=== PATIENT | female | born 1940 | race Caucasian/White ===

== ENCOUNTER → 2024-01-06 08:37 | Outpatient (REF) | payer OTHER, SELFPAY | LOC: RAD 08:37 | PROVIDERS: ATTENDING PHYSICIAN Surgery; FAMILY PHYSICIAN Family Medicine | DX: K21.9 Gastro-esophageal reflux disease without esophagitis (principal) | CPT/HCPCS: 74240 ==

== ENCOUNTER 2024-03-01 21:44 | Emergency (ER) | payer OTHER, SELFPAY ==
[2024-03-01 21:49] VITALS: BP 186/102
[2024-03-01 22:03] LABS: % Basophils 1.2 % (0-2); % Eosinophils 3.1 % (0-6); % Immature Granulocytes 0.3 % (0-0.5); % Lymphocytes 35.3 % (20.5-51.1); % Monocytes 11.4 % (1.7-9.3); % Neutrophils 48.7 % (42.2-75.2); Absolute Basophils 0.1 10^3/uL (0-0.2); Absolute Eosinophils 0.2 10^3/uL (0-0.7); Absolute Lymphocytes 2.3 10^3/uL (1.2-3.4); Absolute Monocytes 0.7 10^3/uL (0.1-0.6); Absolute Neutrophils 3.2 10^3/uL (1.4-6.5); Hematocrit 38.5 % (37.0-47.0); Hemoglobin 13.4 g/dL (12.0-16.0); Mean Corp Hgb Conc. 34.8 g/dL (33.0-37.0); Mean Corpuscular Volume 89.1 fL (81.0-99.0); Mean Platelet Volume 9.5 fL (7.4-10.4); Nucleated Red Blood Cells % 0 %; Platelet Count 289 10^3/uL (130-400); Red Blood Cell Count 4.32 10^6/uL (4.20-5.40); Red Cell Dist. Width 13.3 % (11.5-14.5); White Blood Cell Count 6.5 10^3/uL (4.8-10.8)
[2024-03-01 22:19] LABS: ALT (SGPT) 23 U/L (0-35); AST (SGOT) 40 U/L (14-36); Albumin 4.7 g/dl (3.5-5.0); Alkaline Phosphatase 82 U/L (38-126); Blood Urea Nitrogen 12 mg/dl (7-17); Calcium 10.1 mg/dl (8.4-10.2); Carbon Dioxide 26 mmol/L (22-30); Chloride 97 mmol/L (98-107); Glucose 101 mg/dl (70-99); Sodium 133 mmol/L (135-145); Total Bilirubin 1.2 mg/dl (0.2-1.3); Total Protein 7.4 g/dl (6.3-8.2); eGFR > 60.00
--- NOTE | 2024-03-02 00:38 | ED.GENMED ---
History of Present Illness
General
Chief Complaint: Abdominal Pain
Source: patient and family
Time Seen by Provider: 03/02/24 00:25
Travel History
Have you had any contact with someone who has COVID-19?: No
Do you have any symptoms of coronavirus? Fever > 100 degrees, chills, cough, shortness of breath, sore throat, loss of taste or smell, muscle aches, or headache?: No
History of Present Illness
History of Present Illness:
This patient is an 83-year-old female who says that right now she feels 'okay'. However, yesterday she says that she ate, had a bowel movement, and then noted nausea. She then had 2 episodes of vomiting, 1 brown in appearance and another green,
consider 'all liquid' without blood. She then noted discomfort across her lower abdomen particular the left lower quadrant which was reminiscent to her of when she had a bowel obstruction in the past. Her symptoms have gradually improved such that
she no longer has abdominal pain. She ate 3 meals today and is hungry now. She denies having any nausea or vomiting today. She has not had a bowel movement today. She denies abdominal distention, back pain, chest pain, shortness of breath, or
other complaints
Past History
Past History
ED Past Medical History: Cancer (ovarian), HTN, Hypercholesterolemia, Valvular disease (Mild tricuspid regurgitation) and Other (valve disorder)
ED Past Surgical History: Bowel resection (Small bowel resection for small bowel obstruction January 2017) and Other (Hysterectomy for ovarian CA, bilateral caataract surgery, sinus surgery, left inguinal hernia repair April 2018)
Social History
Tobacco: Former smoker
Alcohol: None
Drug: None
Personal:
Living: with family
Employment: Retired
Family History
Family History: Hypertension
Phy Exam
Physical Exam
Physical Exam:
GENERAL: Alert , in no apparent distress
EYE: pupils equal and reactive
NECK: Supple, no significant adenopathy.
ENT: o/p clr, mmm.
CARDIAC: Regular rate and rhythm .
LUNGS: Clear breath sounds bilaterally, no acute respiratory distress, no wheezes/rales/rhonchi
ABDOMEN: Soft, without focal tenderness, no r/g, no cvat, NABS
NEUROLOGICAL: Alert and oriented, no focal neuro deficits
SKIN: Warm and dry, skin intact.
MUSCULOSKELETAL: No edema, well perfused.
PSYCH: Normal and appropriate interaction.
Course
Orders/Labs/Results
Orders:
Orders
03/01/24 21:57
CMP [Comprehensive Metabolic Panel] Urgent
Complete Blood Count/With Diff Urgent
03/02/24 00:37
CR Obstruct Series W/pa Chest Urgent
Comment:
Reason For Exam: hx bowel resec, abd pain/n/v
Abnormal Lab Results
03/01/24
21:57
Absolute Monos (auto) 0.7 H 10^3/uL
(0.1-0.6)
Monocytes % 11.4 H %
(1.7-9.3)
Sodium 133 L mmol/L
(135-145)
Chloride 97 L mmol/L
(98-107)
Glucose 101 H mg/dl
(70-99)
AST 40 H U/L
(14-36)
03/01/24 21:57
03/01/24 21:57
Vital Signs
Initial and Last Documented VS:
Initial Vital Signs
Temp Pulse Resp BP Pulse Ox
98.2 F 110 20 186/102 100
03/01/24 21:49 03/01/24 21:49 03/01/24 21:49 03/01/24 21:49 03/01/24 21:49
Last Documented Vital Signs
Temp Pulse Resp BP Pulse Ox
98.2 F 70 16 163/80 96
03/01/24 21:49 03/02/24 01:52 03/02/24 01:52 03/02/24 01:52 03/02/24 01:52
*Critical Care Note
Total Time (30-74mins, 75-104mins- exclusive of procedures): Not Applicable
Update Note
Update Note:
Patient presents to the Emergency Department with ____abdominal pain nausea vomiting all resolved
Number and Complexity of Problems Addressed at the Encounter
� Chronic conditions affecting care:
� Acute Exacerbation and/or Progression of Chronic Illness:
� Differential Diagnosis includes: But not limited to transient bowel obstruction now resolved, diverticulitis, appendicitis, etc.
Amount and/or Complexity of Data to be Reviewed and Analyzed
� I performed an independent evaluation of and my interpretation is:
EKG:
CT:
Xrays:no obstr, no fa, no afl, air noted to level of rectum...nad
Laboratory Studies: Unremarkable
Other:
� Review of other/old records reveals:
� Clinical information was obtained by an independent historian: and son who are at bedside
� Prescriptions/Medications Considered but not given:
� Further testing considered but not performed:
Risk of Complications and/or Morbidity or Mortality of Patient Management
� Social determinants of health affecting care:
� Discussion with other providers (PCP, Hospitalists, Consultants, etc):
� Escalation of care including admission/observation vs risk of discharge considered:149am pt remains well appearing, comfortable, no sxs, no n/v, no abd pain or ttp.
Long d/w pt, son and ...she has a GI appt later today (Saturday) which she will keep, and aware of import of f/u and raesons to rted. Gvein reassurring exam, no n/v/f/etc, suspect she may have had early sbo that resolved.
ED Attending Note
-
Portions of this chart may have been created with voice recognition software.� Occasional wrong word or��sound alike� substitutions may have occurred due to the inherent limitations of voice recognition software.
Discharge Plan
Departure
Patient Disposition: Home (Routine Discharge)
Date of Disposition: 03/02/24
Time of Disposition: 01:50
Patient with high blood pressure during this ER visit?: Yes
Condition: Good
Discharge Problem:
Vomiting
Instructions: Nausea and Vomiting, Adult (DC), BLOOD PRESSURE
Prescriptions:
No Action
amlodipine 5 MG tablet
5 mg PO DAILY
Referrals:
Sandra Kerr MD [Family Provider] -
Activity Restrictions/Additional Instructions:
PLEASE SEE THE GI DOCTOR TODAY SCHEDULED. IF YOU DEVELOP FEVER, VOMITING, CHEST PAIN, TROUBLE BREATHING, ABDOMINAL PAIN, BLOATING, OR OTHER WORRISOME SIGNS, GO TO THE ER IMMEDIATELY!
Interventions
Interventions:
*Risk Screen - Suicide Last Done: 03/01/24 21:49
*General Assessment Last Done: 03/02/24 00:28
*Neglect/Abuse Screening Last Done: 03/01/24 21:49
ED- Fall Risk Assessment Last Done: 03/02/24 00:28
*ED COVID-19 Vaccine History Last Done: 03/02/24 00:28
*Nursing Disposition Last Done: 03/02/24 02:00
GW-Lyevme-Wessacneat Assessment Last Done: 03/02/24 00:28
Discharge Date and Time
Discharge Date/Time: 03/02/24 02:00
Print Language: UKRAINIAN
[2024-03-02 01:52] VITALS: BP 163/80
== END 2024-03-02 02:00 | disposition home or self-care (01) ==
LOC: EMR 21:44
PROVIDERS: Student in an Organized Health Care Education/Training Program; EMERGENCY PHYSICIAN Emergency Medicine; FAMILY PHYSICIAN Family Medicine
DX: R11.2 Nausea with vomiting, unspecified (principal); I10 Essential (primary) hypertension; E78.00 Pure hypercholesterolemia, unspecified; I07.1 Rheumatic tricuspid insufficiency; Z98.0 Intestinal bypass and anastomosis status; Z85.43 Personal history of malignant neoplasm of ovary; Z87.891 Personal history of nicotine dependence; Z88.0 Allergy status to penicillin; Z88.8 Allergy status to other drugs, medicaments and biological substances; Z91.040 Latex allergy status
CPT/HCPCS: 99283; 74022; 80053; 85025

== ENCOUNTER 2024-08-05 22:23 | Inpatient (IN) | payer OTHER, SELFPAY ==
[2024-08-05 19:09] VITALS: BP 86/58
[2024-08-05 19:28] VITALS: BMI 19.0
[2024-08-05 19:35] VITALS: BP 158/84
[2024-08-05] MEDS: NSS 1000 IV (19:55)
[2024-08-05] MEDS: ZOFRAN 4 MG IV ×2 (19:55→21:46)
[2024-08-05 20:00] VITALS: BP 161/82
[2024-08-05 20:14] LABS: % Basophils 0.8 % (0-2); % Eosinophils 0.2 % (0-6); % Immature Granulocytes 0.3 % (0-0.5); % Lymphocytes 9.7 % (20.5-51.1); Absolute Basophils 0.1 10^3/uL (0-0.2); Absolute Lymphocytes 0.9 10^3/uL (1.2-3.4); Absolute Monocytes 0.6 10^3/uL (0.1-0.6); Absolute Neutrophils 7.6 10^3/uL (1.4-6.5); Hematocrit 37.1 % (37.0-47.0); Hemoglobin 13.4 g/dL (12.0-16.0); Mean Corp Hgb Conc. 36.1 g/dL (33.0-37.0); Mean Corpuscular Hgb 30.5 pg (27.0-31.0); Mean Corpuscular Volume 84.5 fL (81.0-99.0); Mean Platelet Volume 9.7 fL (7.4-10.4); Nucleated Red Blood Cells % 0 %; Platelet Count 276 10^3/uL (130-400); Red Blood Cell Count 4.39 10^6/uL (4.20-5.40); Red Cell Dist. Width 13.3 % (11.5-14.5); White Blood Cell Count 9.2 10^3/uL (4.8-10.8)
--- NOTE | 2024-08-05 20:21 | ED.GENMED ---
History of Present Illness
General
Chief Complaint: Abdominal Symptoms
Source: patient and family (daughter)
Exam Limitations: none
Time Seen by Provider: 08/05/24 19:21
History of Present Illness
History of Present Illness:
This is a 84 year old female that comes in with c/o abd pain and vomiting. Patient states that she has a bowel obstruction. daughter states that in 2016 she had a bowel obstruction and ended up taking 3 feet of bowel out. States that she started
today with abd pain and vomiting. State that the GI specialist here that has seen her has been trying to change her diet to prevent this from happening. States that she was told that if she got severe pain and vomiting again to come to the ER so he
could see if there is an obstruction. States that she has abd pain, nausea, vomiting and has had diarrhea today. Daughter states that she had BM's up until she had surgery before. States that she has also felt dizzy. Denies any fever, chills, chest
pain, SOB, headache, urinary burning.
Past History
Past History
ED Past Medical History: Cancer (ovarian, Skin), HTN, Hypercholesterolemia, Valvular disease (Mild tricuspid regurgitation) and Other (valve disorder, Bowel obstruction, Osteoporotis)
ED Past Surgical History: Bowel resection (Small bowel resection for small bowel obstruction January 2017), Gynecological (Hysterectomy for ovarian CA) and Other ( bilateral cataract surgery, sinus surgery, left inguinal hernia repair April 2018 Hernia
surgery total X 3)
Social History
Tobacco: Former smoker
Alcohol: None
Drug: None
Personal:
Living: with family
Employment: Retired
Family History
Family History: Hypertension
Review of Systems
Review of Systems
All Other Systems: ROS reviewed and negative except as documented in HPI and ROS
Constitutional: Reports no symptoms; Denies fever or chills
EENT: Reports no symptoms
Respiratory: Reports no symptoms; Denies cough or trouble breathing
Cardiac: Reports no symptoms; Denies chest pain
ABD/GI: Reports abdominal pain, nausea, vomiting and diarrhea
: Reports no symptoms; Denies dysuria, frequency or urgency
Musculoskeletal: Reports no symptoms
Skin: Reports no symptoms
Neurological: Reports dizzy; Denies headache
Psychiatric: Reports no symptoms
Phy Exam
General Physical Exam
General Presentation: mild distress
General age: appears stated age
General Skin: warm and dry
General Habitus: elderly
General Mental: alert
General Hydration: dry mucous membranes
ENT Exam
ENT Exam: TM's normal, pharynx normal and neck supple
Eye Exam
Eye Exam: EOMI
Cardiovascular Exam
Cardiovascular Exam: regular rate/rhythm, no edema and normal peripheral pulses
Pulmonary Exam
Pulmonary Exam: lungs clear, no respiratory distress, no rales, chest non tender, no crackles, no rhonchi, no wheezing and no cough
Gastrointestinal Exam
Gastrointestinal Exam: soft, no organomegaly, no pulsatile mass, non distended, tender (Left sided tenderness and upper abd tenderness with palpation) and other (Hypoactive bowel sounds)
Musculoskeletal Exam
Musculoskeletal Exam: full ROM and no edema
Skin Exam
Skin Exam: normal color, warm/dry, no rash and no petechia
Psychiatric Exam
Psychiatric Exam: normal mood/affect
Course
Orders/Labs/Results
Orders:
Orders
08/05/24 19:39
Complete Blood Count/With Diff Urgent
Comprehensive Metabolic Panel Urgent
Lipase Urgent
08/05/24 19:49
Ondansetron Injectable [Zofran] 4 mg .ROUTE .STK-MED ONE
08/05/24 19:50
Ondansetron Injectable [Zofran] 4 mg IV NOW STA
08/05/24 19:53
0.9% Sodium Chloride 1000 ml [Nss] 1,000 ml IV BOLUS
08/05/24 19:54
CT Abd/pelvis W Iv Cont Urgent
Comment: History bowel obstruction. Unable toleratel oral
Reason For Exam: abd pain, vomiting,
08/05/24 20:00
Lactic Acid Urgent
08/05/24 20:27
Pantoprazole [Protonix IV] 40 mg IV NOW STA
Abnormal Lab Results
08/05/24 08/05/24
19:39 20:00
Absolute Neuts (auto) 7.6 H 10^3/uL
(1.4-6.5)
Absolute Lymphs (auto) 0.9 L 10^3/uL
(1.2-3.4)
Neutrophils % 82.0 H %
(42.2-75.2)
Lymphocytes % 9.7 L %
(20.5-51.1)
Sodium 132 L mmol/L
(135-145)
Chloride 96 L mmol/L
(98-107)
Carbon Dioxide 18 L mmol/L
(22-30)
Glucose 171 H mg/dl
(70-99)
Lactic Acid 2.1 H mmol/L
(0.7-2.0)
Calcium 10.3 H mg/dl
(8.4-10.2)
AST 37 H U/L
(14-36)
08/05/24 19:39
08/05/24 19:39
Sodium slightly low. Chloride low. Glucose nonfasting. Lactic acid elevation to 2.1,
Vital Signs
Initial and Last Documented VS:
Initial Vital Signs
Temp Pulse Resp BP Pulse Ox
97.9 F 68 16 86/58 98
08/05/24 19:08/05/24 19:08/05/24 19:09 08/05/24 19:09 08/05/24 19:09
Last Documented Vital Signs
Temp Pulse Resp BP Pulse Ox
97.9 F 72 20 161/82 99
08/05/24 19:09 08/05/24 20:30 08/05/24 20:30 08/05/24 20:00 08/05/24 20:30
MDM/Problems Addressed
Differential Diagnosis Includes:
Bowel obstruction, Viral synderom
MDM/Problems Addressed:
This is a 84 year old female that comes in with c/o abd pain, nausea, vomiting and diarrhea. States that this started today and that she feels that she has a bowel obstruction.
Will get labs, CT scan, Give IV fluids and Zofran.
Back into see patient. Explained that she does have a bowel obstrucation. Will admit patient. Hospitalist notified.
Chronic conditions affecting care: Previous abdomnial surgery
Acute Exacerbation and/or Progression of Chronic Illness: Previous abdomnial surgery
*Radiology
Radiology exam reviewed: radiology read reviewed (CT-Imaging for bowel pathology is limited by the lack of enteric contreast. There is a small bowel obstruction with fluid-filled loops of small bowel measuring up to 3.5cm. IN the abscence of enteric
contrast, and not able to definitively determine the site of obstruction. Suspected area of) and other (CT cont- Suspected area of obstruction if left upper pelvis anteriorly in an area where multiple surgical clips are present. )
*Pulse Oximetry
Patient hypoxic: no
*EKG
Interpreted by ED Provider?: NA
Rate: EKG- N/A
*Wall Taper Helper Interpretation
Rate: normal
Heart Rate: 86
Rhythm: sinus
*Critical Care Note
Total Time (30-74mins, 75-104mins- exclusive of procedures): Not Applicable
ED Attending Note
-
Portions of this chart may have been created with voice recognition software.� Occasional wrong word or��sound alike� substitutions may have occurred due to the inherent limitations of voice recognition software.
Discharge Plan
Departure
Patient Disposition: Admit
Date of Disposition: 08/05/24
Time of Disposition: 21:40
Admit to: Med/Surg
Presentation/result/management discussed w/ accepting MD/DO: Hospitalist
Patient with high blood pressure during this ER visit?: Yes
Condition: Good
Covid-19: Not Applicable
Discharge Problem:
SBO (small bowel obstruction)
Prescriptions:
No Action
vitamin E 670 mg (1,000 unit) Capsule
670 mg PO QWEEK
Patient Comments:
08/05/24: Patient does not have specific day of week she takes this.
polyethylene glycol 3350 [Miralax] 17 gram Powder In Packet
17 g PO DAILY
Theragen Tablet
1 tab PO DAILY
amlodipine 2.5 mg Tablet
2.5 mg PO DAILY
selenium 200 mcg Tablet
200 mcg PO QWEEK
Patient Comments:
08/05/24: Patient does not have specific day of week she takes this.
calcium carbonate [Calcium 600] 600 mg calcium (1,500 mg) Tablet
600 mg PO DAILY
coenzyme Q10 [CoQ-10] 100 mg Capsule
100 mg PO DAILYPRN PRN (Reason: supplement)
Visbiome 112.5 billion cell Capsule
1 cap PO DAILY
cholecalciferol (vitamin D3) [Vitamin D3] 50 mcg (2,000 unit) Tablet
50 mcg PO DAILY
psyllium husk [Metamucil] 0.4 gram Capsule
0.4 g PO DAILYPRN PRN (Reason: constipation)
Referrals:
Sandra Kerr MD [Family Provider] -
Interventions
Interventions:
*Risk Screen - Suicide Last Done: 08/05/24 19:09
*General Assessment Last Done: 08/05/24 19:28
*Neglect/Abuse Screening Last Done: 08/05/24 19:28
ED- Fall Risk Assessment Last Done: 08/05/24 19:32
*ED COVID-19 Vaccine History Last Done: 08/05/24 19:28
YV-Nkogbt-Yefufzdyij Assessment Last Done: 08/05/24 19:28
Discharge Date and Time
Print Language: VINCENTIAN
[2024-08-05 20:23] LABS: ALT (SGPT) 21 U/L (0-35); AST (SGOT) 37 U/L (14-36); Albumin 4.8 g/dl (3.5-5.0); Alkaline Phosphatase 76 U/L (38-126); Blood Urea Nitrogen 15 mg/dl (7-17); Calcium 10.3 mg/dl (8.4-10.2); Carbon Dioxide 18 mmol/L (22-30); Chloride 96 mmol/L (98-107); Estimated Creatinine Clearance 45 ml/min; Glucose 171 mg/dl (70-99); Sodium 132 mmol/L (135-145); Total Bilirubin 1.2 mg/dl (0.2-1.3); Total Protein 7.3 g/dl (6.3-8.2); eGFR > 60.00
[2024-08-05 20:24] LABS: Lipase 180 U/L (23-300)
[2024-08-05 20:26] LABS: Lactic Acid 2.1 mmol/L (0.7-2.0)
[2024-08-05] MEDS: PROTONIX IV 40 MG IV (20:31)
--- NOTE | 2024-08-05 22:24 | HPS.HSE ---
Addendum entered and electronically signed by Gigi Lopez MD 08/05/24 23:28:
NGT placed. Low intermittent suction.
Original Note:
Family Physician
-
Family Physician: Sandra Kerr
Chief Complaint
-
Abdominal pain and vomiting
History of Present Illness
This is an 84-year-old female with a past medical history of hypertension and her prior history of small bowel obstruction status post bowel resection who presents to the emergency department with 1 day of acute episode of vomiting and abdominal
pain.
Patient reports that she has had history of bowel dysfunction ever since her bowel resection and is being followed by GI. She vomiting and is being managed by dietary adjustments and patient has been instructed to come to the emergency department
if she has episodes of uncontrolled vomiting or abdominal pain. The patient reported that she had some diarrhea yesterday and today. Then she started having nausea and vomiting, with abdominal pain today. There is no radiation. She denies fevers
or chills. She reports that she has had at least 6 episodes of vomiting since being in the emergency department although has not subsided since she got the antiemetics. Patient reports bilious emesis. There has been no bloody emesis. She had
otherwise been in usual state of health.
in ED she was afebrile, hemodynamic stable with a blood pressure of 161/82 pulse of 72 and oxygen saturation of 99% on room air. CBC was unremarkable. Chemistry showed a sodium of 132 but is otherwise unremarkable. Lactic acid was 2.1. She had a
CT of the abdomen and pelvis which showed small bowel obstruction with fluid-filled loops of small bowel measuring up to 3.5 cm.
Medical History
Past Medical History
Past Medical History: Reports HTN and Hypercholesterolemia
Past Surgical History: Reports Bowel Resection
Social History
Tobacco: Non-smoker
Alcohol: None
Drug: None
Personal:
Living: With Family
Employment: Retired
Family History
Family History: Not pertinent
Allergies / Home Medications
Allergies reflects when Allergies were last updated in [employer].
Home Medications with original date entered in [employer]
Allergy/Medication List:
Allergies
Allergy/AdvReac Type Severity Reaction Status Date / Time
Arnica (Arnica [place]) Allergy severe Verified 08/05/24 19:12
hypertension
barium sulfate Allergy Unknown Verified 08/05/24 19:12
latex Allergy Unknown Verified 08/05/24 19:12
Penicillins Allergy Rash Verified 08/05/24 19:12
Home Medications
Lactobac no.2-Bifidobac no.1-S. thermo 112.5 billion cell capsule (Visbiome) 1 cap PO DAILY 08/05/24
amlodipine 2.5 mg tablet 2.5 mg PO DAILY 08/05/24
calcium carbonate (Calcium 600) 600 mg PO DAILY 08/05/24
cholecalciferol (vitamin D3) 50 mcg (2,000 unit) tablet (Vitamin D3) 50 mcg PO DAILY 08/05/24
coenzyme Q10 100 mg capsule (CoQ-10) 100 mg PO DAILYPRN PRN supplement 08/05/24
polyethylene glycol 3350 17 gram oral powder packet (Miralax) 17 g PO DAILY 08/05/24
psyllium husk 0.4 gram capsule (Metamucil) 0.4 g PO DAILYPRN PRN constipation 08/05/24
selenium 200 mcg tablet 200 mcg PO QWEEK 08/05/24
therapeutic multivitamin 1 tab PO DAILY 08/05/24
vitamin E 670 mg (1,000 unit) capsule 670 mg PO QWEEK 08/05/24
Review of Systems
-
History Source: Patient
Constitutional: Reports No Symptoms
EENT: Reports No Symptoms
Respiratory: Reports No Symptoms
Cardiac: Reports No Symptoms
Abdomen/GI: Reports Abdominal Pain, Nausea, Vomiting and Diarrhea
: Reports No Symptoms
Musculoskeletal: Reports No Symptoms
Skin: Reports No Symptoms
Neurological: Reports No Symptoms
Endocrine: Reports No Symptoms
Hematologic/Lymphatic: Reports No Symptoms
Psych: Reports No Symptoms
Physical Exam
Vital Signs
Vital Signs
Temp Pulse Resp BP Pulse Ox
97.9 F 72 20 161/82 99
08/05/24 19:09 08/05/24 20:30 08/05/24 20:30 08/05/24 20:00 08/05/24 20:30
Physical Exam
General: Appears in Distress
HEENT: NormoCephalic, Anicteric, Moist mucous membranes and Atraumatic
Respiratory: Clear
Cardiac: S1/S2 and Regular Rhythm
Breast: Deferred by me
GI: Soft, Non Distended, Normal Bowel Sounds and Tender
Rectal: Deferred by Provider
Genito-urinary: Deferred by me
Musculoskeletal: No Clubbing, No Cyanosis and No Edema
Skin: Warm
Neuro: AO x 3
Psych: Calm
Laboratory Results
-
08/05/24 19:39
08/05/24 19:39
Laboratory Results
Lactic Acid 2.1 mmol/L (0.7-2.0) H 08/05/24 20:00
Total Bilirubin 1.2 mg/dl (0.2-1.3) 08/05/24 19:39
AST 37 U/L (14-36) H 08/05/24 19:39
ALT 21 U/L (0-35) 08/05/24 19:39
Alkaline Phosphatase 76 U/L (38-126) 08/05/24 19:39
Lipase 180 U/L (23-300) 08/05/24 19:39
Data Reviewed
-
CT Scan: Report Reviewed by me
Lab Data: Labs Reviewed by me
Old Records: Reviewed
Impression/Plan
-
IMPRESSION:
84-year-old female with past medical history of hypertension, multiple inguinal surgery PS, history of bowel obstruction status post bowel resection who presents to the emergency department with acute episode of abdominal pain nausea vomiting found
to have a small bowel obstruction of about 3.5 cm with fluid-filled loops. Exam is nontoxic-appearing, she has not tenderness without significant distention. There is no guarding or rebound. She has positive bowel sounds. Last bowel movement was
earlier today. Unclear when she last passed any gas.
PLAN:
1. SBO - Likely secondary to adhesions given prior surgeries but could be related to anastomotic changes as she had a bowel resection in 2017.
- admit to med surg
- failed NG attempt in ED but hasn't vomited since zofran, holding off repeat attempt now. If vomiting occurs again explained to patient wwe have to put in.
- npo
- continue zofran prn, ppi iv daily, pain control
- d5lr iv at 75 ml/hr
- surgery consult.
DVT PPX - lovenox
Code Status - Full Code
--- NOTE | 2024-08-05 23:31 | ED.GENMED ---
History of Present Illness
General
Chief Complaint: Abdominal Symptoms
Time Seen by Provider: 08/05/24 19:21
Past History
Past History
ED Past Medical History: Cancer (ovarian, Skin), HTN, Hypercholesterolemia, Valvular disease (Mild tricuspid regurgitation) and Other (valve disorder, Bowel obstruction, Osteoporotis)
ED Past Surgical History: Bowel resection (Small bowel resection for small bowel obstruction January 2017), Gynecological (Hysterectomy for ovarian CA) and Other ( bilateral cataract surgery, sinus surgery, left inguinal hernia repair April 2018 Hernia
surgery total X 3)
Social History
Tobacco: Former smoker
Alcohol: None
Drug: None
Personal:
Living: with family
Employment: Retired
Family History
Family History: Hypertension
Course
Orders/Labs/Results
Orders:
Orders
08/05/24 19:39
Complete Blood Count/With Diff Urgent
Comprehensive Metabolic Panel Urgent
Lipase Urgent
08/05/24 19:49
Ondansetron Injectable [Zofran] 4 mg .ROUTE .STK-MED ONE
08/05/24 19:50
Ondansetron Injectable [Zofran] 4 mg IV NOW STA
08/05/24 19:53
0.9% Sodium Chloride 1000 ml [Nss] 1,000 ml IV BOLUS
08/05/24 19:54
CT Abd/pelvis W Iv Cont Urgent
Comment: History bowel obstruction. Unable toleratel oral
Reason For Exam: abd pain, vomiting,
08/05/24 20:00
Lactic Acid Urgent
08/05/24 20:27
Pantoprazole [Protonix IV] 40 mg IV NOW STA
08/05/24 21:41
NG Tube [GI tube insertion- Treatment] ONCE
08/05/24 21:42
Ondansetron Injectable [Zofran] 4 mg IV NOW STA
08/05/24 22:01
Admit/Transfer Patient As Directed
Co-Sign Provider:
Level of Care: Inpatient admission
Assign to:: Medical/Surgical
Physician / Group: hospitalist
Diagnosis: small bowel obstruction
Reason for Hospitalization: small bowel obstruction
Expected length of stay greater than two midnights?: Yes
ELOS- Estimated Length of Stay in days: 2
I certify the patient meets the requirements for IP care: Yes
Code Status As Directed
Resuscitation Status: Full Code
PRN Pain Medication Management As Directed
May give lesser potent ordered pain med per pt: Yes
preference::
Protocol:: Medication orders for pain may be administered in a
manner that supports deferring to patient preference
when the pt is:
- Requesting an ordered lesser potent pain medication.
Least to most potent pain medications are defined
as: acetaminophen < NSAID < tramadol < opioids
(morphine, oxycodone, hydromorphone).
- Requesting a lesser dose of the same medication IF
ORDERED.
- Requesting a less intrusive route of administration
if both routes are prescribed by the provider (PO <
IV).
08/06/24 08:00
Amlodipine [Norvasc] 2.5 mg PO DAILY
Abnormal Lab Results
08/05/24 08/05/24
19:39 20:00
Absolute Neuts (auto) 7.6 H 10^3/uL
(1.4-6.5)
Absolute Lymphs (auto) 0.9 L 10^3/uL
(1.2-3.4)
Neutrophils % 82.0 H %
(42.2-75.2)
Lymphocytes % 9.7 L %
(20.5-51.1)
Sodium 132 L mmol/L
(135-145)
Chloride 96 L mmol/L
(98-107)
Carbon Dioxide 18 L mmol/L
(22-30)
Glucose 171 H mg/dl
(70-99)
Lactic Acid 2.1 H mmol/L
(0.7-2.0)
Calcium 10.3 H mg/dl
(8.4-10.2)
AST 37 H U/L
(14-36)
08/05/24 19:39
08/05/24 19:39
Vital Signs
Initial and Last Documented VS:
Initial Vital Signs
Temp Pulse Resp BP Pulse Ox
97.9 F 68 16 86/58 98
08/05/24 19:09 08/05/24 19:09 08/05/24 19:09 08/05/24 19:09 08/05/24 19:09
Last Documented Vital Signs
Temp Pulse Resp BP Pulse Ox
97.9 F 81 22 161/82 99
08/05/24 19:09 08/05/24 22:45 08/05/24 22:45 08/05/24 20:00 08/05/24 20:30
ED Attending Note
ED Attending Note
I performed the substantive portion of visit, reviewed & personally made and approve the management plan that is documented in note by myself or MADINA.: Yes
ED Attending Note:
History, exam, and CT scan concerning for small bowel obstruction. Patient will be admitted for further evauationl and treatment, as patient continues to have symptoms, i.e. nausea/vomiting.
NG tube placed in ED, confirmed via x-ray.
-
Portions of this chart may have been created with voice recognition software.� Occasional wrong word or��sound alike� substitutions may have occurred due to the inherent limitations of voice recognition software.
Discharge Plan
Departure
Patient Disposition: Admit
Date of Disposition: 08/05/24
Time of Disposition: 21:40
Admit to: Med/Surg
Presentation/result/management discussed w/ accepting MD/DO: Hospitalist
Patient with high blood pressure during this ER visit?: Yes
Condition: Good
Covid-19: Not Applicable
Discharge Problem:
SBO (small bowel obstruction)
Interventions
Interventions:
*Risk Screen - Suicide Last Done: 08/05/24 19:09
*General Assessment Last Done: 08/05/24 19:28
*Neglect/Abuse Screening Last Done: 08/05/24 19:28
ED- Fall Risk Assessment Last Done: 08/05/24 19:32
*ED COVID-19 Vaccine History Last Done: 08/05/24 19:28
PD-Ijkaqb-Gzbfqfnlmb Assessment Last Done: 08/05/24 19:28
[2024-08-05 23:48] VITALS: BP 132/81
[2024-08-06] MEDS: D5LR 1000 IV ×2 (00:32→13:19)
--- NOTE | 2024-08-06 01:01 | PTCARENOTE ---
Patient arrived from the ED via stretcher at approximately 2345. Patient ambulated from stretcher to bed x1 assist. Patient AAOx3, [place] with b/l hearing aids. VSS as documented. Assessment as documented. Patient oriented to room. Bed in lowest
position. Call trevino within reach.
[2024-08-06 01:03] VITALS: BMI 18.4
[2024-08-06] MEDS: CHLORASEPTIC/SORE THROAT SPRAY 1 SPRAY PO ×3 (01:56→17:04)
[2024-08-06 02:07] LABS: Lactic Acid 1.3 mmol/L (0.7-2.0)
[2024-08-06] MEDS: ZOFRAN 4 MG IV (03:03)
[2024-08-06 03:38] VITALS: BP 151/77
[2024-08-06] MEDS: COMPAZINE 5 MG IV (05:32)
[2024-08-06 07:29] LABS: % Basophils 0.2 % (0-2); % Eosinophils 0.1 % (0-6); % Immature Granulocytes 0.4 % (0-0.5); % Monocytes 6.3 % (1.7-9.3); Absolute Lymphocytes 0.7 10^3/uL (1.2-3.4); Absolute Monocytes 0.5 10^3/uL (0.1-0.6); Absolute Neutrophils 7.2 10^3/uL (1.4-6.5); Hematocrit 37.4 % (37.0-47.0); Hemoglobin 13.1 g/dL (12.0-16.0); Mean Corpuscular Hgb 30.9 pg (27.0-31.0); Mean Corpuscular Volume 88.2 fL (81.0-99.0); Nucleated Red Blood Cells % 0 %; Red Blood Cell Count 4.24 10^6/uL (4.20-5.40); Red Cell Dist. Width 13.4 % (11.5-14.5); White Blood Cell Count 8.5 10^3/uL (4.8-10.8)
[2024-08-06 07:32] VITALS: BP 116/59
[2024-08-06 07:45] LABS: Blood Urea Nitrogen 9 mg/dl (7-17); Calcium 9.5 mg/dl (8.4-10.2); Carbon Dioxide 17 mmol/L (22-30); Chloride 103 mmol/L (98-107); Estimated Creatinine Clearance 42 ml/min; Glucose 139 mg/dl (70-99); Magnesium 2.1 mg/dl (1.6-2.3); Potassium 3.8 mmol/L (3.5-5.1); Sodium 137 mmol/L (135-145); eGFR > 60.00
[2024-08-06] MEDS: NORVASC PO (07:51)
--- NOTE | 2024-08-06 08:00 | PTCARENOTE ---
Patient ordered PO norvasc this AM, patient strict NPO with NGT to R nare hooked up to low intermittent suction. BP this AM taken by assistant director of nursing 116/59 HR 74. MD and resident made aware, stated to hold PO norvasc at this time, no indication for
IV alternative at this time.
--- NOTE | 2024-08-06 08:06 | W.PN.HOSP.TC ---
Addendum entered and electronically signed by Eagle Dallas MD 08/06/24 10:23:
I saw and evaluated the patient. I reviewed the resident�s note and agree with findings and plan as documented in the resident�s note.
No new complaints. Patient reports her abdomen feels better than at the time she was admitted.
Gen: NAD, awake and alert
Eyes: EOMI, PERRLA, no scleral icterus.
Neck: supple.
CV: RRR, +S1/S2, no m/r/g.
Resp: CTAB, no rales, wheezes, or rhonchi.
Abd: +BS, soft, mild tenderness to palpation, ND
Skin: No rashes.
Neuro: CN 2-12 intact, non-focal.
Psych: Normal mood and affect.
CT A/P: Imaging for bowel pathology is limited by the lack of enteric contrast.
There is small bowel obstruction with fluid-filled loops of small bowel measuring up to 3.5 cm.
In the absence of enteric contrast, and not able to definitively determine the site of obstruction. Suspected area of obstruction is left upper pelvis anteriorly in an area where multiple surgical clips are present.
Acute SBO:
-cont NGT to suction
-NPO/IVFs
-pain control
-c/s surgery
-depending on NGT outpt may need to consider repeat imaging with enteric contrast
Original Note:
Today's Communication/Plan
-
C/w NG Tube, NPO & IV Pain control/PPIs/Zofran. Follow surgery recs for diet advancement.
Assessment / Plan
Assessment / Plan
84 year old female with a past medical history of hypertension, hx of bowel resection with recurrent bowel dysfunction who presented to the ED for vomiting, nausea, diarrhea and abdominal pain.
#SBO, likely secondary to post-surgical adhesions
- Repeat NGT placed & draining approx 250cc
- Continue NPO
- C/w antiemetics Zofran prn, PPIs, IV
- IVF D5LR 75cc/hr
- Keep NPO for at least 24 hours, then slowly advance diet starting with clears and adjust as tolerated.
#HTN- pressures stable and patient is NPO. Hold for now, can consider IV if needed.
#Dispo - Med/Surg
#Diet - NPO
#DVT PPx - Lovenox SC
#Code Status - Full Code
Anticipated Discharge: 24 - 48 hours
Subjective/Interval History
-
Improvement in abd pain & nausea. Still requiring zofran & pain medication, but feels better than when she came in. NO acute events overnight.
Objective Data
-
Labs:
Laboratory Results
08/05/24 08/06/24
19:39 06:55
WBC 9.2 8.5
Hgb 13.4 13.1
Hct 37.1 37.4
Plt Count 276 Pending
Sodium 132 L 137
Potassium 4.0 3.8
Chloride 96 L 103
Carbon Dioxide 18 L 17 L
BUN 15 9
Creatinine 0.6 0.6
Glucose 171 H 139 H
Calcium 10.3 H 9.5
Total Bilirubin 1.2
AST 37 H
ALT 21
Alkaline Phosphatase 76
Vital Signs:
Vital Signs
Temp Pulse Resp BP Pulse Ox
99.3 F 74 18 116/59 98
08/06/24 07:32 08/06/24 07:32 08/06/24 07:32 08/06/24 07:32 08/06/24 07:32
I&O
08/05/24 08/06/24 08/07/24
06:59 06:59 06:59
Intake Total 0 / 0
Output Total 250 / 250
Balance -250 / -250
Review of Systems
-
History Source: Patient and Family
All other systems: Reviewed and negative
Constitutional: Reports No Symptoms; Denies Fever, Night Sweats or Chills
EENT: Reports No Symptoms Reported
Respiratory: Reports No Symptoms
Cardiac: Reports No Symptoms
Abdomen/GI: Reports Abdominal Pain and Nausea; Denies Vomiting, Diarrhea or Hematemesis
Breast: Reports No Symptoms
Genitourinary: Reports No Symptoms
Musculoskeletal: Reports No Symptoms
Skin: Reports No Symptoms
Neuro: Reports No Symptoms
Endocrine: Reports No Symptoms
Hematologic / Lymphatic: Reports No Symptoms
Allergy / Immunology: Reports No Symptoms
Physical Exam
-
General: Well Developed, Well Nourished, No Apparent Distress, Comfortable and Conversant
HEENT: Normocephalic, Atraumatic, Anicteric, [place] Conjunctivae and PERRLA
Respiratory: Clear to Auscultation; Negative Wheezes, Rales or Rhonchi
Cardiac: Regular Rhythm and S1/S2
Breast: Deferred by me
GI: Soft, Nondistended, Tender (Mild, worse in RLQ) and Other (NG tube); Negative Normal Bowel Sounds
Rectal: Deferred by Provider
Genito-urinary: Deferred by me
Musculoskeletal: No Clubbing, No Cyanosis and No Edema
Neuro: Awake, Alert, Oriented, No Motor Deficits, Nonfocal/Grossly Intact and No Sensory Deficits
Psych: Calm
[2024-08-06] MEDS: NSS (PRESERVATIVE FREE) 10 ML IV (11:05)
[2024-08-06] MEDS: PROTONIX IV 40 MG IV (11:05)
--- NOTE | 2024-08-06 12:40 | CM ---
Reviewed the chart notes and spoke with the patient and her spouse at the bedside. The patient currently has a NGT to suction. The patient resides with her spouse in a split level home with a total of three steps to enter. The patient reports no
DME/VN/SNF in the past. The patient confirmed her pharmacy of choice is the [facility].
Plan: Discharge plans will depend on the patient's progress.
[2024-08-06] MEDS: TORADOL 10 MG IV (14:06)
--- NOTE | 2024-08-06 14:31 | CON.GS ---
Medical History
-
Chief Complaint: SBO
History of Present Illness:
Patient is an 84 yo F with a PMH of HTN, HLD, ovarian cancer s/p open JOAO and BSO with adjuvant radiation, s/p multiple inguinal hernias, s/p exploratory laparotomy with lysis of adhesion and SBR [place] [address] Linn. Ms. Rothman presents with
24 hours of worsening abdominal pain, distention, nausea, vomiting. She has had intermittent episodes of similar symptoms at home. Patient and daughter report at least 12 prior episodes. Symptoms usually resolve with time. She has not recently
been hospitalized. Last bowel movement and flatus was yesterday. Currently she states that her symptoms are significantly improved, though no flatus or BM since admission. Afebrile.
Past Medical History
Past Medical History: HTN and Hypercholesterolemia
Past Surgical History: Bowel Resection (Ex lap with lysis of adhesions and SBR in [address] Linn) and Hernia Repair (Lap TEP by Dr. Linn in 2014, patient reports a history consistent with at least 2 other inguinal hernia repairs at OSHs)
Social History
Tobacco: Former Smoker (Years ago)
Alcohol: None
Drug: None
Personal:
Living: With Family
Family History
Family History: Reviewed & Not Pertinent
Allergies / Home Medications
Allergy/AdvReac Type Severity Reaction Status Date / Time
Arnica (Arnica [place]) Allergy severe Verified 08/05/24 19:12
hypertension
barium sulfate Allergy Unknown Verified 08/05/24 19:12
latex Allergy Unknown Verified 08/05/24 19:12
Penicillins Allergy Rash Verified 08/05/24 19:12
�Medication �Instructions �Recorded �Confirmed �Type
Lactobac no.2-Bifidobac no.1-S. 1 cap PO DAILY 08/05/24 08/05/24 History
thermo 112.5 billion cell capsule
(Visbiome)
amlodipine 2.5 mg tablet 2.5 mg PO DAILY 08/05/24 08/05/24 History
calcium carbonate (Calcium 600) 600 mg PO DAILY 08/05/24 08/05/24 History
cholecalciferol (vitamin D3) 50 50 mcg PO DAILY 08/05/24 08/05/24 History
mcg (2,000 unit) tablet (Vitamin
D3)
coenzyme Q10 100 mg capsule 100 mg PO DAILYPRN PRN supplement 08/05/24 08/05/24 History
(CoQ-10)
polyethylene glycol 3350 17 gram 17 g PO DAILY 08/05/24 08/05/24 History
oral powder packet (Miralax)
psyllium husk 0.4 gram capsule 0.4 g PO DAILYPRN PRN constipation 08/05/24 08/05/24 History
(Metamucil)
selenium 200 mcg tablet 200 mcg PO QWEEK 08/05/24 08/05/24 History
therapeutic multivitamin 1 tab PO DAILY 08/05/24 08/05/24 History
vitamin E 670 mg (1,000 unit) 670 mg PO QWEEK 08/05/24 08/05/24 History
capsule
Review of Systems
-
A 10 point review of systems was completed, and was negative except as per HPI.
Physical Exam
Vital Signs
Temp Pulse Resp BP Pulse Ox
99.3 F 74 18 116/59 98
08/06/24 07:32 08/06/24 07:32 08/06/24 07:32 08/06/24 07:32 08/06/24 10:18
08/05/24 08/06/24 08/07/24
06:59 06:59 06:59
Actual Weight 39.871 kg
Body Mass Index (BMI) 18.4
Lab Results
08/06/24 06:55
08/06/24 06:55
WBC 8.5 10^3/uL (4.8-10.8) 08/06/24 06:55
Hgb 13.1 g/dL (12.0-16.0) 08/06/24 06:55
Hct 37.4 % (37.0-47.0) 08/06/24 06:55
Plt Count 10^3/uL (130-400) 08/06/24 06:55
Abs Immat Gran (auto) 0.0 10^3/uL (0-0.05) 08/06/24 06:55
Neutrophils % 85.0 % (42.2-75.2) H 08/06/24 06:55
Physical Exam
General: Well Developed, Well Nourished and No Apparent Distress
HEENT: Normocephalic and Anicteric
Respiratory: Non Labored Respirations
Cardiac: Regular Rhythm
GI: Soft, Non Tender, Non Distended, Incisions (Well-healed) and Other (Nonperitoneal)
Musculoskeletal: No Edema
Skin: Warm and Dry
Neuro: Nonfocal/Grossly Intact
Data Reviewed
-
Radiology: Image Personally Visualized and interpreted
CT Scan: Image Personally Visualized and interpreted and Report Reviewed by me
Labs: Labs Reviewed by me
Assessment / Plan
-
Patient is a 84 yo F p/w SBO likely secondary to adhesions with possible underlying component of dysmotility related to chronic obstructions and prior radiation
Natural history and pathophysiology of bowel obstructions was discussed. Current workup including labs and CT scan imaging was reviewed. No evidence or concern for bowel ischemia either radiographically or clinically. Significant clinical
improvement. Recommend continued medical management with NGT decompression and IV fluid resuscitation. If no clinical improvement by tomorrow would recommend a UGI for both diagnostic and therapeutic purposes. Role of surgical intervention both
as a relates to acute management of bowel obstructions as well as preventing or limiting bowel obstructions in the setting of recurrent attacks was reviewed and discussed. All questions answered.
-- NPO, IVF
-- NGT decompression
-- Correct lytes, minimize narcotics, OOB/ambulation as able
-- UGI tomorrow if no improvement
[2024-08-06 15:41] VITALS: BP 124/62
--- NOTE | 2024-08-06 16:19 | PTCARENOTE ---
Patient states improvement of lower abdominal pain and nausea throughout shift; patient strict NPO, PRN toradol administered for abdominal pain rated 4/10, patient stated complete relief of pain after administration. Patient states feeling
fluctuating nausea throughout shift but denies need for PRN zofran at this time. NGT to R nare set to low intermittent suction draining brown colored fluid.
[2024-08-06] MEDS: LOVENOX 40 MG SC (17:00)
[2024-08-06 22:51] VITALS: BP 117/58
[2024-08-07] MEDS: CHLORASEPTIC/SORE THROAT SPRAY 1 SPRAY PO ×3 (02:34→13:14)
[2024-08-07] MEDS: D5LR 1000 IV ×2 (02:34→23:15)
[2024-08-07] MEDS: TORADOL 10 MG IV (04:02)
[2024-08-07 07:25] VITALS: BP 152/74
[2024-08-07 08:55] LABS: Hematocrit 35.7 % (37.0-47.0); Hemoglobin 12.2 g/dL (12.0-16.0); Mean Corp Hgb Conc. 34.2 g/dL (33.0-37.0); Mean Corpuscular Hgb 31.1 pg (27.0-31.0); Mean Corpuscular Volume 91.1 fL (81.0-99.0); Mean Platelet Volume 10.2 fL (7.4-10.4); Platelet Count 219 10^3/uL (130-400); Red Blood Cell Count 3.92 10^6/uL (4.20-5.40); Red Cell Dist. Width 13.8 % (11.5-14.5); White Blood Cell Count 6.6 10^3/uL (4.8-10.8)
[2024-08-07 09:07] LABS: Blood Urea Nitrogen 9 mg/dl (7-17); Calcium 9.1 mg/dl (8.4-10.2); Carbon Dioxide 21 mmol/L (22-30); Chloride 106 mmol/L (98-107); Estimated Creatinine Clearance 36 ml/min; Glucose 92 mg/dl (70-99); Phosphorus 3.5 mg/dl (2.5-4.5); Potassium 3.4 mmol/L (3.5-5.1); Sodium 140 mmol/L (135-145); eGFR > 60.00
[2024-08-07] MEDS: NORVASC PO (09:26)
[2024-08-07] MEDS: PROTONIX IV 40 MG IV (09:26)
[2024-08-07] MEDS: NSS (PRESERVATIVE FREE) 10 ML IV (09:27)
--- NOTE | 2024-08-07 09:28 | W.PN.HOSP.TC ---
Today's Communication/Plan
-
C/w NPO & NGT, pending Upper GI Series. Surgery following.
Assessment / Plan
Assessment / Plan
84 year old female with a past medical history of hypertension, hx of bowel resection with recurrent bowel dysfunction who presented to the ED for vomiting, nausea, diarrhea and abdominal pain.
#SBO, likely secondary to post-surgical adhesions
- Repeat NGT placed & total output 350cc
- Continue NPO
- C/w antiemetics Zofran prn, PPIs, IV
- IVF D5LR 75cc/hr
- To obtain Upper GI Series today. Will follow for results.
#HTN- pressures stable and patient is NPO. Hold for now, can consider IV anti-hypertensives if needed.
#Dispo - Med/Surg
#Diet - NPO
#DVT PPx - Lovenox SC
#Code Status - Full Code
Anticipated Discharge: 24 - 48 hours
Subjective/Interval History
-
Feeling much better this morning. Has been passing gas but has not passed stool. Her abdominal pain is improving. No new fevers or chills.
Objective Data
-
Labs:
Laboratory Results
08/07/24
07:48
WBC 6.6
Hgb 12.2
Hct 35.7 L
Plt Count 219 D
Sodium 140
Potassium 3.4 L
Chloride 106
Carbon Dioxide 21 L
BUN 9
Creatinine 0.7
Glucose 92
Calcium 9.1
Vital Signs:
Vital Signs
Temp Pulse Resp BP Pulse Ox
97.9 F 65 16 152/74 98
08/07/24 07:25 08/07/24 07:25 08/07/24 07:25 08/07/24 07:25 08/07/24 07:25
I&O
08/06/24 08/07/2408/08/24
06:59 06:59 06:59
Intake Total 1800 / 1800
Output Total 600 / 600
Balance 1200 / 1200
Review of Systems
-
History Source: Patient
All other systems: Reviewed and negative
Abdomen/GI: Reports Abdominal Pain and Nausea
Physical Exam
-
General: Well Developed, Well Nourished, No Apparent Distress and Comfortable
HEENT: Normocephalic, Atraumatic, Moist Mucous Membranes, Anicteric and PERRLA
Respiratory: Clear to Auscultation
Cardiac: Regular Rhythm and S1/S2
Breast: Deferred by me
GI: Nontender, Nondistended, Normal Bowel Sounds and Other (NG Tube)
Rectal: Deferred by Provider
Genito-urinary: Deferred by me
Musculoskeletal: No Clubbing, No Cyanosis and No Edema
Neuro: Awake, Alert and Oriented
--- NOTE | 2024-08-07 09:31 | W.PN.UPDATE ---
Update Note
Progress Note Update
84-year-old female with SBO
I personally performed a history and physical exam of the patient and discussed management with the resident. I reviewed the resident's note and agree with the documented findings and plan of care HPI/CC except changes in my documentation
CVS: S1-S2 normal
Chest: CTA B/L
Abdomen: Soft, nontender, no bowel sounds appreciated
Extremities: No edema,
CT A/P: Imaging for bowel pathology is limited by the lack of enteric contrast.There is small bowel obstruction with fluid-filled loops of small bowel measuring up to 3.5 cm.In the absence of enteric contrast, and not able to definitively determine
the site of obstruction. Suspected area of obstruction is left upper pelvis anteriorly in an area where multiple surgical clips are present.
# Partial small bowel obstruction
History of exploratory laparotomy with lysis adhesions and small bowel resection in 2017
NG tube management
Conservative management
Small bowel follow-through [id number]-[id number]-cxqvx partial small bowel obstruction. Spot of obstruction , not clear.
NGT,N.p.o. and IV fluids
# Hypokalemia-replace
# Mild hyponatremia resolved
# mildly elevated lactic acid-not significant
# Atrial wrhtgxscskio-uerubgyagp-zeyzzwnog in 2017 spontaneously converted to sinus rhythm. Follows up with Dr. Munoz. Does not seem to be on anticoagulation or rate control agents . Not sure if due to low burden or one time event post op only.
# Hypertension-monitor blood pressure while n.p.o. takes amlodipine 2.5 g daily at home
# History of ovarian cancer status post open JOAO and BSO with adjuvant radiation
# Osteopenia/osteoporosis
# Under weight
# Ex-smoker
# DVT prophylaxis-subcutaneous Lovenox
# Full code
Discussed with nursing
--- NOTE | 2024-08-07 09:36 | W.PN.GS2 ---
Today's Communication / Plan
-
Small bowel follow-through today.
Assessment / Plan
-
This is a very pleasant 84-year-old female with a history of ovarian cancer s/p JOAO/BSO, inguinal hernia repairs, XL/SBT for SBO who presents with 24 hours of abdominal pain, nausea and vomiting. She has had similar episodes since her last surgery
but all have been managed at home. CT scan here concerning for recurrent small bowel obstruction, clinically however improving with +flatus and decreased abdominal pain.
Will obtain a small bowel follow-through with Omnipaque today, okay to give contrast via NG.
N.p.o., IV fluids, continue NG tube to low intermittent wall suction.
If upper GI is positive we will discuss surgery timing but if negative, will hopefully be able to remove NG and start on a clear liquid diet.
Up and out of bed, ambulate as able.
All questions answered, patient and daughter agreeable to plan of care above.
General surgery will continue to follow.
Time Spent
Total Time Spent with Patient (in minutes): 20
Subjective Data
-
Date of Service: August 07, 2024
Interval Events:
No acute events overnight. Slept well. Pain Controlled. Denies Nausea/Vomiting, +bowel function. Minimal NG tube output
Objective Data
-
Intake and Output
08/06/24 08/07/24 08/08/24
06:59 06:59 06:59
Intake Total 1800 / 1800
Output Total 600 / 600
Balance 1200 / 1200
Intake:
IV fluids (Total) 1800 / 1800
Amount instilled into GI Tube ( 0 / 0
Total)
[place] Sump 0 / 0
Output:
Gastrointestinal tube output ( 600 / 600
Total)
[place] Sump 600 / 600
Other:
Number of approximated MODERATE 3
amounts of urine
Vital Signs
Temp Pulse Resp BP Pulse Ox
97.9 F 65 16 152/74 98
08/07/24 07:25 08/07/24 07:25 08/07/24 07:25 08/07/24 07:25 08/07/24 07:25
Lab Results
08/07/24 07:48
08/07/24 07:48
Calcium 9.1 mg/dl (8.4-10.2) 08/07/24 07:48
Phosphorus 3.5 mg/dl (2.5-4.5) 08/07/24 07:48
Magnesium 2.0 mg/dl (1.6-2.3) 08/07/24 07:48
Total Bilirubin 1.2 mg/dl (0.2-1.3) 08/05/24 19:39
AST 37 U/L (14-36) H 08/05/24 19:39
ALT 21 U/L (0-35) 08/05/24 19:39
Alkaline Phosphatase 76 U/L (38-126) 08/05/24 19:39
Total Protein 7.3 g/dl (6.3-8.2) 08/05/24 19:39
Albumin 4.8 g/dl (3.5-5.0) 08/05/24 19:39
Physical Exam
-
GENERAL/NEURO: Awake, Alert, no distress
CHEST: Unlabored breathing on RA
ABDOMEN: Soft, Non-Tender, distended, NG tube with scant light brown output.
--- NOTE | 2024-08-07 11:34 | CM ---
Reviewed the chart notes and spoke with the patient at the bedside. Patient for small bowel follow-through with Omnipaque today. NGT to low suction continues. Will need PT evaluation prior to discharge. CM continues to be available to
patient/family and is monitoring medical plan for needs at discharge.
Plan: Discharge plans will depend on the patient's progress.
[2024-08-07] MEDS: KCL 270 MEQ IV (13:01)
--- NOTE | 2024-08-07 13:22 | PN.CDI ---
CDI
- -
CDI:
Physician Documentation Request
Admit Date: 08/05/24 22:23
Dear Doctor Gallo,
Patient admitted with acute SBO.
08/05 Na level 132.
Patient received IV NSS.
Based on the above, could you clarify in the progress notes, the appropriate diagnosis, if significant, that supports the above abnormalities and additional evaluation, monitoring and/or treatment rendered:
Hyponatremia
Insignificant abnormal lab findings
Other
Use of terms such as suspected, likely, concern for, or probable (associated with a specific diagnosis that is being evaluated, monitored, or treated as if it exists) are acceptable and can be coded in the inpatient setting, when documented at the
time of discharge.
Thank you,
Dona THORNTON,RN,CCDS
CDI Specialist
Available via [place] text
Please use your independent medical judgment in providing your response.
--- NOTE | 2024-08-07 13:35 | PN.CDI ---
CDI
- -
CDI:
Physician Documentation Request
Admit Date: 08/05/24 22:23
Dear Doctor Gallo,
Patient admitted with acute SBO.
Please review the following and provide your response in the progress notes.
Clinical Indicators: 08/06/24
Height: 4' 10'
Weight: 87 lb 14 oz
BMI: 18.4
Please provide an associated diagnosis related to the abnormal BMI, such as:
Underweight
Cachectic
Anorexia
BMI is not significant
Other
BMI < or = to 19
Underweight
Weight Loss
Cachectic
Anorexia
Use of terms such as suspected, likely, concern for, or probable (associated with a specific diagnosis that is being evaluated, monitored, or treated as if it exists) are acceptable and can be coded in the inpatient setting, when documented at the
time of discharge.
Thank you,
Dona THORNTON,RN,CCDS
CDI Specialist
Available via [place] text
Please use your independent medical judgment in providing your response.
--- NOTE | 2024-08-07 13:48 | PN.CDI ---
CDI
- -
CDI:
Physician Documentation Request
Admit Date: 08/05/24 22:23
Dear Doctor Gallo,
Patient admitted with acute SBO.
08/07 Small Bowel X-ray, 'IMPRESSION: Low-grade partial small bowel obstruction...'
Please review the following and provide your response in the progress notes.
Clinical Indicators:
The diagnosis of low-grade partial small bowel obstruction was included in the signed small bowel x-ray.
Please indicate in your progress notes if you are in agreement that the above diagnosis is valid for this patient:
____ - Partial small bowel obstruction is a valid diagnosis (Please include it in your progress notes)
____ - Partial small bowel obstruction is not a valid diagnosis for this patient
____ - Other
Use of terms such as suspected, likely, concern for, or probable are acceptable for a diagnosis that is being evaluated, monitored or treated as if it exists and can be coded in the inpatient setting, when documented at the time of discharge.
Thank you,
Dona THORNTON,RN,CCDS
CDI Specialist
Available via [employer] text
Please use your independent medical judgment in providing your response.
[2024-08-07 15:25] VITALS: BP 163/77
[2024-08-07 16:30] VITALS: BMI 18.4
[2024-08-07] MEDS: LOVENOX 40 MG SC (18:17)
[2024-08-07 23:49] VITALS: BP 138/65
[2024-08-08 07:33] LABS: Hematocrit 32.9 % (37.0-47.0); Hemoglobin 11.2 g/dL (12.0-16.0); Mean Corpuscular Hgb 30.6 pg (27.0-31.0); Mean Corpuscular Volume 89.9 fL (81.0-99.0); Mean Platelet Volume 10.1 fL (7.4-10.4); Platelet Count 202 10^3/uL (130-400); Red Blood Cell Count 3.66 10^6/uL (4.20-5.40); Red Cell Dist. Width 13.7 % (11.5-14.5); White Blood Cell Count 7.3 10^3/uL (4.8-10.8)
[2024-08-08 07:35] VITALS: BP 158/67
[2024-08-08 08:00] LABS: Blood Urea Nitrogen 8 mg/dl (7-17); Calcium 9.2 mg/dl (8.4-10.2); Carbon Dioxide 28 mmol/L (22-30); Chloride 108 mmol/L (98-107); Estimated Creatinine Clearance 42 ml/min; Glucose 107 mg/dl (70-99); Potassium 3.2 mmol/L (3.5-5.1); Sodium 145 mmol/L (135-145); eGFR > 60.00
[2024-08-08] MEDS: NSS (PRESERVATIVE FREE) 10 ML IV (08:54)
[2024-08-08] MEDS: NORVASC PO (08:55)
[2024-08-08] MEDS: PROTONIX IV 40 MG IV (08:55)
--- NOTE | 2024-08-08 09:37 | W.PN.GS2 ---
Today's Communication / Plan
-
d/c ngt
clear liquids
Assessment / Plan
-
This is a very pleasant 84-year-old female with a history of ovarian cancer s/p JOAO/BSO, inguinal hernia repairs, XL/SBT for SBO who presents with 24 hours of abdominal pain, nausea and vomiting. She has had similar episodes since her last surgery
but all have been managed at home. CT scan here concerning for recurrent small bowel obstruction, clinically however improving with +flatus and decreased abdominal pain.
08/07/24 SBFT consistent with partial SBO
08/08/24 f/u XR much improved, with contrast within the colon
--D/C NGT and start clear liquids
--OOB/Ambulate
--No surgery planned at this time. Medical care as per primary team
Subjective Data
-
Date of Service: August 08, 2024
Patient seen and examined at bedside with Dr. Gray. Denies n/v. Passing a lot of flatus and loose stools. Denies pain. Feeling much better. Family updated at bedside and questions addressed
Objective Data
-
Intake and Output
08/07/24 08/08/24 08/09/24
06:59 06:59 06:59
Intake Total 1800 / 1800 1740 / 1740
Output Total 600 / 600
Balance 1200 / 1200 1740 / 1740
Intake:
Oral fluids 0 / 0
IV fluids (Total) 1800 / 1800 1350 / 1350
IV piggybacks 390 / 390
Amount instilled into GI Tube ( 0 / 0
Total)
Lee Sump 0 / 0
Output:
Gastrointestinal tube output ( 600 / 600
Total)
Lee Sump 600 / 600
Other:
Number of approximated MODERATE 3 4
amounts of urine
Number of approximated LARGE 1
amounts of urine
Vital Signs
Temp Pulse Resp BP Pulse Ox
97.9 F 66 16 158/67 97
08/08/24 07:35 08/08/24 07:35 08/08/24 07:35 08/08/24 07:35 08/08/24 07:35
Lab Results
08/08/24 07:00
08/08/24 07:00
Calcium 9.2 mg/dl (8.4-10.2) 08/08/24 07:00
Phosphorus 3.5 mg/dl (2.5-4.5) 08/07/24 07:48
Magnesium 2.0 mg/dl (1.6-2.3) 08/07/24 07:48
Total Bilirubin 1.2 mg/dl (0.2-1.3) 08/05/24 19:39
AST 37 U/L (14-36) H 08/05/24 19:39
ALT 21 U/L (0-35) 08/05/24 19:39
Alkaline Phosphatase 76 U/L (38-126) 08/05/24 19:39
Total Protein 7.3 g/dl (6.3-8.2) 08/05/24 19:39
Albumin 4.8 g/dl (3.5-5.0) 08/05/24 19:39
Physical Exam
-
GENERAL/NEURO: Awake, Alert, no distress
CHEST: Unlabored breathing on RA
ABDOMEN: Soft, Non-Tender, mildly distended (improved), NG tube with scant light brown output.
--- NOTE | 2024-08-08 10:19 | W.PN.HOSP.TC ---
Today's Communication/Plan
-
Clears if Ok with surgery
Assessment / Plan
Assessment / Plan
84 year old female with a past medical history of hypertension, hx of bowel resection with recurrent bowel dysfunction who presented to the ED for vomiting, nausea, diarrhea and abdominal pain.
CVS: S1-S2 normal
Chest: CTA B/L
Abdomen: Soft, NT , Bowel sounds appreciated
Extremities: No edema,
Abdomen X ray reviewed by me. Looks better.
CT A/P: Imaging for bowel pathology is limited by the lack of enteric contrast.There is small bowel obstruction with fluid-filled loops of small bowel measuring up to 3.5 cm.In the absence of enteric contrast, and not able to definitively determine
the site of obstruction. Suspected area of obstruction is left upper pelvis anteriorly in an area where multiple surgical clips are present.
# Partial small bowel obstruction
History of exploratory laparotomy with lysis adhesions and small bowel resection in 2017
Conservative management
Take NGT out if Ok with surgery and start clears
# Hypokalemia-replace
# Mild hyponatremia resolved
# mildly elevated lactic acid-not significant
# Atrial gwxrgkyowhgd-fhlvuxxxvb-lkamihudf in 2017 spontaneously converted to sinus rhythm. Follows up with Dr. Munoz. Does not seem to be on anticoagulation or rate control agents . Not sure if due to low burden or one time event post op only.
Son states that she has seen universal branch consultant and no further recommendations from him at that time. She sees him yearly.
# Hypertension-monitor blood pressure while n.p.o. takes amlodipine 2.5 g daily at home
# History of ovarian cancer status post open JOAO and BSO with adjuvant radiation
# Osteopenia/osteoporosis
# Under weight
# Ex-smoker
# DVT prophylaxis-subcutaneous Lovenox
# Full code
D/W Son at bed side
Discussed with nursing
Anticipated Discharge: Within 24 hours
Subjective/Interval History
-
Date of Service: August 08, 2024
Objective Data
-
Labs:
Laboratory Results
08/08/24
07:00
WBC 7.3
Hgb 11.2 L
Hct 32.9 L
Plt Count 202
Sodium 145
Potassium 3.2 L
Chloride 108 H
Carbon Dioxide 28
BUN 8
Creatinine 0.6
Glucose 107 H
Calcium 9.2
Vital Signs:
Vital Signs
Temp Pulse Resp BP Pulse Ox
97.9 F 66 16 158/67 97
08/08/24 07:35 08/08/24 07:35 08/08/24 07:35 08/08/24 07:35 08/08/24 07:35
I&O
08/07/24 08/08/24 08/09/24
06:59 06:59 06:59
Intake Total 1800 / 1800 1740 / 1740
Output Total 600 / 600
Balance 1200 / 1200 1740 / 1740
[2024-08-08] MEDS: KCL 270 MEQ IV (10:44)
[2024-08-08 15:20] VITALS: BP 163/85
[2024-08-08] MEDS: LOVENOX 40 MG SC (17:05)
[2024-08-08] MEDS: D5LR 1000 IV (17:05)
[2024-08-08 23:23] VITALS: BP 147/74
[2024-08-09 07:25] VITALS: BP 159/86
[2024-08-09] MEDS: NORVASC 2.5 MG PO (08:16)
[2024-08-09] MEDS: NSS (PRESERVATIVE FREE) 10 ML IV (08:16)
[2024-08-09] MEDS: PROTONIX IV 40 MG IV (08:16)
[2024-08-09 08:41] LABS: Blood Urea Nitrogen 6 mg/dl (7-17); Calcium 9.1 mg/dl (8.4-10.2); Carbon Dioxide 27 mmol/L (22-30); Chloride 101 mmol/L (98-107); Estimated Creatinine Clearance 42 ml/min; Glucose 88 mg/dl (70-99); Magnesium 1.9 mg/dl (1.6-2.3); Potassium 3.2 mmol/L (3.5-5.1); Sodium 139 mmol/L (135-145); eGFR > 60.00
--- NOTE | 2024-08-09 09:32 | W.PN.GS2 ---
Addendum entered and electronically signed by Armin Gray MD 08/09/24 10:41:
I saw and examined the patient independently.
The Gas Well Drilling Manager's note was reviewed and I agree with the note, assessment and plan except where noted below.
Comment: This is an 84-year-old female with a history of ovarian cancer s/p JOAO/BSO, inguinal hernia repairs, XL/SBR for SBOs who presents with 24 hours of abdominal pain, nausea and vomiting. She has had similar episodes since her last surgery
but all have been managed at home. CT scan here concerning for recurrent small bowel obstruction, clinically however improving with +flatus and decreased abdominal pain, though still distended on exam.
Will advance to a full liquid diet, possible low residue diet later today if she continues to improve clinically.
Out of bed and ambulate. Consider PT OT if mobility limited.
Anticipate discharge home later tonight versus tomorrow pending clinical course.
General surgery will continue to follow.
Original Note:
Today's Communication / Plan
-
Full liquids
Assessment / Plan
-
This is a very pleasant 84-year-old female with a history of ovarian cancer s/p JOAO/BSO, inguinal hernia repairs, XL/SBT for SBO who presents with 24 hours of abdominal pain, nausea and vomiting. She has had similar episodes since her last surgery
but all have been managed at home. CT scan here concerning for recurrent small bowel obstruction, clinically however improving with +flatus and decreased abdominal pain.
08/07/24 SBFT consistent with partial SBO
08/08/24 f/u XR much improved, with contrast within the colon, NGT removed and CLD started
AFVSS
Passing stool/flatus, tolerating clears
--Advance to FLD
--OOB/Ambulate
--No surgery planned at this time. Medical care as per primary team
Subjective Data
-
Date of Service: August 09, 2024
Patient seen and examined at bedside. Passing flatus and stools. Denies pain, nausea or vomiting. Feels much better than on admission
Objective Data
-
Intake and Output
08/08/24 08/09/24 08/10/24
06:59 06:59 06:59
Intake Total 1740 / 1740 2530 / 2530
Balance 1740 / 1740 2530 / 2530
Intake:
Oral fluids 0 / 0 900 / 900
IV fluids (Total) 1350 / 1350 1200 / 1200
IV piggybacks 390 / 390 430 / 430
Other:
Number of approximated SMALL 2
amounts of urine
Number of approximated MODERATE 4 2
amounts of urine
Number of approximated LARGE 1 2
amounts of urine
Number of unmeasured liquid
stools
Rectum 1
Vital Signs
Temp Pulse Resp BP Pulse Ox
97.4 F 66 16 159/86 100
08/09/24 07:25 08/09/24 08:16 08/09/24 07:25 08/09/24 08:16 08/09/24 07:25
Lab Results
08/08/24 07:00
08/09/24 07:03
Calcium 9.1 mg/dl (8.4-10.2) 08/09/24 07:03
Phosphorus 3.5 mg/dl (2.5-4.5) 08/07/24 07:48
Magnesium 1.9 mg/dl (1.6-2.3) 08/09/24 07:03
Total Bilirubin 1.2 mg/dl (0.2-1.3) 08/05/24 19:39
AST 37 U/L (14-36) H 08/05/24 19:39
ALT 21 U/L (0-35) 08/05/24 19:39
Alkaline Phosphatase 76 U/L (38-126) 08/05/24 19:39
Total Protein 7.3 g/dl (6.3-8.2) 08/05/24 19:39
Albumin 4.8 g/dl (3.5-5.0) 08/05/24 19:39
Physical Exam
-
GENERAL/NEURO: Awake, Alert, no distress
CHEST: Unlabored breathing on RA
ABDOMEN: Soft, Non-Tender, minimal distention with some tympany noted
[2024-08-09] MEDS: KCL 40 MEQ PO (13:54)
[2024-08-09] MEDS: KCL 260 MEQ IV (13:55)
--- NOTE | 2024-08-09 14:51 | W.PN.HOSP.TC ---
Today's Communication/Plan
-
Diet per Surgery
Replace K
If tolerates diet possible discharge tomorrow
Assessment / Plan
Assessment / Plan
84 year old female with a past medical history of hypertension, hx of bowel resection with recurrent bowel dysfunction who presented to the ED for vomiting, nausea, diarrhea and abdominal pain.
CVS: S1-S2 normal
Chest: CTA B/L
Abdomen: Soft, NT , Bowel sounds appreciated
Extremities: No edema
Abdomen X ray reviewed by me. Looks better.
CT A/P: Imaging for bowel pathology is limited by the lack of enteric contrast.There is small bowel obstruction with fluid-filled loops of small bowel measuring up to 3.5 cm.In the absence of enteric contrast, and not able to definitively determine
the site of obstruction. Suspected area of obstruction is left upper pelvis anteriorly in an area where multiple surgical clips are present.
# Partial small bowel obstruction
History of exploratory laparotomy with lysis adhesions and small bowel resection in 2017
Conservative management
tolerated clears, now on Full liquids
# Hypokalemia-replace
# Mild hyponatremia resolved
# mildly elevated lactic acid-not significant
# Atrial mrzfdpuvccvu-oxuqsfktni-oijqiydpx in 2017 spontaneously converted to sinus rhythm. Follows up with Dr. Munoz. Does not seem to be on anticoagulation or rate control agents . Not sure if due to low burden or one time event post op only.
Son states that she has seen mucker operator and no further recommendations from him at that time. She sees him yearly.
# Hypertension-monitor blood pressure while n.p.o. takes amlodipine 2.5 g daily at home
# History of ovarian cancer status post open JOAO and BSO with adjuvant radiation
# Osteopenia/osteoporosis
# Under weight
# Ex-smoker
# DVT prophylaxis-subcutaneous Lovenox
# Full code
D/W daughter at bed side
Discussed with nursing
Anticipated Discharge: Within 24 hours
Subjective/Interval History
-
Date of Service: August 09, 2024
Objective Data
-
Labs:
Laboratory Results
08/09/24
07:03
Sodium 139
Potassium 3.2 L
Chloride 101
Carbon Dioxide 27
BUN 6 L
Creatinine 0.6
Glucose 88
Calcium 9.1
Vital Signs:
Vital Signs
Temp Pulse Resp BP Pulse Ox
97.4 F 66 16 159/86 100
08/09/24 07:25 08/09/24 08:16 08/09/24 07:25 08/09/24 08:16 08/09/24 07:25
I&O
08/08/24 08/09/24 08/10/24
06:59 06:59 06:59
Intake Total 1740 / 1740 2530 / 2530
Balance 1740 / 1740 2530 / 2530
[2024-08-09 15:20] VITALS: BP 132/68
[2024-08-09 15:27] LABS: Hematocrit 34.2 % (37.0-47.0); Hemoglobin 11.8 g/dL (12.0-16.0)
[2024-08-09] MEDS: LOVENOX 40 MG SC (17:40)
[2024-08-09 23:27] VITALS: BP 128/76
--- NOTE | 2024-08-10 03:00 | PTCARENOTE ---
Patient ambulating in hallway
[2024-08-10 07:25] VITALS: BP 142/79
[2024-08-10] MEDS: NORVASC 2.5 MG PO (08:00)
[2024-08-10] MEDS: PROTONIX IV 40 MG IV (08:00)
[2024-08-10] MEDS: NSS (PRESERVATIVE FREE) 10 ML IV (08:00)
[2024-08-10 08:35] LABS: Blood Urea Nitrogen 14 mg/dl (7-17); Calcium 9.4 mg/dl (8.4-10.2); Carbon Dioxide 20 mmol/L (22-30); Chloride 105 mmol/L (98-107); Estimated Creatinine Clearance 42 ml/min; Glucose 86 mg/dl (70-99); Potassium 4.5 mmol/L (3.5-5.1); Sodium 137 mmol/L (135-145); eGFR > 60.00
--- NOTE | 2024-08-10 08:39 | W.PN.GS2 ---
Addendum entered and electronically signed by Armin Gray MD 08/10/24 09:37:
I saw and examined the patient independently.
The Vice President Integrated's note was reviewed and I agree with the note, assessment and plan except where noted below.
Comment: 84-year-old female with small bowel obstruction clinically improved.
Would continue a low residue diet indefinitely given her history of recurrent small bowel obstructions.
Patient can follow-up with me as an outpatient as needed.
Okay to discharge home today from a surgical standpoint, will defer to primary team.
Original Note:
Today's Communication / Plan
-
LRD
Assessment / Plan
-
This is a very pleasant 84-year-old female with a history of ovarian cancer s/p JOAO/BSO, inguinal hernia repairs, XL/SBT for SBO who presents with 24 hours of abdominal pain, nausea and vomiting. She has had similar episodes since her last surgery
but all have been managed at home. CT scan here concerning for recurrent small bowel obstruction, clinically however improving with +flatus and decreased abdominal pain.
08/07/24 SBFT consistent with partial SBO
08/08/24 f/u XR much improved, with contrast within the colon, NGT removed and CLD started
AFVSS
Passing stool/flatus, tolerating LRD
--Continue LRD
--OOB/Ambulate
--Ok for discharge from surgical standpoint. Medical care as per primary team
Subjective Data
-
Date of Service: August 10, 2024
Patient seen and examined at bedside with Dr. Gray. Ryan n/v. Had some gas pains overnight but continues to pass flatus and stools.
Objective Data
-
Intake and Output
08/09/24 08/10/24 08/11/24
06:59 06:59 06:59
Intake Total 2530 / 2530 1445 / 1445
Balance 2529 / 0 1445 / 1445
Intake:
Oral fluids 900 / 900 1110 / 1110
IV fluids (Total) 1200 / 1200 335 / 335
IV piggybacks 430 / 430
Other:
Number of approximated SMALL 2 1
amounts of urine
Number of approximated MODERATE 2 5
amounts of urine
Number of approximated LARGE 2
amounts of urine
How many times incontinent 3
MODERATE amount urine
Number of unmeasured liquid
stools
Rectum 1 1
Vital Signs
Temp Pulse Resp BP Pulse Ox
98.3 F 63 17 142/79 98
08/09/24 23:27 08/10/24 08:00 08/09/24 23:27 08/10/24 08:00 08/09/24 23:27
Lab Results
08/09/24 15:05
08/10/24 07:11
Calcium 9.4 mg/dl (8.4-10.2) 08/10/24 07:11
Phosphorus 3.5 mg/dl (2.5-4.5) 08/07/24 07:48
Magnesium 2.0 mg/dl (1.6-2.3) 08/10/24 07:11
Total Bilirubin 1.2 mg/dl (0.2-1.3) 08/05/24 19:39
AST 37 U/L (14-36) H 08/05/24 19:39
ALT 21 U/L (0-35) 08/05/24 19:39
Alkaline Phosphatase 76 U/L (38-126) 08/05/24 19:39
Total Protein 7.3 g/dl (6.3-8.2) 08/05/24 19:39
Albumin 4.8 g/dl (3.5-5.0) 08/05/24 19:39
Physical Exam
-
GENERAL/NEURO: Awake, Alert, no distress
CHEST: Unlabored breathing on RA
ABDOMEN: Soft, Non-Tender, minimal distention without tympany
--- NOTE | 2024-08-10 11:05 | CM ---
Reviewed the chart notes and spoke with the patient and spouse at the bedside. IMM reviewed and copy left with the patient. Patient anticipates being discharged to home today. The patient's spouse will provide transportation. CM continues to be
available to patient/family and is monitoring medical plan for needs at discharge.
Plan: Discharge to home today with no anticipated needs.
--- NOTE | 2024-08-10 11:23 | W.PN.HOSP.TC ---
Today's Communication/Plan
-
Discharge
Assessment / Plan
Assessment / Plan
84 year old female with a past medical history of hypertension, hx of bowel resection with recurrent bowel dysfunction who presented to the ED for vomiting, nausea, diarrhea and abdominal pain.
CVS: S1-S2 normal
Chest: CTA B/L
Abdomen: Soft, NT , Bowel sounds appreciated
Extremities: No edema
Abdomen X ray reviewed by me. Looks better.
CT A/P: Imaging for bowel pathology is limited by the lack of enteric contrast.There is small bowel obstruction with fluid-filled loops of small bowel measuring up to 3.5 cm.In the absence of enteric contrast, and not able to definitively determine
the site of obstruction. Suspected area of obstruction is left upper pelvis anteriorly in an area where multiple surgical clips are present.
Secondary to the NG tube she had some bloodstained sputum which is getting better. Hemoglobin is stable
# Partial small bowel obstruction
History of exploratory laparotomy with lysis adhesions and small bowel resection in 2017
Conservative management
Tolerated low residue diet
# Hypokalemia-replaced
# Mild hyponatremia resolved
# mildly elevated lactic acid-not significant
# Atrial nbaikbjuxymf-rpmnfhmlbk-wpeuqnqyl in 2017 spontaneously converted to sinus rhythm. Follows up with Dr. Munoz. Does not seem to be on anticoagulation or rate control agents . Not sure if due to low burden or one time event post op only.
Son states that she has seen retail inventory control clerk and no further recommendations from him at that time. She sees him yearly.
# Hypertension-amlodipine 2.5 g daily at home-resume
# History of ovarian cancer status post open JOAO and BSO with adjuvant radiation
# Osteopenia/osteoporosis
# Under weight
# Ex-smoker
# DVT prophylaxis-subcutaneous Lovenox
# Full code
D/W at bed side
More than 30 minutes spent in discharge including
Final examination of the patient
Summarizing hospital stay
Instructions for continuing care to all relevant caregivers
Preparation of discharge records, prescriptions, and referral forms
Total time spent (in minutes): 33 min
Anticipated Discharge: Today
Subjective/Interval History
-
Date of Service: August 10, 2024
Objective Data
-
Labs:
Laboratory Results
08/10/24
07:11
Sodium 137
Potassium 4.5 D
Chloride 105
Carbon Dioxide 20 L
BUN 14
Creatinine 0.6
Glucose 86
Calcium 9.4
Vital Signs:
Vital Signs
Temp Pulse Resp BP Pulse Ox
97.5 F 63 16 142/79 99
08/10/24 07:25 08/10/24 08:00 08/10/24 07:25 08/10/24 08:00 08/10/24 07:25
I&O
08/09/24 08/10/24 08/11/24
06:59 06:59 06:59
Intake Total 2530 / 2530 1445 / 1445
Balance 2530 / 2530 1445 / 1445
--- NOTE | 2024-08-10 11:36 | W.DS.TRANS ---
Addendum entered and electronically signed by Julia Gutierrez MD 08/10/24 14:36:
Dictation- [id number]
Original Note:
DC Summary - Cafeteria Manager
-
Discharge Instructions:
Discharge Diagnosis/Procedures Partial small bowel obstruction, low potassium,
atrial fibrillation, hypertension, history of
ovarian cancer
Diet Low Fiber
Additional Diets low residue diet indefinitely
Activity As tolerated
Driving Restrictions As prior to admission
Instructions: Low Fiber Diet
Stand-Alone Forms:
Changes to Home Medications: No
Discharge Medications:
DC Medications w/original date entered in [facility]
coenzyme Q10 100 mg capsule (CoQ-10) 100 mg PO DAILYPRN PRN supplement 08/05/24
amlodipine 2.5 mg tablet 2.5 mg PO DAILY Blood pressure #0 tabs 08/10/24
calcium carbonate (Calcium 600) 600 mg PO DAILY Supplement #0 tabs 08/10/24
cholecalciferol (vitamin D3) 50 mcg (2,000 unit) tablet (Vitamin D3) 50 mcg PO DAILY Supplement #0 tabs 08/10/24
polyethylene glycol 3350 17 gram oral powder packet (Miralax) 17 g PO DAILY Gastrointestinal issue #0 ea 08/10/24
therapeutic multivitamin 1 tab PO DAILY Supplement #0 tabs 08/10/24
Home Medication Changes
stop metamucil
Pending Results: No
[2024-08-10 12:53] VITALS: BP 112/69
== END 2024-08-10 13:05 | disposition home or self-care (01) | DRG 390 ==
LOC: 2 NORTH 22:23
PROVIDERS: Clinical Nurse Specialist Family Health; Emergency Medicine; Nurse Practitioner Family; Registered Nurse; ADMITTING PHYSICIAN Internal Medicine; ATTENDING PHYSICIAN Hospitalist; EMERGENCY PHYSICIAN Emergency Medicine; FAMILY PHYSICIAN Family Medicine; OTHER PHYSICIAN Surgery
DX: K56.600 Partial intestinal obstruction, unspecified as to cause (principal); I10 Essential (primary) hypertension; E87.6 Hypokalemia; E78.00 Pure hypercholesterolemia, unspecified; I48.91 Unspecified atrial fibrillation; Z79.899 Other long term (current) drug therapy; Z87.19 Personal history of other diseases of the digestive system; Z90.49 Acquired absence of other specified parts of digestive tract; Z85.43 Personal history of malignant neoplasm of ovary; Z87.891 Personal history of nicotine dependence; Z90.710 Acquired absence of both cervix and uterus; Z88.0 Allergy status to penicillin; Z88.8 Allergy status to other drugs, medicaments and biological substances; Z91.040 Latex allergy status
CPT/HCPCS: 43752; 71045; 74019; 74177; 74250; 80048; 80053; 83605; 83690; 83735; 84100; 85014; 85018; 85025; 85027; 87070; 96361; 96374; 96375; 96376; 99285; Q9967

== ENCOUNTER 2024-12-10 16:26 | Inpatient (IN) | payer OTHER, SELFPAY ==
[2024-12-10] VITALS (10 sets, daily range): BP systolic 68–130; BP diastolic 39–72; BMI 16.5
[2024-12-10] MEDS: ZOFRAN 4 MG IV ×2 (14:50→19:17)
--- NOTE | 2024-12-10 14:56 | ED.GENMED ---
History of Present Illness
<Thuy Francis PA-C - Last Filed: 12/10/24 16:23>
General
Chief Complaint: Abdominal Symptoms
Source: patient, family and ambulance crew
Exam Limitations: altered mental status
Time Seen by Provider: 12/10/24 14:04
History of Present Illness
History of Present Illness:
84yoF with a history of hypertension, atrial fibrillation, and prior bowel obstruction presenting via EMS for evaluation of altered mental status. Majority of history is provided by family members at bedside. Patient was hospitalized in July
2023 for a small bowel obstruction. She has been very focused on her diet since then. Daughter reports a decline over the past several weeks to months. Patient is intermittently disoriented and off topic during conversation. went to an
appointment this afternoon. He returned home at 12:30 PM and was gone for less than an hour. Upon his return, patient was noted to be 'out of it.' She reported feeling very dizzy like she was about to pass out. She also was belching and had
vomiting. states that she drank 6 bottles of water in the time that he was gone. Of note, patient did call her daughter 4 days ago stating that she did not feel well and was very tired. Patient states that she does not feel well although
is unable to provide any additional details.
Past History
<Thuy Francis PA-C - Last Filed: 12/10/24 16:23>
Past History
ED Past Medical History: Cancer (ovarian), HTN, Hypercholesterolemia, Valvular disease (Mild tricuspid regurgitation) and Other (valve disorder)
ED Past Surgical History: Bowel resection (Small bowel resection for small bowel obstruction January 2017) and Other (Hysterectomy for ovarian CA, bilateral caataract surgery, sinus surgery, left inguinal hernia repair April 2018)
Social History
Tobacco: Former smoker
Alcohol: None
Drug: None
Personal:
Living: with family
Employment: Retired
Family History
Family History: Hypertension
Phy Exam
<Thuy Francis PA-C - Last Filed: 12/10/24 16:23>
General Physical Exam
General Presentation: other (Ill appearing, confused)
General Skin: warm and dry
General Habitus: elderly
General Mental: alert
ENT Exam
ENT Exam: normocephalic
Cardiovascular Exam
Cardiovascular Exam: regular rate/rhythm
Pulmonary Exam
Pulmonary Exam: lungs clear, no respiratory distress, no rales, no crackles and no rhonchi
Gastrointestinal Exam
Gastrointestinal Exam: non tender, soft and non distended
Neurological Exam
Neurological Exam: other (Answers basic questions but slow to respond. Oriented to person but not oriented to place or time. Unable to provide a history of present illness. Moves all extremities upon command with repeated coaching.)
[place] Coma Scale
Eye Opening: Spontaneous
Verbal Response: Confused
Motor Response: Obeys Commands
GCS Total Score: 14
Skin Exam
Skin Exam: normal color and warm/dry
Course
<Thuy Francis PA-C - Last Filed: 12/10/24 16:23>
Orders/Labs/Results
Orders:
Orders
12/10/24 14:04
Electrocardiogram (*1) Urgent
Reason for Study: Abdominal Pain
EKG- Treatment ONCE
IV Insert/Care/Rem.- Treatment PRN
Straight cath- Treatment ONCE
12/10/24 14:15
CT Head W/o Iv Contrast Urgent
Comment:
Reason For Exam: AMS
12/10/24 14:16
Complete Blood Count/With Diff Urgent
Comprehensive Metabolic Panel Urgent
Lipase Urgent
Magnesium Urgent
Comment: ADD ON
Urinalysis Reflex To Culture Urgent
Date Specimen was Collected: 12/10/24
Time Specimen was Collected: 14:04
12/10/24 14:26
Add On- LAB Urgent
Tests Added?: magnesium
12/10/24 14:27
COVID-19 Antigen Urgent
Source: Nasal Swab
Free T4 Urgent
Lactate Level [Lactic Acid] Urgent
TSH Reflex To Free T4 Urgent
Troponin I Urgent
Influenza A+B Rapid Molecular Urgent
JENNA Source: Nasal Swab
Specimen Description:
12/10/24 14:40
Ondansetron Injectable [Zofran] 4 mg .ROUTE .STK-MED ONE
Ondansetron Injectable [Zofran] 4 mg IV NOW STA
12/10/24 14:52
Restraints - Non Violent As Directed
Justification-Patient:: 1-Attempts to remove tube
Restraint Type-: Soft Limb-L&R Wrist/4rail
Apply From (date): 12/10/24
Apply from (time): 14:52
Remove (date): 12/11/24
Remove (time): 23:59
12/10/24 14:55
CR Chest Portable - 1 View Urgent
Comment:
Reason For Exam: AMS
Reason Study Needs to be Portable: Unable to Transport
12/10/24 15:01
Electrocardiogram (*1) Urgent
Reason for Study: TIA/Stroke
EKG- Treatment ONCE
12/10/24 15:04
Lorazepam [Ativan] 0.5 mg IV NOW STA
12/10/24 15:21
Haloperidol Lactate [Haldol] 3 mg IM NOW STA
12/10/24 15:33
NEPHROLOGY CONSULT Urgent
Consulting Provider: Brett Hassan
Was physician already notified: Yes
12/10/24 15:45
3% Sodium Chloride 100 ml [Sodium Chloride 3%] 100 ml IV ONCE
12/10/24 15:59
3% Sodium Chloride 50 ml [Sodium Chloride 3%] 50 ml IV ONCE
12/10/24 16:02
Admit/Transfer Patient As Directed
Co-Sign Provider:
Level of Care: Inpatient admission
Assign to:: ICU
Physician / Group: louise
Diagnosis: hyponatremia
Reason for Hospitalization: hyponatremia
Expected length of stay greater than two midnights?: Yes
ELOS- Estimated Length of Stay in days: 2
I certify the patient meets the requirements for IP care: Yes
PRN Pain Medication Management As Directed
May give lesser potent ordered pain med per pt: Yes
preference::
Protocol:: Medication orders for pain may be administered in a
manner that supports deferring to patient preference
when the pt is:
- Requesting an ordered lesser potent pain medication.
Least to most potent pain medications are defined
as: acetaminophen < NSAID < tramadol < opioids
(morphine, oxycodone, hydromorphone).
- Requesting a lesser dose of the same medication IF
ORDERED.
- Requesting a less intrusive route of administration
if both routes are prescribed by the provider (PO <
IV).
12/10/24 16:03
Code Status As Directed
Resuscitation Status: Full Code
12/10/24 16:11
Urine Osmolality Random [Osmolality, Random Urine] Urgent
Urine Sodium Urgent
12/10/24 18:00
BMP [Basic Metabolic Panel] Routine
Abnormal Lab Results
12/10/24 12/10/24
14:16 14:27
WBC 4.7 L 10^3/uL
(4.8-10.8)
RBC 3.50 L 10^6/uL
(4.20-5.40)
Hgb 11.1 L g/dL
(12.0-16.0)
Hct 31.2 L %
(37.0-47.0)
MCH 31.7 H pg
(27.0-31.0)
Sodium 108 L* mmol/L
(135-145)
Chloride 80 L mmol/L
(98-107)
Carbon Dioxide 17 L mmol/L
(22-30)
Creatinine 0.4 L mg/dL
(0.6-1.0)
Glucose 114 H mg/dl
(70-99)
Calcium 8.0 L mg/dl
(8.4-10.2)
AST 46 H U/L
(14-36)
Total Protein 6.2 L g/dl
(6.3-8.2)
TSH (Reflex) 9.94 H uIU/ml
(0.47-4.68)
12/10/24 14:16
Vital Signs
Initial and Last Documented VS:
Initial Vital Signs
Pulse Resp BP Pulse Ox
72 15 130/65 97
12/10/24 14:12 12/10/24 14:12 12/10/24 14:12 12/10/24 14:12
Last Documented Vital Signs
Pulse Resp BP Pulse Ox
74 21 130/65 99
12/10/24 15:15 12/10/24 15:15 12/10/24 14:12 12/10/24 14:30
Amnalt;Perfecto Alvares, DO - Last Filed: 12/10/24 15:05>
Orders/Labs/Results
Orders:
Orders
12/10/24 14:04
Electrocardiogram (*1) Urgent
Reason for Study: Abdominal Pain
EKG- Treatment ONCE
IV Insert/Care/Rem.- Treatment PRN
Straight cath- Treatment ONCE
12/10/24 14:15
CT Head W/o Iv Contrast Urgent
Comment:
Reason For Exam: AMS
12/10/24 14:16
Complete Blood Count/With Diff Urgent
Comprehensive Metabolic Panel Urgent
Lipase Urgent
Magnesium Urgent
Comment: ADD ON
Urinalysis Reflex To Culture Urgent
Date Specimen was Collected: 12/10/24
Time Specimen was Collected: 14:04
12/10/24 14:26
Add On- LAB Urgent
Tests Added?: magnesium
12/10/24 14:27
COVID-19 Antigen Urgent
Source: Nasal Swab
Free T4 Urgent
Lactate Level [Lactic Acid] Urgent
TSH Reflex To Free T4 Urgent
Troponin I Urgent
Influenza A+B Rapid Molecular Urgent
JENNA Source: Nasal Swab
Specimen Description:
12/10/24 14:40
Ondansetron Injectable [Zofran] 4 mg .ROUTE .STK-MED ONE
Ondansetron Injectable [Zofran] 4 mg IV NOW STA
12/10/24 14:52
Restraints - Non Violent As Directed
Justification-Patient:: 1-Attempts to remove tube
Restraint Type-: Soft Limb-L&R Wrist/4rail
Apply From (date): 12/10/24
Apply from (time): 14:52
Remove (date): 12/11/24
Remove (time): 23:59
12/10/24 14:55
CR Chest Portable - 1 View Urgent
Comment:
Reason For Exam: AMS
Reason Study Needs to be Portable: Unable to Transport
12/10/24 15:01
Electrocardiogram (*1) Urgent
Reason for Study: TIA/Stroke
EKG- Treatment ONCE
12/10/24 15:04
Lorazepam [Ativan] 0.5 mg IV NOW STA
12/10/24 15:21
Haloperidol Lactate [Haldol] 3 mg IM NOW STA
12/10/24 15:33
NEPHROLOGY CONSULT Urgent
Consulting Provider: Brett Hassan
Was physician already notified: Yes
12/10/24 15:45
3% Sodium Chloride 100 ml [Sodium Chloride 3%] 100 ml IV ONCE
12/10/24 15:59
3% Sodium Chloride 50 ml [Sodium Chloride 3%] 50 ml IV ONCE
12/10/24 16:02
Admit/Transfer Patient As Directed
Co-Sign Provider:
Level of Care: Inpatient admission
Assign to:: ICU
Physician / Group: louise
Diagnosis: hyponatremia
Reason for Hospitalization: hyponatremia
Expected length of stay greater than two midnights?: Yes
ELOS- Estimated Length of Stay in days: 2
I certify the patient meets the requirements for IP care: Yes
PRN Pain Medication Management As Directed
May give lesser potent ordered pain med per pt: Yes
preference::
Protocol:: Medication orders for pain may be administered in a
manner that supports deferring to patient preference
when the pt is:
- Requesting an ordered lesser potent pain medication.
Least to most potent pain medications are defined
as: acetaminophen < NSAID < tramadol < opioids
(morphine, oxycodone, hydromorphone).
- Requesting a lesser dose of the same medication IF
ORDERED.
- Requesting a less intrusive route of administration
if both routes are prescribed by the provider (PO <
IV).
12/10/24 16:03
Code Status As Directed
Resuscitation Status: Full Code
12/10/24 16:11
Urine Osmolality Random [Osmolality, Random Urine] Urgent
Urine Sodium Urgent
12/10/24 18:00
BMP [Basic Metabolic Panel] Routine
Abnormal Lab Results
12/10/24 12/10/24
14:16 14:27
WBC 4.7 L 10^3/uL
(4.8-10.8)
RBC 3.50 L 10^6/uL
(4.20-5.40)
Hgb 11.1 L g/dL
(12.0-16.0)
Hct 31.2 L %
(37.0-47.0)
MCH 31.7 H pg
(27.0-31.0)
Sodium 108 L* mmol/L
(135-145)
Chloride 80 L mmol/L
(98-107)
Carbon Dioxide 17 L mmol/L
(22-30)
Creatinine 0.4 L mg/dL
(0.6-1.0)
Glucose 114 H mg/dl
(70-99)
Calcium 8.0 L mg/dl
(8.4-10.2)
AST 46 H U/L
(14-36)
Total Protein 6.2 L g/dl
(6.3-8.2)
TSH (Reflex) 9.94 H uIU/ml
(0.47-4.68)
12/10/24 14:16
Vital Signs
Initial and Last Documented VS:
Initial Vital Signs
Pulse Resp BP Pulse Ox
72 15 130/65 97
12/10/24 14:12 12/10/24 14:12 12/10/24 14:12 12/10/24 14:12
Last Documented Vital Signs
Pulse Resp BP Pulse Ox
74 21 130/65 99
12/10/24 15:15 12/10/24 15:15 12/10/24 14:12 12/10/24 14:30
Amnalt;Thuy Francis PA-C - Last Filed: 12/10/24 16:23>
MDM/Problems Addressed
Differential Diagnosis Includes:
84yoF here with AMS. came home from an appt this afternoon and patient was 'out of it.' She was c/o dizziness and had several episodes of vomiting. She also reportedly drank several bottles of water in a short period of time. Rectal temp
95.7 on arrival. Remainder of vitals stable. She is encephalopathic and is only oriented to person. She is able to follow commands but is slow to respond and needs to be redirected several times. Differential diagnosis includes but is not limited
to: CVA, electrolyte abnormality, dehydration, arrhythmia
Initial ED plan: Check cardiac labs, lactate, magnesium, and EKG. order entry clerk called to expedite head CT. Will place on Mary Hugger for hypothermia.
<Thuy Francis PA-C - Last Filed: 12/10/24 16:23>
*EKG
Interpreted by ED Provider?: Yes
EKG Intrepretation Date: 12/10/24
Heart Rate: 73
Rate: normal
Rhythm: sinus
[place]: normal axis
Interval: normal interval
QRS Pattern: normal QRS
Ischemia: non-specific ST changes
*Critical Care Note
Total Time (30-74mins, 75-104mins- exclusive of procedures): 45
<Thuy Francis PA-C - Last Filed: 12/10/24 16:23>
Update Note
Update Note:
CT head is negative for acute findings. Sodium critically low at 108 which is likely the culprit of patient's encephalopathy. Mental status declined throughout ED stay and patient is now unable to answer questions and appears to be hallucinating.
Attending discussed case with nephrology. Hypertonic saline ordered given acute alteration in mental status. Patient admitted for further management. Daughter and updated at bedside.
ED Attending Note
<Thuy Francis PA-C - Last Filed: 12/10/24 16:23>
-
Portions of this chart may have been created with voice recognition software.� Occasional wrong word or��sound alike� substitutions may have occurred due to the inherent limitations of voice recognition software.
<Perfecto Alvares DO - Last Filed: 12/10/24 15:05>
ED Attending Note
Patient seen and examined by attending physician: Yes
I performed the substantive portion of visit, reviewed & personally made and approve the management plan that is documented in note by myself or MADINA.: Yes
ED Attending Note:
Seen with PA examined independently 84-year-old female presents acutely nauseous with some confusion talking about her brother, apparently happened about 3 hours ago she became thirsty drank multiple bottles of water and vomited--she is hard of
hearing agitated follow simple commands, hypothermic, CT noted report pending metabolic workup pending including sodium
Discharge Plan
Departure
Patient Disposition: Admit
Date of Disposition: 12/10/24
Time of Disposition: 15:37
Presentation/result/management discussed w/ accepting MD/DO: Hospitalist
Discharge Problem:
Acute hyponatremia, Altered mental status
Prescriptions:
No Action
coenzyme Q10 [CoQ-10] 100 mg Capsule
100 mg PO DAILYPRN PRN (Reason: supplement)
polyethylene glycol 3350 [Miralax] 17 gram Powder In Packet
17 g PO DAILY Qty: 0 0RF
therapeutic multivitamin Tablet
1 tab PO DAILY Qty: 0 0RF
amlodipine 2.5 mg Tablet
2.5 mg PO DAILY Qty: 0 0RF
calcium carbonate [Calcium 600] 600 mg calcium (1,500 mg) Tablet
600 mg PO DAILY Qty: 0 0RF
cholecalciferol (vitamin D3) [Vitamin D3] 50 mcg (2,000 unit) Tablet
50 mcg PO DAILY Qty: 0 0RF
Interventions
Interventions:
*Risk Screen - Suicide Last Done: 12/10/24 14:12
*General Assessment Last Done: 12/10/24 14:12
*Neglect/Abuse Screening Last Done: 12/10/24 14:12
ED- Fall Risk Assessment Last Done: 12/10/24 14:58
*ED COVID-19 Vaccine History Last Done: 12/10/24 14:12
QP-Njsxxn-Zwefuhvzys Assessment Last Done: 12/10/24 14:58
Discharge Date and Time
Print Language: LATVIAN
[2024-12-10 14:59] LABS: % Basophils 1.9 % (0-2); % Eosinophils 1.5 % (0-6); % Immature Granulocytes 0.2 % (0-0.5); % Lymphocytes 29.1 % (20.5-51.1); % Monocytes 8.1 % (1.7-9.3); % Neutrophils 59.2 % (42.2-75.2); Absolute Basophils 0.1 10^3/uL (0-0.2); Absolute Eosinophils 0.1 10^3/uL (0-0.7); Absolute Lymphocytes 1.4 10^3/uL (1.2-3.4); Absolute Monocytes 0.4 10^3/uL (0.1-0.6); Absolute Neutrophils 2.8 10^3/uL (1.4-6.5); Hematocrit 31.2 % (37.0-47.0); Hemoglobin 11.1 g/dL (12.0-16.0); Mean Corp Hgb Conc. 35.6 g/dL (33.0-37.0); Mean Corpuscular Hgb 31.7 pg (27.0-31.0); Mean Corpuscular Volume 89.1 fL (81.0-99.0); Nucleated Red Blood Cells % 0 %; Platelet Count 220 10^3/uL (130-400); White Blood Cell Count 4.7 10^3/uL (4.8-10.8)
[2024-12-10 15:04] LABS: COVID-19 Antigen Negative (Negative)
[2024-12-10] MEDS: ATIVAN 0.5 MG IV (15:07)
[2024-12-10 15:10] LABS: Lactic Acid 1.9 mmol/L (0.7-2.0)
[2024-12-10 15:23] LABS: Troponin I < 0.012 ng/ml
[2024-12-10 15:24] LABS: ALT (SGPT) 24 U/L (0-35); AST (SGOT) 46 U/L (14-36); Albumin 3.9 g/dl (3.5-5.0); Alkaline Phosphatase 63 U/L (38-126); Blood Urea Nitrogen 8 mg/dl (7-17); Carbon Dioxide 17 mmol/L (22-30); Chloride 80 mmol/L (98-107); Estimated Creatinine Clearance 45 ml/min; Glucose 114 mg/dl (70-99); Magnesium 1.6 mg/dl (1.6-2.3); Potassium 3.8 mmol/L (3.5-5.1); Sodium 108 mmol/L (135-145); Total Protein 6.2 g/dl (6.3-8.2); eGFR > 60.00
[2024-12-10 15:41] LABS: TSH Reflex To Free T4 9.94 uIU/ml (0.47-4.68)
[2024-12-10 15:51] LABS: Lipase 199 U/L (23-300)
[2024-12-10 16:03] LABS: Urine Albumin Negative (Neg - Trace); Urine Bilirubin Negative (Negative); Urine Character Clear (Clear); Urine Color Yellow; Urine Glucose Negative (Negative); Urine Ketone Negative (Negative); Urine Leukocyte Negative (Negative); Urine Nitrite Negative (Negative); Urine Occult Blood Negative (Negative); Urine Urobilinogen Negative (Neg - 1+)
[2024-12-10 16:08] LABS: Free T4 1.53 ng/dl (0.78-2.19)
--- NOTE | 2024-12-10 16:08 | HPS.HSE ---
Addendum entered and electronically signed by Soniya Flores MD 12/10/24 19:26:
Patient hypothermic requiring bearhugger. Flu and COVID negative. Check blood cultures. Fluid restriction 48 ounces.
Original Note:
Family Physician
-
Family Physician: Sandra Kerr
Chief Complaint
-
altered mental status
History of Present Illness
84-year-old female past medical history of partial small bowel obstruction, paroxysmal atrial fibrillation, hypertension, ovarian cancer, presenting with acute change in mental status starting an hour prior to arrival associate with nausea and
vomiting. She reportedly drank 7 12 ounce water bottles in the past hour. Patient was last normal last night and although she was telling some odd stories she was alert and making sense.
Patient normally drinks 48 ounces of fluids per day. She had not been drinking more than that recently. She had been on a pur�ed diet since her recent small bowel obstruction and eating less. She is also been having progressive swallowing
dysfunction.
She had been having diarrhea for the past few days. No fevers or chills. No upper respiratory symptoms. No cough or shortness of breath or chest pain.
Medical History
Past Medical History
Past Medical History: Reports Other (partial small bowel obstruction, paroxysmal atrial fibrillation, hypertension, ovarian cancer,)
Past Surgical History: Reports Tonsilectomy and Other (Bowel resection (Small bowel resection for small bowel obstruction January 2017) and Other (Hysterectomy for ovarian CA, bilateral caataract surgery, sinus surgery, left inguinal hernia repair
April 2018))
Social History
Tobacco: Former Smoker
Alcohol: None
Drug: None
Family History
Family History: Not pertinent
Allergies / Home Medications
Allergies reflects when Allergies were last updated in [facility] [facility].
Home Medications with original date entered in [facility] [facility]
Allergy/Medication List:
Allergies
Allergy/AdvReac Type Severity Reaction Status Date / Time
Arnica (Arnica [place]) Allergy severe Verified 08/05/24 19:12
hypertension
barium sulfate Allergy Unknown Verified 08/05/24 19:12
latex Allergy Unknown Verified 08/05/24 19:12
Penicillins Allergy Rash Verified 08/05/24 19:12
Home Medications
coenzyme Q10 100 mg capsule (CoQ-10) 100 mg PO DAILYPRN PRN supplement 08/05/24
amlodipine 2.5 mg tablet 2.5 mg PO DAILY Blood pressure #0 tabs 08/10/24
calcium carbonate (Calcium 600) 600 mg PO DAILY Supplement #0 tabs 08/10/24
cholecalciferol (vitamin D3) 50 mcg (2,000 unit) tablet (Vitamin D3) 50 mcg PO DAILY Supplement #0 tabs 08/10/24
polyethylene glycol 3350 17 gram oral powder packet (Miralax) 17 g PO DAILY Gastrointestinal issue #0 ea 08/10/24
therapeutic multivitamin 1 tab PO DAILY Supplement #0 tabs 08/10/24
Review of Systems
-
History Source: Patient
A 12 point ROS was completed and negative except as noted: Yes
Constitutional: Reports No Symptoms
EENT: Reports No Symptoms
Respiratory: Reports No Symptoms
Cardiac: Reports No Symptoms
Abdomen/GI: Reports No Symptoms
: Reports No Symptoms
Musculoskeletal: Reports No Symptoms
Skin: Reports No Symptoms
Neurological: Reports No Symptoms
Endocrine: Reports No Symptoms
Hematologic/Lymphatic: Reports No Symptoms
Psych: Reports No Symptoms
Physical Exam
Vital Signs
Vital Signs
Pulse Resp BP Pulse Ox
74 21 130/65 99
12/10/24 15:15 12/10/24 15:15 12/10/24 14:12 12/10/24 14:30
Physical Exam
General: Well Developed, Well Nourished and No Apparent Distress
HEENT: NormoCephalic, Moist mucous membranes and Atraumatic
Respiratory: Clear
Cardiac: S1/S2 and Regular Rhythm; No Murmur or Rub
GI: Soft, Non Tender, Non Distended and Normal Bowel Sounds; No Organomegaly
Rectal: Deferred by Provider
Musculoskeletal: No Clubbing, No Cyanosis and No Edema
Skin: No Rash
Neuro: Nonfocal/grossly intact
Laboratory Results
-
12/10/24 14:16
Laboratory Results
Lactic Acid 1.9 mmol/L (0.7-2.0) 12/10/24 14:27
Total Bilirubin 1.0 mg/dl (0.2-1.3) 12/10/24 14:16
AST 46 U/L (14-36) H 12/10/24 14:16
ALT 24 U/L (0-35) 12/10/24 14:16
Alkaline Phosphatase 63 U/L (38-126) 12/10/24 14:16
Troponin I < 0.012 ng/ml 12/10/24 14:27
Lipase 199 U/L (23-300) 12/10/24 14:16
Data Reviewed
-
Lab Data: Labs Reviewed by me
Old Records: Reviewed
Impression/Plan
-
IMPRESSION:
PLAN:
# Acute metabolic encephalopathy secondary to severe acute hyponatremia secondary to polydipsia
-Sodium of 108
-Check urine sodium, osmolality
-3% hypertonic 50 cc bolus to be given, recheck BMP in 2 hours
-Nephrology consulted
#Diarrhea possible gastroenteritis
-monitor
History of partial small bowel obstruction
Paroxysmal atrial fibrillation
-Not on anticoagulation
Essential hypertension
-Continue amlodipine
Ovarian cancer
Full code
DVT prophylaxis�heparin
Pur�ed diet
--- NOTE | 2024-12-10 16:32 | W.CON.NEPH ---
Consultation
-
Date/Time Consultation Requested: DonnaShelli 2024 4:05 PM
Date/Time Consultation Performed: December 10, 2024 at 4:30 PM
Requesting Provider: Dr. Alvares
Performing Provider: Dr. Brett Hassan
Reason for Consultation: hyponatremia
Medical History
-
Chief Complaint: hyponatremia
History of Present Illness:
84-year-old female past medical history of partial small bowel obstruction, paroxysmal atrial fibrillation, hypertension, ovarian cancer, presenting with acute change in mental status starting an hour prior to arrival associate with nausea and
vomiting. Prior to coming to the hospital she drank about seven glasses of water because she wasn't feeling well but has not been drinking excessive water over last few weeks. In fact she's been eating very little and drinking very little overall.
Her daughter was at the bedside who provided history states that since her bowel obstruction she's very cautious about what she eats eating and eating small quantities. With that she is been slowly deteriorating and presents here with hyponatremia
of 108 with minimal responsiveness 20 verbal stimuli. Also hypothermic at 95.7
Past Medical History
partial small bowel obstruction, paroxysmal atrial fibrillation, hypertension, ovarian cancer,
Social History
Tobacco: Non-Smoker
Alcohol: None
Drug: None
Family History
Family History: Not Pertinent
Allergies / Home Medications
Allergy/AdvReac Type Severity Reaction Status Date / Time
Arnica (Arnica [place]) Allergy severe Verified 08/05/24 19:12
hypertension
barium sulfate Allergy Unknown Verified 08/05/24 19:12
latex Allergy Unknown Verified 08/05/24 19:12
Penicillins Allergy Rash Verified 08/05/24 19:12
�Medication �Instructions �Recorded �Confirmed �Type
coenzyme Q10 100 mg capsule 100 mg PO DAILYPRN PRN supplement 08/05/24 12/10/24 History
(CoQ-10)
amlodipine 2.5 mg tablet 2.5 mg PO DAILY Blood pressure #0 08/10/24 12/10/24 Rx
tabs
calcium carbonate (Calcium 600) 600 mg PO DAILY Supplement #0 tabs 08/10/24 12/10/24 Rx
cholecalciferol (vitamin D3) 50 50 mcg PO DAILY Supplement #0 tabs 08/10/24 12/10/24 Rx
mcg (2,000 unit) tablet (Vitamin
D3)
polyethylene glycol 3350 17 gram 17 g PO DAILY Gastrointestinal 08/10/24 12/10/24 Rx
oral powder packet (Miralax) issue #0 ea
therapeutic multivitamin 1 tab PO DAILY Supplement #0 tabs 08/10/24 12/10/24 Rx
Review of Systems
-
Unable to obtain full review of systems at this time due to: Acuity
Physical Exam
Vital Signs
Vital Signs
Temp Pulse Resp BP Pulse Ox
95.7 F L 74 21 130/65 99
12/10/24 14:20 12/10/24 15:15 12/10/24 15:15 12/10/24 14:12 12/10/24 14:30
Lab Results
WBC 4.7 10^3/uL (4.8-10.8) L 12/10/24 14:16
RBC 3.50 10^6/uL (4.20-5.40) L 12/10/24 14:16
Hgb 11.1 g/dL (12.0-16.0) L 12/10/24 14:16
Hct 31.2 % (37.0-47.0) L 12/10/24 14:16
Plt Count 220 10^3/uL (130-400) 12/10/24 14:16
eGFR > 60.00 12/10/24 14:16
Albumin 3.9 g/dl (3.5-5.0) 12/10/24 14:16
Physical Exam
General no acute distress / cachectic
HEENT no cephalic atraumatic extraocular muscle intact no scleral icterus no JVD neck supple
lungs clear to auscultation bilateral
heart regular S1-S2 positive
abdomen soft nontender positive bowel sounds
extremities no edema pulses present bilateral
Neurologically Responsive to a verbal stimuli minimal responsiveness to tactile stimuli
Skin no lesions no abrasions no petechiae
Psych no bizarre behavior
Data Reviewed
-
Radiology: Image Personally Visualized and interpreted
Labs: Labs Reviewed by me
Critical Care Time (in minutes): 35
Assessment/Plan
-
84-year-old female past medical history of partial small bowel obstruction, paroxysmal atrial fibrillation, hypertension, ovarian cancer, presenting with acute change in mental status starting an hour prior to arrival associate with nausea and
vomiting. Prior to coming to the hospital she drank about seven glasses of water because she wasn't feeling well but has not been drinking excessive water over last few weeks. In fact she's been eating very little and drinking very little overall.
Her daughter was at the bedside who provided history states that since her bowel obstruction she's very cautious about what she eats eating and eating small quantities. With that she is been slowly deteriorating and presents here with hyponatremia
of 108 with minimal responsiveness 20 verbal stimuli. Also hypothermic at 95.7
impression.
Acute hyponatremia of 108.
hypothermia.
altered Mental status.
.
Plan.
As discussed with ER team and admitting hospitalist with presenting altered mental status, will give 50 mL 3% saline bolus recheck a BMP in two hours.
critical-care level admission.
Elevated TSH with a normal Free T4
Avoid overcorrection maximum 4-6 mmol/L in 24 hours
blood cultures.
Garrett catheter placement for critical urine output monitoring.
avoid hypotonic solutions.
Discussed with the family at bedside including her and daughter. All questions were answered.
[2024-12-10] MEDS: SODIUM CHLORIDE 3% 50 IV (17:07)
[2024-12-10 17:29] LABS: Urine Sodium 38 mmol/L (30-90)
[2024-12-10 18:31] LABS: Osmolality Urine 303 mOsm/kg (300-900)
[2024-12-10 18:46] LABS: Urine Sodium 47 mmol/L (30-90)
[2024-12-10 18:53] LABS: Blood Urea Nitrogen 8 mg/dl (7-17); Calcium 7.8 mg/dl (8.4-10.2); Carbon Dioxide 17 mmol/L (22-30); Chloride 82 mmol/L (98-107); Estimated Creatinine Clearance 45 ml/min; Glucose 110 mg/dl (70-99); Potassium 4.1 mmol/L (3.5-5.1); Sodium 110 mmol/L (135-145); eGFR > 60.00
[2024-12-10] MEDS: HEPARIN 5000 UNITS SC (20:49)
--- NOTE | 2024-12-10 21:00 | PTCARENOTE ---
Received pt via transfer from the ED. Pt lethargic but responds to verbal stimuli, does not follow commands and only mutters responses, hypothermic but able to CASTILLO. NSR-Sinus Patrick. 99% on RA with clear lung sounds. Pt vomited on the way from the
ED, zofran was administered. 16 [place] Garrett draining clear yellow urine. Skin CDI. 18G in the left AC. Family at bedside.
[2024-12-10 22:30] LABS: INR 1.16; PT 15.1 Sec (11.4-14.6)
[2024-12-10 22:32] LABS: APTT 69.4 Sec (23.4-35.0)
[2024-12-10] MEDS: SODIUM CHLORIDE 3% 250 IV (22:57)
[2024-12-11] VITALS (40 sets, daily range): BP systolic 86–128; BP diastolic 44–93; BMI 15.0
[2024-12-11] MEDS: ATIVAN 0.5 MG IV (00:56)
[2024-12-11] MEDS: NSS (PRESERVATIVE FREE) 0.25 ML IV (00:57)
--- NOTE | 2024-12-11 01:00 | PTCARENOTE ---
Pt starting to say more coherent words. Still confused and restless. Ativan administered.
[2024-12-11 02:47] LABS: % Eosinophils 0.1 % (0-6); % Immature Granulocytes 0.1 % (0-0.5); % Lymphocytes 11.9 % (20.5-51.1); % Monocytes 6.4 % (1.7-9.3); % Neutrophils 81.5 % (42.2-75.2); Absolute Lymphocytes 0.8 10^3/uL (1.2-3.4); Absolute Monocytes 0.5 10^3/uL (0.1-0.6); Absolute Neutrophils 5.8 10^3/uL (1.4-6.5); Hematocrit 29.2 % (37.0-47.0); Hemoglobin 10.8 g/dL (12.0-16.0); Mean Corpuscular Hgb 31.7 pg (27.0-31.0); Mean Corpuscular Volume 85.6 fL (81.0-99.0); Mean Platelet Volume 9.9 fL (7.4-10.4); Nucleated Red Blood Cells % 0 %; Platelet Count 218 10^3/uL (130-400); Red Blood Cell Count 3.41 10^6/uL (4.20-5.40); Red Cell Dist. Width 12.3 % (11.5-14.5); White Blood Cell Count 7.1 10^3/uL (4.8-10.8)
[2024-12-11 03:08] LABS: Magnesium 1.7 mg/dl (1.6-2.3)
[2024-12-11 03:15] LABS: ALT (SGPT) 26 U/L (0-35); AST (SGOT) 56 U/L (14-36); Albumin 3.5 g/dl (3.5-5.0); Alkaline Phosphatase 57 U/L (38-126); Blood Urea Nitrogen 7 mg/dl (7-17); Carbon Dioxide 20 mmol/L (22-30); Chloride 84 mmol/L (98-107); Estimated Creatinine Clearance 45 ml/min; Glucose 95 mg/dl (70-99); Potassium 4.3 mmol/L (3.5-5.1); Sodium 113 mmol/L (135-145); Total Bilirubin 2.1 mg/dl (0.2-1.3); Total Protein 5.6 g/dl (6.3-8.2); eGFR > 60.00
--- NOTE | 2024-12-11 04:00 | PTCARENOTE ---
All systems reassessed. Labs drawn and hygiene performed.
--- NOTE | 2024-12-11 07:15 | PTCARENOTE ---
Patient received lying in bed, awake and agitated, Trying to climb OOB. She is pleasantly confused and slightly agitated. She has difficulty opening her eyes. Her daughter Genesis is at the bedside. Patient c/o of bilateral shoulder pain when asked if
in pain. Positive pulses x 4 extremities. No LE edema. Garrett catheter patent draining yellow guy urine. BBS clear. S1S2 regular with positive murmur. Bilateral soft wrist restraints checked and retied, checked every 2 hours. SR on CM.
[2024-12-11] MEDS: HEPARIN 5000 UNITS SC (07:30)
--- NOTE | 2024-12-11 08:12 | CON.INTV ---
Consultation
Consultation Request
Date/Time Consultation Requested: 12/10/2024
Date/Time Consultation Performed: 12/10/24
Requesting Provider: Soniya Flores MD
Performing Provider: Natacha Melendez MD
Reason for Consultation: Symptomatic Severe hyponatreami
Medical History
-
History of Present Illness:
The patient is a 84-year-old female with a past medical history of paroxysmal atrial fibrillation, hypertension, ovarian cancer and partial small bowel obstruction. She presented to ER on 12/10/24 after she started to have confusion at home. She
has a prior hospitalization in 07/2024 due to having a partial small bowel obstruction which resolved without any surgery. But the patient has started to focus on her diet more drinking excessive water and eating less for the last few months. Per
daughter, the patient also vomited yesterday and had diarrhea for last few days. At ER admission, she was found minimally responsive and her head CT did not show any acute abnormality. But her sodium level was found at 108 and she was found
hypothermic. She was admitted to the ICU for close monitoring. On 12/11/24 am, per nurse and her daughter, the patient`s mental status improved some and she was able to talk with her daughter telling 'she does not like restraints'. Following, she
was found somnolent in her bed and was not responsive to verbal or physical stimulus but seems comfortable without respiratory distress.
Past Medical History
Past Medical History: Arrhythmias (Afib ), HTN, Hypercholesterolemia and Other (Ovarian cancers/p JOAO and radiation, multiple inguinal hernia surgery due to small bowel obstruction in 2016)
Past Surgical History: Other (Tonsilectomy, Small bowel Resection for small bowel obstruction in January 2017, Hysterectomy for ovarian CA, bilateral cataract surgery, sinus surgery, left inguinal hernia repair April 2018)
Social History
Tobacco: Former Smoker
Alcohol: None
Drug: None
Family History
Family History: Reviewed & Not Pertinent
Allergies / Home Medications
Allergies
Allergy/AdvReac Type Severity Reaction Status Date / Time
Arnica (Arnica [place]) Allergy severe Verified 08/05/24 19:12
hypertension
barium sulfate Allergy Unknown Verified 08/05/24 19:12
latex Allergy Unknown Verified 08/05/24 19:12
Penicillins Allergy Rash Verified 08/05/24 19:12
Home Medications
�Medication �Instructions �Recorded �Confirmed �Last Taken �Type
coenzyme Q10 100 mg capsule 100 mg PO DAILYPRN PRN supplement 08/05/24 12/10/24 12/10/24 History
(CoQ-10)
amlodipine 2.5 mg tablet 2.5 mg PO DAILY Blood pressure #0 08/10/24 12/10/24 12/10/24 Rx
tabs
calcium carbonate (Calcium 600) 600 mg PO DAILY Supplement #0 tabs 08/10/24 12/10/24 12/10/24 Rx
cholecalciferol (vitamin D3) 50 50 mcg PO DAILY Supplement #0 tabs 08/10/24 12/10/24 12/10/24 Rx
mcg (2,000 unit) tablet (Vitamin
D3)
polyethylene glycol 3350 17 gram 17 g PO DAILY Gastrointestinal 08/10/24 12/10/24 Unknown Rx
oral powder packet (Miralax) issue #0 ea
therapeutic multivitamin 1 tab PO DAILY Supplement #0 tabs 08/10/24 12/10/24 12/10/24 Rx
Review of Systems
-
Unable to Obtain full review of systems at this time due to: Other (Patient was seen lethargic this am )
History Source: Family
Vitals / Labs / Diagnostic Testing
Vital Signs
Temp Pulse Resp BP Pulse Ox
97.8 F 72 18 100/52 99
12/11/24 04:00 12/11/24 05:15 12/11/24 05:15 12/11/24 05:08 12/11/24 05:15
Lab Data
12/11/24 02:38
Laboratory Results
12/10/24
22:14
PT 15.1 H
INR 1.16
APTT 69.4 H
Microbiology
12/10/24 14:27 Nasal Swab Influenza Types A & B (KRISTIE) - Final
Negative for Influenza A & B, NAAT
Negative results must be combined with clinical observations
and patient history.
Nucleic Acid Amplification test (NAAT)performed on the
[employer] platform.
Diagnostic Testing:
Physical Exam
-
HEENT: Normocephalic, Anicteric and Other (Cachectic )
Cardiovascular: S1/S2 and Regular Rhythm
Respiratory: Clear
GI: Soft and Non Distended
Neurology: Other (Somnolent )
Skin: Warm and Dry
General: Comfortable, Poor Appetite and Other (cachectic )
Assessment
-
Assessment:
Impression: The patient is a 75-year-old female with a past medical history of A-fib, HTN, ovarian cancer, partial small bowel obstruction who presented to ER on 12/10 with mental status worsening. Patient's daughter reported that her mother was not
eating well and drinking excessive water since her recent hospitalization in [place]. The patient had been hospitalized recently on 08/07/2024 due to partial small bowel obstruction which made her physical status to decline since over last
weeks. The patient's daughter also reported her mother had diarrhea for last few days and she vomited yesterday before she presented to the hospital. At ER admission, the patient was minimally responsive and her sodium level was found at 108.
Also she was found hypothermic at 95.7. 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
Prior Hospitalizations:
Atrial fibrillation
Hypertension
Low potassium
Partial small bowel obstruction
Ovarian cancer
Osteopenia/osteoporosis
Under weight
Problems
-Acute symptomatic hyponatremia with altered mental status
-Hypothermia
-Recent hospitalization for partial small bowel obstruction
-Vomiting and diarrhea
-Shoulder pain
Plan
#Acute symptomatic hyponatremia with altered mental status
-Was given 3% hypertonic IV fluids-stopped with sodium level at 117
-Avoid to exceed 10-12 mEq per/L in the first 24 hours or 18 in 48 hours
-Follow BMP
-Can be started on IV NSS if hypotension develops
-Follow urine output/placed Garrett catheter
-Avoid hypotonic solutions
-Nephrology on board
-Head CT: No acute abnormality
# Possible gastroenteritis
-History of diarrhea for last few days-no current since admission
-Vomiting before admission
-Follow-up
-Blood culture pending
# Hypertension
-On 2.5 mg amlodipine-can be considered to dc
-BP likely stable on the lower side
#Shoulder pain
-Chronic
-Lidocaine patch
Diagnostic Tests:
Head CT 12/10/24: IMPRESSION: There are no focal or acute intracranial abnormalities. There is mild diffuse cortical atrophy
Chest Xray: IMPRESSION: Moderate bilateral lung hyperinflation. Mild biapical lung scarring and pleural thickening. Diffuse bone demineralization.
[2024-12-11 08:30] LABS: Blood Urea Nitrogen 8 mg/dl (7-17); Calcium 7.8 mg/dl (8.4-10.2); Carbon Dioxide 17 mmol/L (22-30); Chloride 90 mmol/L (98-107); Estimated Creatinine Clearance 41 ml/min; Glucose 80 mg/dl (70-99); Potassium 3.9 mmol/L (3.5-5.1); Sodium 117 mmol/L (135-145); eGFR > 60.00
[2024-12-11] MEDS: NORVASC PO (08:49)
[2024-12-11] MEDS: OSCAL CAL 500 PO (08:50)
[2024-12-11] MEDS: THERAGRAN PO (08:50)
[2024-12-11] MEDS: VITAMIN D3 (cholecalciferol) PO (08:50)
[2024-12-11] MEDS: MIRALAX PO (08:50)
--- NOTE | 2024-12-11 08:52 | W.PN.NEPH.PH ---
Today's Communication / Plan
-
serial BMP
Assessment/Plan
-
84-year-old female past medical history of partial small bowel obstruction, paroxysmal atrial fibrillation, hypertension, ovarian cancer, presenting with acute change in mental status starting an hour prior to arrival associate with nausea and
vomiting. Prior to coming to the hospital she drank about seven glasses of water because she wasn't feeling well but has not been drinking excessive water over last few weeks. In fact she's been eating very little and drinking very little overall.
Her daughter was at the bedside who provided history states that since her bowel obstruction she's very cautious about what she eats eating and eating small quantities. With that she is been slowly deteriorating and presents here with hyponatremia
of 108 with minimal responsiveness 20 verbal stimuli. Also hypothermic at 95.7
Impression.
Acute hyponatremia of 108.
hypothermia.
altered Mental status.
Plan.
follow BMP
no additional 3% for now until Na trend returns
will likely benefit from NSS later given relative hypotension
elevated ADH likely from nausea/vomiting, it does not appear that she actually retained all the water she had been drinking
d/w daughter at bedside
critical care time 31 minutes
-
-
Date of Service: December 11, 2024
CC / HPI / ROS
-
Chief Complaint:
hyponatremia
History of Present Illness:
Na up to 117, only received 75ml 3% overnight
lethargic, poorly responsive, restrained
nausea overnight
BP stable
Review of Systems:
nonresponsive
Labs
-
Labs:
WBC 7.1 10^3/uL (4.8-10.8) 12/11/24 02:38
RBC 3.41 10^6/uL (4.20-5.40) L 12/11/24 02:38
Hgb 10.8 g/dL (12.0-16.0) L 12/11/24 02:38
Hct 29.2 % (37.0-47.0) L 12/11/24 02:38
Plt Count 218 10^3/uL (130-400) 12/11/24 02:38
Sodium 117 mmol/L (135-145) L* 12/11/24 07:25
Potassium 3.9 mmol/L (3.5-5.1) 12/11/24 07:25
Chloride 90 mmol/L (98-107) L 12/11/24 07:25
Carbon Dioxide 17 mmol/L (22-30) L 12/11/24 07:25
BUN 8 mg/dl (7-17) 12/11/24 07:25
Creatinine 0.5 mg/dL (0.6-1.0) L 12/11/24 07:25
eGFR > 60.00 12/11/24 07:25
Glucose 80 mg/dl (70-99) 12/11/24 07:25
Calcium 7.8 mg/dl (8.4-10.2) L 12/11/24 07:25
Albumin 3.5 g/dl (3.5-5.0) 12/11/24 02:38
Physical Exam
-
Vital Signs:
Vital Signs
Temp Pulse Resp BP Pulse Ox
98.1 F 72 18 112/54 99
12/11/24 07:45 12/11/24 08:49 12/11/24 05:15 12/11/24 08:49 12/11/24 05:15
Cardiovascular:: Regular rate and rhythm
Respiratory:: Bilateral: Coarse
Lung Excursion:: Normal
Abdomen:: Nontender and Soft
Bowel Sounds:: Normal
Extremity Edema:: +1: Bilateral: (ankle)
--- NOTE | 2024-12-11 11:32 | CM ---
CM following re: discharge planning.
Reviewed pt's chart, met with pt. Pt's spouse and daughter at bedside.
Pt is an 84 year old female, admitted with primary dx of acute metabolic encephalopathy secondary to severe acute hyponatremia secondary to polydipsia.
Per daughter, pt lives with split level house, 3 steps to enter, has 4 supportive children. 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 No DME, VN or SNF history.
PCP: Sandra Kerr
Pharmacy: [facility].
D/C plan: home with anticipated no needs. Family to transport at discharge.
CM will follow with discharge plan updates as hospitalization progresses
[2024-12-11] MEDS: TYLENOL/FEVERALL 650 MG RECTAL (11:39)
--- NOTE | 2024-12-11 11:47 | W.PN.HOSP.TC ---
Today's Communication/Plan
-
see plan
Assessment / Plan
Assessment / Plan
Gen: NAD, NCAT, appears chronically ill and malnourished
Neck: supple.
CV: RRR, +S1/S2, no m/r/g.
Resp: CTAB, no rales, wheezes, or rhonchi.
Abd: +BS, soft, NT, ND
Skin: No rashes.
Neuro: resting but moves facial muscles and upper extremities during physical exam
Psych: calm
Acute metabolic encephalopathy secondary to severe acute hyponatremia secondary to polydipsia:
-Na 108 on admission
-Na now 117 after 3% NS
-trend Na Q4H, would not have Na increase more than 8-10meq/24 hours at this point
-renal following
Other problems:
Diarrhea: possible gastroenteritis, monitor
h/o pSBO
Paroxysmal atrial fibrillation: Not AC
Essential hypertension: cont Norvasc
h/o Ovarian cancer
Severe protein calorie malnutrition
FULL/heparin
Anticipated Discharge: > 48 hours
Subjective/Interval History
-
Date of Service: December 11, 2024
Objective Data
-
Labs:
Laboratory Results
12/11/24 12/11/24 12/11/24
02:38 07:25 11:35
WBC 7.1
Hgb 10.8 L
Hct 29.2 L
Plt Count 218
Sodium 113 L* 117 L* Pending
Potassium 4.3 3.9 Pending
Chloride 84 L 90 L Pending
Carbon Dioxide 20 L 17 L Pending
BUN 7 8 Pending
Creatinine 0.5 L 0.5 L Pending
Glucose 95 80 Pending
Calcium 8.0 L 7.8 L Pending
Total Bilirubin 2.1 H D
AST 56 H
ALT 26
Alkaline Phosphatase 57
Vital Signs:
Vital Signs
Temp Pulse Resp BP Pulse Ox
98.1 F 67 15 100/55 97
12/11/24 07:45 12/11/24 10:00 12/11/24 10:00 12/11/24 10:00 12/11/24 10:00
I&O
12/10/24 12/11/24 12/12/24
06:59 06:59 06:59
Intake Total
Balance
--- NOTE | 2024-12-11 12:00 | PTCARENOTE ---
Patient has been resting comfortably when undisturbed with eyes closed, lying still, respirations non labored, snoring at times. SR on CM. Tylenol NM for pain. BMP drawn at 1130 shows Na 116 (was 117 at 0730). Dr. Burns and Dr. Lin notified. New
orders received for IVF. Remains NPO due to lethargy. When awake, patient is more oriented--oriented to person and place, conversation makes sense. Cooperative. Bilateral soft wrist restraints trialed off. Family at bedside.
[2024-12-11 12:10] LABS: Blood Urea Nitrogen 8 mg/dl (7-17); Calcium 7.3 mg/dl (8.4-10.2); Carbon Dioxide 17 mmol/L (22-30); Chloride 91 mmol/L (98-107); Estimated Creatinine Clearance 41 ml/min; Glucose 71 mg/dl (70-99); Potassium 3.6 mmol/L (3.5-5.1); Sodium 116 mmol/L (135-145); eGFR > 60.00
[2024-12-11] MEDS: D5/0.9% SODIUM CHLORIDE 1000 IV (12:54)
--- NOTE | 2024-12-11 15:15 | PTOTSP ---
Speech Language Pathology
Pt seen for clinical bedside swallow evaluation. At home, pt mostly chooses pureed solids, but eats some regular solids, such as toast and crackers. This was pt choice (not a surgery recommendation) to be cautious after bowel obstructions. She
drinks thin liquids. Pt and family deny any previous swallowing difficulties or PNA.
P.O. trials of puree, regular solids, and thin liquids via cup/straw provided. Adequate mastication, bolus formation, and A-P transit noted with no oral residue. No overt signs of aspiration. Audible swallow noted. Suspect related to esophagus
given report from family that MD stated scope was 'difficult to pass' when she was admitted with bowel obstruction.
Pt eats some regular solids at home and has no oropharyngeal difficulty. Of note, VSE not recommended at this time, but cannot be considered in the future given known allergy to barium sulfate.
Recommend:
(1) Regular solids/thin liquids
(2) General aspiration precautions
(3) Meds as tolerated
(4) AVIONICS SYSTEMS INTEGRATION SPECIALIST to sign off. Please reconsult as indicated.
--- NOTE | 2024-12-11 15:30 | PTCARENOTE ---
Patient is much more awake and alert. Oriented to person, place and time. Hearing aids in bilaterally, brought by from home. Restraints remain off. Cooperative.
--- NOTE | 2024-12-11 16:00 | PTCARENOTE ---
Speech therapist evaluated, passed swallow evaluation. Diet ordered.
--- NOTE | 2024-12-11 16:05 | PN.CDI ---
CDI
- -
CDI:
Physician Documentation Request
Admit Date: 12/10/24 16:26
Dear Doctor Burt,
Patient admitted for hyponatremia.
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 Weight history shows on 08/06/24 the patient weighed 87 lbs. This is a 3.5% BW loss over 4 months (insignificant).'
12/11 Hospitalist PN: 'Severe protein calorie malnutrition'
Diagnosis: Severe protein calorie malnutrition
The diagnosis is documented in the record on 12/11 Hospitalist PN.
There is either a lack of clinical support for this condition in the current medical record, or there is a lack of recognized standard criteria to support the condition.
The request is for one of the following:
- Additional documentation to support the condition. Indicate if this is in lieu of what may be considered standard criteria, and/or support why the standard criteria may not be present for this patient.
- A more appropriate diagnosis, reflecting the patient's condition
- Severe protein calorie malnutrition remains a known or suspected condition for this patient and is further supported by (include additional documentation in the medical record)
- Severe protein calorie malnutrition has been ruled out and a more appropriate diagnosis for this patient's condition is underweight, cachectic, ect.
- Other (please specify)
- Unable to determine
[place] Criteria ([facility] Hospitalist 2017)
2 or more criteria must be present for either
non severe or severe malnutrition
Note that the criteria differs related to the
presence of an acute or chronic illness
Acute Illness Chronic Illness
Energy Intake Non Severe: <75% for >7 days Non Severe: <75% for >1 month
Severe: <50% for >5 days Severe: <75% for >1 month
Weight Loss Non Severe: 1-2% over 1 week Non Severe: 5% over 1 month
5% over 1 month 7.5% over 3 months
7.5% over 3 months 10% over 6 months
1 year N/A 20% over 1 year
Severe: >2% over 1 week Severe: >5% over 1 month
>5% over 1 month >7.5% over 3 months
>7.5% over 3 months >10% over 6 months
1 year N/A >20% over 1 year
Body Fat Non Severe: Mild Decrease Non Severe: Mild Loss
Severe: Moderate Decrease Severe: Severe Loss
Muscle Mass Non Severe: Mild Decrease Non Severe: Mild Loss
Severe: Moderate Decrease Severe: Severe Loss
Fluid Accumulation Non Severe: Mild Accumulation Non Severe: Mild Accumulation
Severe: Moderate to severe Severe: Moderate to severe
accumulation accumulation
Reduced Chief Solution Architect Strength Non Severe: N/A Non Severe: N/A
Severe: Measurably reduced Severe: Measurably reduced
Additional criteria that can be used to Determine if Mild or Moderate Malnutrition (Merck Manual 2018)
Mild Moderate Severe
Albumin gm/dl <3.0 gm/dl <2.5 gm/dl <2.0 gm/dl
Pre Albumin mg/dl <15 gm/dl <10 mg/dl <5.0 mg/dl
BMI <18.5 <17 <16
Use of terms such as suspected, likely, concern for, or probable (associated with a specific diagnosis that is being evaluated, monitored, or treated as if it exists) are acceptable and can be coded in the inpatient setting, when documented at the
time of discharge.
Thank you,
Roxana Raymond RN, BSN
CDI Specialist
Available via [employer] text
Please use your independent medical judgment in providing your response.
--- NOTE | 2024-12-11 18:15 | PTCARENOTE ---
BMP drawn. Na level 117, stable. Notified PURA Aguilar night flanging operator.
[2024-12-11 18:46] LABS: Blood Urea Nitrogen 8 mg/dl (7-17); Calcium 7.2 mg/dl (8.4-10.2); Carbon Dioxide 17 mmol/L (22-30); Chloride 92 mmol/L (98-107); Estimated Creatinine Clearance 41 ml/min; Glucose 110 mg/dl (70-99); Potassium 3.7 mmol/L (3.5-5.1); Sodium 117 mmol/L (135-145); eGFR > 60.00
--- NOTE | 2024-12-11 19:36 | PTCARENOTE ---
Report given verbally to oncKristen jewell RN. Questions answered.
[2024-12-11] MEDS: HEPARIN 2500 UNITS SC (20:35)
--- NOTE | 2024-12-11 21:51 | PTCARENOTE ---
Handoff report received from off going RN. Bedside rounds completed with off going RN. Patient received in bed drowsy but easily arousable. AAOx3 and able to make her needs known.Plan of care for the shift reviewed with the patient. Sinus rhythm on
the monitor. MAEx4. Clear breath sounds. SpO2 at 95% on room air. Hypoactive BS. Garrett catheter is draining cloudy yellow urine. D5NS at 50 ml/hr. Patient declined mouth care. Pt turns and repositions herself. Bed alarm in use. Call trevino and
personal belonging are within use.
[2024-12-12] VITALS (16 sets, daily range): BP systolic 96–143; BP diastolic 51–76; BMI 14.6
--- NOTE | 2024-12-12 00:28 | PTCARENOTE ---
Patient reassessed. Continues to reposition herself. Sinus berny on the monitor with HR 56-59. Pt remains drowsy and oriented x3. Bed alarm remains in use. Call trevino is within reach.
[2024-12-12] MEDS: HEPARIN 2500 UNITS SC ×3 (03:46→20:10)
[2024-12-12 03:53] LABS: Hematocrit 29.1 % (37.0-47.0); Hemoglobin 10.7 g/dL (12.0-16.0); Mean Corp Hgb Conc. 36.8 g/dL (33.0-37.0); Mean Corpuscular Hgb 31.7 pg (27.0-31.0); Mean Corpuscular Volume 86.1 fL (81.0-99.0); Platelet Count 200 10^3/uL (130-400); Red Blood Cell Count 3.38 10^6/uL (4.20-5.40); Red Cell Dist. Width 12.7 % (11.5-14.5); White Blood Cell Count 4.3 10^3/uL (4.8-10.8)
[2024-12-12 04:14] LABS: Blood Urea Nitrogen 12 mg/dl (7-17); Calcium 8.2 mg/dl (8.4-10.2); Carbon Dioxide 20 mmol/L (22-30); Chloride 93 mmol/L (98-107); Estimated Creatinine Clearance 41 ml/min; Glucose 91 mg/dl (70-99); Phosphorus 2.9 mg/dl (2.5-4.5); Sodium 120 mmol/L (135-145); eGFR > 60.00
--- NOTE | 2024-12-12 05:29 | PTCARENOTE ---
Sis reassessed. No new changes. pt cleansed with CHG wipes. Linens changed.
[2024-12-12] MEDS: D5/0.9% SODIUM CHLORIDE 1000 IV (05:38)
--- NOTE | 2024-12-12 07:41 | W.PN.INTV ---
Today's Communication / Plan
Recommendations
Continue to trend serum sodium with BMP frequency dictated by nephrology
Her mentation is back to normal
Sodium this morning is 120
PT/OT
Up OOB as tolerated
Patient's sodium has improved and she no longer requires ICU level of care. Continue trending serum sodium with frequency dictated by nephrology who will continue to follow along.
Patient stable for downgrade out of ICU to [facility]. No additional recommendations at this time. Sample Distributor/Pulmonary service will now sign off. Please reconsult if there are any additional questions/concerns, or if patient's respiratory status
deteriorates.
Assessment
-
84-year-old female with a past medical history of skin basal cell carcinoma, ovarian cancer, osteoporosis, mitral regurgitation, tricuspid regurgitation, history of skin squamous cell carcinoma, A-fib, overactive bladder, history of recurrent UTIs,
history of small bowel obstruction s/p resection, history of right thigh melanoma in situ, hearing loss, hypertension and history of MRSA on her foot who presented with dizziness, nausea and vomiting. At baseline she is ANO x 3, independent, quilts
and goes on walks. She was found to be severely hyponatremic to 108. In the ER she was given Zofran and Ativan. Nephrology consulted who recommended to give 3%, and to fluid restrict. Apparently patient was drinking an excessive amount of water
and has been focused on drinking water ever since her prior small bowel obstructions. Patient was admitted to the ICU for further care and Sample Distributor services consulted for additional management/recommendations.
Impression:
#Severe hyponatremia due to polydipsia - hyponatremia improved and her mental status has markedly improved today
#Toxic�metabolic encephalopathy due to hyponatremia - encephalopathy now resolved
#Anemia (at least chronic component as Hb was 11.2�11.8 in July 2024)
#Hypochloremia - resolved
#Transaminitis with hyperbilirubinemia
#Hypocalcemia
#History of valvular heart disease
#History of A-fib
#History of SBO s/p small bowel resection in January 2017
Plan:
- Patient is s/p 3% x 50 cc on admission
- Continue to trend serum sodium with serial BMP
- Careful to overcorrect, with goal correction of sodium of <10-12 mmol/L in 24 hours, and <16-18 mmol/L in 48 hours
- Nephrology consulted and recs appreciated
- Trend LFTs
- Maintain MAP>65
- Keep SpO2 >90-94%
- Aspiration precautions - not as important as she is no longer altered and she is back to her baseline mentation as per the daughter today
- Antiemetics as needed (patient had vomited prior to arrival); monitor off antibiotics and follow-up blood culture (shows NGTD)
- Pain control (she has bilateral shoulder pain)
- Replete K>4, Mg>2 and corrected Ca>8.4
- Transfuse PRBC if needed to keep Hb >7 g/dL, plt>20k
- stress ulcer ppx: n/a
- DVT ppx: HSQ
Patient's sodium has improved and she no longer requires ICU level of care. Continue trending serum sodium with frequency dictated by nephrology who will continue to follow along.
Patient stable for downgrade out of ICU to [facility]. No additional recommendations at this time. Sample Distributor/Pulmonary service will now sign off. Thank you for allowing us to be involved in the care of this patient. Please reconsult if there are
any additional questions/concerns, or if patient's respiratory status deteriorates.
Total time spent today was 57 minutes for this encounter. Time includes reviewing laboratory test/imaging results, reviewing pertinent medical records, obtaining and reviewing medical history, performing an appropriate exam, ordering medications,
tests and procedures. Time also includes documentation of this encounter, coordinating patient care and communicating with other healthcare professionals. Total time does not include separately billed tests performed on this date of service.
Subjective Dataa
Subjective Data
Date of Service:
Date of Service: December 12, 2024
Chief Complaint: Sample Distributor Follow Up
Subjective:
Patient seen and evaluated today at bedside. She is much more awake today, following all commands and her , Markell, is at bedside. Daughter at bedside as well. Sodium this morning is 120. Currently, heart rate 81, BP 124/73 and saturating
97% on room air. Patient denies shortness of breath, chest pain, GARCIA, nausea, fevers or chills.
Review of Systems
General: Other (Negative unless mentioned above)
Objective Data
Data Reviewed
Vital Signs / I&O / Oxygen:
Vital Signs
Temp Pulse Resp BP Pulse Ox
97.9 F 64 16 105/54 95
12/12/24 07:00 12/11/24 19:00 12/11/24 19:00 12/11/24 19:00 12/11/24 20:30
Intake and Output
12/11/24 12/12/24 12/13/24
06:59 06:59 06:59
Intake Total 70 / 70 700 / 700
Output Total 1625 / 1625
Balance 70 / 70 -925 / -925
SaO2 95
Physical Exam
General: Respiratory Distress (negative), Comfortable, Chills (negative) and Sweats (negative)
HEENT: Normocephalic and Anicteric
Cardiovascular: S1-S2 and Peripheral Edema (negative)
Respiratory: Wheeze (negative), Crackles (negative), Rhonchi (negative) and Non-Labored Respirations
GI: Soft, Non Distended, Non Tender and Normal Bowel Sounds
Neurology: AO x 3 and Tremors (negative)
Skin: Warm, Dry, Cyanosis (negative) and Jaundice (negative)
Labs/Micro/Reports
Lab Data
12/12/24 03:40
12/12/24 03:40
Microbiology
12/11/24 02:38 Blood/Venous Blood Culture - Preliminary
No Growth in 24 hours- Final report to follow
12/10/24 22:14 Blood/Venous Blood Culture - Preliminary
No Growth in 24 hours- Final report to follow
12/10/24 14:27 Nasal Swab Influenza Types A & B (KRISTIE) - Final
Negative for Influenza A & B, NAAT
Negative results must be combined with clinical observations
and patient history.
Nucleic Acid Amplification test (NAAT)performed on the
[facility] platform.
--- NOTE | 2024-12-12 07:57 | PTCARENOTE ---
Vitals signs filed for previous shift from 12/11/241999- 12/12/24 0700.
[2024-12-12] MEDS: MIRALAX 17 GRAMS PO (08:40)
[2024-12-12] MEDS: NORVASC 2.5 MG PO (08:40)
[2024-12-12] MEDS: VITAMIN D3 (cholecalciferol) PO ×2 (08:41→08:47)
[2024-12-12] MEDS: THERAGRAN 1 TABLET PO (08:41)
[2024-12-12] MEDS: OSCAL CAL 500 PO ×2 (08:41→08:47)
--- NOTE | 2024-12-12 08:51 | PTCARENOTE ---
Rec'd pt at 0700. Pt AAOx3, follows commands, CASTILLO. QUECHAN. Pt pleasant and cooperative. Monitor SR. Lungs CTA. Garrett draining yellow urine. Pt's daughter at bedside, updated. Good appetite at breakfast.
--- NOTE | 2024-12-12 09:06 | W.PN.NEPH.PH ---
Today's Communication / Plan
-
IV fluid
Assessment/Plan
-
84-year-old female past medical history of partial small bowel obstruction, paroxysmal atrial fibrillation, hypertension, ovarian cancer, presenting with acute change in mental status starting an hour prior to arrival associate with nausea and
vomiting. Prior to coming to the hospital she drank about seven glasses of water because she wasn't feeling well but has not been drinking excessive water over last few weeks. In fact she's been eating very little and drinking very little overall.
Her daughter was at the bedside who provided history states that since her bowel obstruction she's very cautious about what she eats eating and eating small quantities. With that she is been slowly deteriorating and presents here with hyponatremia
of 108 with minimal responsiveness 20 verbal stimuli. Also hypothermic at 95.7
Impression.
Acute hyponatremia of 108.
hypothermia.
altered Mental status.
Plan.
follow BMP
Continue saline at this time
Encourage p.o. intake
Maintain fluid restriction 48 ounces for now
elevated ADH likely from nausea/vomiting, it does not appear that she actually retained all the water she had been drinking
d/w daughter at bedside
-
-
Date of Service: December 12, 2024
CC / HPI / ROS
-
Chief Complaint:
hyponatremia
History of Present Illness:
Na up to 120 with saline IV overnight
Now awake and alert, oriented
Mild acidosis persists
BP stable
Review of Systems:
No chest pain or shortness of breath
Labs
-
Labs:
WBC 4.3 10^3/uL (4.8-10.8) L 12/12/24 03:40
RBC 3.38 10^6/uL (4.20-5.40) L 12/12/24 03:40
Hgb 10.7 g/dL (12.0-16.0) L 12/12/24 03:40
Hct 29.1 % (37.0-47.0) L 12/12/24 03:40
Plt Count 200 10^3/uL (130-400) 12/12/24 03:40
Sodium 120 mmol/L (135-145) L 12/12/24 03:40
Potassium 4.0 mmol/L (3.5-5.1) 12/12/24 03:40
Chloride 93 mmol/L (98-107) L 12/12/24 03:40
Carbon Dioxide 20 mmol/L (22-30) L 12/12/24 03:40
BUN 12 mg/dl (7-17) 12/12/24 03:40
Creatinine 0.5 mg/dL (0.6-1.0) L 12/12/24 03:40
eGFR > 60.00 12/12/24 03:40
Glucose 91 mg/dl (70-99) 12/12/24 03:40
Calcium 8.2 mg/dl (8.4-10.2) L 12/12/24 03:40
Phosphorus 2.9 mg/dl (2.5-4.5) 12/12/24 03:40
Albumin 3.5 g/dl (3.5-5.0) 12/11/24 02:38
Physical Exam
-
Vital Signs:
Vital Signs
Temp Pulse Resp BP Pulse Ox
97.9 F 81 22 119/74 97
12/12/24 07:00 12/12/24 08:35 12/12/24 08:35 12/12/24 08:35 12/12/24 08:35
Cardiovascular:: Regular rate and rhythm
Respiratory:: Bilateral: CTA
Lung Excursion:: Normal
Abdomen:: Nontender and Soft
Bowel Sounds:: Normal
Extremity Edema:: None: Bilateral:
[2024-12-12 12:55] LABS: Blood Urea Nitrogen 11 mg/dl (7-17); Calcium 8.6 mg/dl (8.4-10.2); Carbon Dioxide 22 mmol/L (22-30); Chloride 104 mmol/L (98-107); Estimated Creatinine Clearance 40 ml/min; Glucose 94 mg/dl (70-99); Sodium 132 mmol/L (135-145); eGFR > 60.00
--- NOTE | 2024-12-12 13:40 | W.PN.HOSP.TC ---
Addendum entered and electronically signed by Eagle Dallas MD 12/12/24 16:16:
Underweight
Original Note:
Today's Communication/Plan
-
see bold
Assessment / Plan
Assessment / Plan
Gen: NAD, NCAT, appears chronically ill and malnourished
Neck: supple.
CV: RRR, +S1/S2, no m/r/g.
Resp: CTAB, no rales, wheezes, or rhonchi.
Abd: +BS, soft, NT, ND
Skin: No rashes.
Neuro: resting but moves facial muscles and upper extremities during physical exam
Psych: calm
Acute metabolic encephalopathy secondary to severe acute hyponatremia secondary to polydipsia:
-also a component of SIADH due to nausea/vomiting
-Na 108 on admission, then 117 after 3% NS, now on D5NS as per renal and Na 130
Other problems:
Diarrhea: possible gastroenteritis, monitor
h/o pSBO
Paroxysmal atrial fibrillation: Not AC
Essential hypertension: cont Norvasc
h/o Ovarian cancer
Severe protein calorie malnutrition
FULL/heparin
Anticipated Discharge: 24 - 48 hours
Subjective/Interval History
-
Date of Service: December 12, 2024
Objective Data
-
Labs:
Laboratory Results
12/12/24 12/12/24 12/12/24
03:40 12:20 20:00
WBC 4.3 L
Hgb 10.7 L
Hct 29.1 L
Plt Count 200
Sodium 120 L 132 L D Pending
Potassium 4.0 4.0 Pending
Chloride 93 L 104 Pending
Carbon Dioxide 20 L 22 Pending
BUN 12 11 Pending
Creatinine 0.5 L 0.5 L Pending
Glucose 91 94 Pending
Calcium 8.2 L 8.6 Pending
Vital Signs:
Vital Signs
Temp Pulse Resp BP Pulse Ox
97.9 F 72 14 130/65 98
12/12/24 07:00 12/12/24 09:00 12/12/24 09:00 12/12/24 09:00 12/12/24 09:00
I&O
12/11/24 12/12/24 12/13/24
06:59 06:59 06:59
Intake Total 70 / 70 700 / 750 780 / 780
Output Total 1625 / 1625 1650 / 1650
Balance 70 / 70 -925 / -875 -870 / -870
--- NOTE | 2024-12-12 15:16 | PTCARENOTE ---
Addendum entered by Tari Benoit RN 12/12/24 15:27:
Pt's daughter went home at 1130 after pt's arrived at beside.
Original Note:
~1430 pt's daughter Genesis called to ask about afternoon sodium level. Verified that Na+132 and that MD was aware, labs were completed by peripheral stick. Daughter asked if she could speak to Dr. Katy MD notified. messaged and stated that he
called daughter. Per MD pt's daughter stated that she thought her mom had slurred speech and a facial droop this morning but that she didn't mention it to anyone and that other family members thought so as well. RN went in room to reassess pt, no
facial droop noted and speech was clear, no other deficits noted. Verified that was only other visitor today, both him and pt stated that her speech seemed normal to them and there was no facial droop that they noticed. Pt and stated
that she had eye surgery done before for her 'droopy eyes' and sometimes they can look that way in the morning. aware of situation, no CT scan at this time.
--- NOTE | 2024-12-12 16:39 | W.PN.UPDATE ---
Update Note
Progress Note Update
Return to see patient. Spoke to daughter on phone who was concerned about last sodium level. I reassured her that the patient was only receiving saline and that this improvement of her hyponatremia was not concerning. It is more indicative that
the patient is correcting her hyponatremia by herself. The daughter then expressed concerns at the patient's speech was slurred and her face was droopy. When I came to see her the was at the bedside. We discussed those issues and he
indicated that he did not believe that this was the case. On my examination the patient had no slurred speech and had no facial droop.
[2024-12-12 18:11] LABS: Blood Urea Nitrogen 12 mg/dl (7-17); Calcium 8.4 mg/dl (8.4-10.2); Carbon Dioxide 23 mmol/L (22-30); Chloride 101 mmol/L (98-107); Estimated Creatinine Clearance 40 ml/min; Glucose 111 mg/dl (70-99); Potassium 4.1 mmol/L (3.5-5.1); Sodium 129 mmol/L (135-145); eGFR > 60.00
--- NOTE | 2024-12-12 20:18 | PTCARENOTE ---
Patient received in bed asleep but easily arousable. AAOx3 and pleasant. Plan of care for the shift reviewed with the patient. MAEx4. Sinus rhythm on the monitor. Breath sounds are clear on room air. SpO2 at 96%. + BS. Garrett catheter is draining
yellow urine. The patient turns and repositions herself. Bed in the lowest position. Call trevino and personal belongings are within reach.
[2024-12-12 21:02] LABS: Osmolality Urine 460 mOsm/kg (300-900)
[2024-12-12 21:20] LABS: Urine Sodium 145 mmol/L (30-90)
[2024-12-13] MEDS: HEPARIN 2500 UNITS SC ×3 (03:51→21:01)
[2024-12-13 03:53] VITALS: BP 144/75
[2024-12-13 04:11] LABS: Hematocrit 30.2 % (37.0-47.0); Hemoglobin 10.8 g/dL (12.0-16.0); Mean Corp Hgb Conc. 35.8 g/dL (33.0-37.0); Mean Corpuscular Hgb 31.9 pg (27.0-31.0); Mean Corpuscular Volume 89.1 fL (81.0-99.0); Platelet Count 207 10^3/uL (130-400); Red Blood Cell Count 3.39 10^6/uL (4.20-5.40); Red Cell Dist. Width 13.1 % (11.5-14.5); White Blood Cell Count 6.2 10^3/uL (4.8-10.8)
[2024-12-13 04:16] LABS: ALT (SGPT) 35 U/L (0-35); AST (SGOT) 64 U/L (14-36); Albumin 3.1 g/dl (3.5-5.0); Alkaline Phosphatase 53 U/L (38-126); Blood Urea Nitrogen 12 mg/dl (7-17); Calcium 8.6 mg/dl (8.4-10.2); Carbon Dioxide 22 mmol/L (22-30); Chloride 103 mmol/L (98-107); Direct Bilirubin 0.2 mg/dl (0.0-0.4); Estimated Creatinine Clearance 40 ml/min; Glucose 82 mg/dl (70-99); Phosphorus 2.9 mg/dl (2.5-4.5); Potassium 3.9 mmol/L (3.5-5.1); Sodium 129 mmol/L (135-145); Total Bilirubin 1.1 mg/dl (0.2-1.3); Total Protein 5.5 g/dl (6.3-8.2); eGFR > 60.00
[2024-12-13 06:00] VITALS: BMI 14.0
[2024-12-13] MEDS: THERAGRAN 1 TABLET PO (08:16)
[2024-12-13] MEDS: MIRALAX 17 GRAMS PO (08:16)
[2024-12-13] MEDS: OSCAL CAL 500 PO ×2 (08:16→08:24)
[2024-12-13] MEDS: VITAMIN D3 (cholecalciferol) PO ×2 (08:16→08:24)
[2024-12-13] MEDS: NORVASC 2.5 MG PO (08:17)
[2024-12-13 08:20] VITALS: BP 160/82
--- NOTE | 2024-12-13 08:47 | W.PN.HOSP.TC ---
Today's Communication/Plan
-
PT/OT, check Na in AM
Assessment / Plan
Assessment / Plan
Gen: NAD, awake and alert, NCAT, appears chronically ill and malnourished
Neck: supple.
CV: remains RRR, +S1/S2, no m/r/g.
Resp: CTAB, no rales, wheezes, or rhonchi.
Abd: +BS, soft, NT, ND
Skin: No rashes.
Neuro: CN 2-12 intact
Psych: calm
Acute metabolic encephalopathy secondary to severe acute hyponatremia secondary to polydipsia:
-also a component of SIADH due to nausea/vomiting
-Na 108 on admission, then 117 after 3% NS, then 130 after D5NS, now off IVFs and Na 129
-cont FR
Other problems:
Diarrhea: possible gastroenteritis, monitor
h/o pSBO
Paroxysmal atrial fibrillation: Not AC
Essential hypertension: cont Norvasc
h/o Ovarian cancer
Underweight
FULL/heparin
Anticipated Discharge: Within 24 hours
Subjective/Interval History
-
Date of Service: December 13, 2024
Objective Data
-
Labs:
Laboratory Results
12/13/24
03:46
WBC 6.2
Hgb 10.8 L
Hct 30.2 L
Plt Count 207
Sodium 129 L
Potassium 3.9
Chloride 103
Carbon Dioxide 22
BUN 12
Creatinine 0.5 L
Glucose 82
Calcium 8.6
Total Bilirubin 1.1 D
AST 64 H
ALT 35
Alkaline Phosphatase 53
Vital Signs:
Vital Signs
Temp Pulse Resp BP Pulse Ox
97.7 F 68 18 160/82 98
12/13/24 08:20 12/13/24 08:20 12/13/24 08:20 12/13/24 08:20 12/13/24 08:20
I&O
12/12/24 12/13/24 12/14/24
06:59 06:59 06:59
Intake Total 700 / 750 1560 / 1560
Output Total 1625 / 1625 2650 / 2650 410 / 410
Balance -925 / -875 -1090 / -1090 -410 / -410
[2024-12-13 10:50] VITALS: BP 139/72; PULSE 76
--- NOTE | 2024-12-13 12:33 | W.PN.NEPH.PH ---
Today's Communication / Plan
-
FR
Assessment/Plan
-
84-year-old female past medical history of partial small bowel obstruction, paroxysmal atrial fibrillation, hypertension, ovarian cancer, presenting with acute change in mental status starting an hour prior to arrival associate with nausea and
vomiting. Prior to coming to the hospital she drank about seven glasses of water because she wasn't feeling well but has not been drinking excessive water over last few weeks. In fact she's been eating very little and drinking very little overall.
Her daughter was at the bedside who provided history states that since her bowel obstruction she's very cautious about what she eats eating and eating small quantities. With that she is been slowly deteriorating and presents here with hyponatremia
of 108 with minimal responsiveness 20 verbal stimuli. Also hypothermic at 95.7
Impression.
Acute hyponatremia of 108.
hypothermia.
altered Mental status.
Plan.
follow BMP
Maintain fluid restriction 48 ounces for now
can consider low dose samsca tomorrow and then lasix
d/w daughter at bedside
-
-
Date of Service: December 13, 2024
CC / HPI / ROS
-
Chief Complaint:
hyponatremia
History of Present Illness:
Na 129 stable
awake and alert, oriented
Mild acidosis resolved
BP stable
Review of Systems:
No chest pain or shortness of breath
says her left side head feels fuzzy
hungry
Labs
-
Labs:
WBC 6.2 10^3/uL (4.8-10.8) 12/13/24 03:46
RBC 3.39 10^6/uL (4.20-5.40) L 12/13/24 03:46
Hgb 10.8 g/dL (12.0-16.0) L 12/13/24 03:46
Hct 30.2 % (37.0-47.0) L 12/13/24 03:46
Plt Count 207 10^3/uL (130-400) 12/13/24 03:46
Sodium 129 mmol/L (135-145) L 12/13/24 03:46
Potassium 3.9 mmol/L (3.5-5.1) 12/13/24 03:46
Chloride 103 mmol/L (98-107) 12/13/24 03:46
Carbon Dioxide 22 mmol/L (22-30) 12/13/24 03:46
BUN 12 mg/dl (7-17) 12/13/24 03:46
Creatinine 0.5 mg/dL (0.6-1.0) L 12/13/24 03:46
eGFR > 60.00 12/13/24 03:46
Glucose 82 mg/dl (70-99) 12/13/24 03:46
Calcium 8.6 mg/dl (8.4-10.2) 12/13/24 03:46
Phosphorus 2.9 mg/dl (2.5-4.5) 12/13/24 03:46
Albumin 3.1 g/dl (3.5-5.0) L 12/13/24 03:46
Physical Exam
-
Vital Signs:
Vital Signs
Temp Pulse Resp BP Pulse Ox
97.7 F 68 18 160/82 98
12/13/24 08:20 12/13/24 08:20 12/13/24 08:20 12/13/24 08:20 12/13/24 08:20
Cardiovascular:: Regular rate and rhythm
Respiratory:: Bilateral: Coarse
Lung Excursion:: Normal
Abdomen:: Nontender and Soft
Bowel Sounds:: Normal
Extremity Edema:: None: Bilateral:
[2024-12-13 14:38] VITALS: BP 127/63; BP 150/72; PULSE 73; O2SAT 98
[2024-12-13 15:05] VITALS: BP 139/74
[2024-12-13 19:07] LABS: Blood Urea Nitrogen 17 mg/dl (7-17); Calcium 9.1 mg/dl (8.4-10.2); Carbon Dioxide 24 mmol/L (22-30); Chloride 101 mmol/L (98-107); Estimated Creatinine Clearance 38 ml/min; Glucose 146 mg/dl (70-99); Sodium 134 mmol/L (135-145); eGFR > 60.00
[2024-12-13 23:00] VITALS: BP 140/72
[2024-12-14] MEDS: HEPARIN 2500 UNITS SC ×3 (04:23→20:44)
[2024-12-14 06:54] LABS: Blood Urea Nitrogen 14 mg/dl (7-17); Calcium 8.9 mg/dl (8.4-10.2); Carbon Dioxide 24 mmol/L (22-30); Chloride 100 mmol/L (98-107); Estimated Creatinine Clearance 38 ml/min; Glucose 87 mg/dl (70-99); Sodium 133 mmol/L (135-145); eGFR > 60.00
[2024-12-14 07:30] VITALS: BP 153/77
[2024-12-14] MEDS: OSCAL CAL 500 PO (09:58)
[2024-12-14] MEDS: NORVASC 2.5 MG PO (09:59)
[2024-12-14] MEDS: THERAGRAN 1 TABLET PO (09:59)
[2024-12-14] MEDS: MIRALAX 17 GRAMS PO (09:59)
[2024-12-14] MEDS: VITAMIN D3 (cholecalciferol) PO (10:00)
[2024-12-14] MEDS: TYLENOL 650 MG PO (10:05)
--- NOTE | 2024-12-14 13:08 | CM ---
Reviewed patient chart, indication on behalf of medical staff/PT is for SNF. Will talk to patient/family to determine if agreeable and what options they choose.
Plan: Case management will continue to follow and assist with discharge planning. SNF when stable.
--- NOTE | 2024-12-14 13:55 | W.PN.NEPH.PH ---
Today's Communication / Plan
-
FR and follow labs
d/c paln
Assessment/Plan
-
84-year-old female past medical history of partial small bowel obstruction, paroxysmal atrial fibrillation, hypertension, ovarian cancer, presenting with acute change in mental status starting an hour prior to arrival associate with nausea and
vomiting. Prior to coming to the hospital she drank about seven glasses of water because she wasn't feeling well but has not been drinking excessive water over last few weeks. In fact she's been eating very little and drinking very little overall.
Her daughter was at the bedside who provided history states that since her bowel obstruction she's very cautious about what she eats eating and eating small quantities. With that she is been slowly deteriorating and presents here with hyponatremia
of 108 with minimal responsiveness 20 verbal stimuli. Also hypothermic at 95.7
Impression.
Acute hyponatremia of 108.
hypothermia.
altered Mental status.
Plan.
sodium stable at 133
suspect etiology likely poor po intake and diet change that she did [employer]
cont FR and improve solute intake
no sasmca, if sodium decreases likely consider lasix 10mg daily
BP stable on low dose AMlodipine
follow BMP
d/w daughter and primary at bedside
-
-
Date of Service: December 14, 2024
CC / HPI / ROS
-
Chief Complaint:
hyponatremia
History of Present Illness:
Na better at 133 stable
awake and alert, oriented
BP stable
Review of Systems:
No chest pain or shortness of breath
good appetite
Labs
-
Labs:
WBC 6.2 10^3/uL (4.8-10.8) 12/13/24 03:46
RBC 3.39 10^6/uL (4.20-5.40) L 12/13/24 03:46
Hgb 10.8 g/dL (12.0-16.0) L 12/13/24 03:46
Hct 30.2 % (37.0-47.0) L 12/13/24 03:46
Plt Count 207 10^3/uL (130-400) 12/13/24 03:46
Sodium 133 mmol/L (135-145) L 12/14/24 06:12
Potassium 4.0 mmol/L (3.5-5.1) 12/14/24 06:12
Chloride 100 mmol/L (98-107) 12/14/24 06:12
Carbon Dioxide 24 mmol/L (22-30) 12/14/24 06:12
BUN 14 mg/dl (7-17) 12/14/24 06:12
Creatinine 0.5 mg/dL (0.6-1.0) L 12/14/24 06:12
eGFR > 60.00 12/14/24 06:12
Glucose 87 mg/dl (70-99) 12/14/24 06:12
Calcium 8.9 mg/dl (8.4-10.2) 12/14/24 06:12
Phosphorus 2.9 mg/dl (2.5-4.5) 12/13/24 03:46
Albumin 3.1 g/dl (3.5-5.0) L 12/13/24 03:46
Physical Exam
-
Vital Signs:
Vital Signs
Temp Pulse Resp BP Pulse Ox
97.4 F 78 18 153/77 97
12/14/24 07:30 12/14/24 07:30 12/14/24 07:30 12/14/24 07:30 12/14/24 07:30
Cardiovascular:: Regular rate and rhythm
Respiratory:: Bilateral: CTA
Lung Excursion:: Normal
Abdomen:: Nontender and Soft
Extremity Edema:: None: Bilateral:
Garrett Catheter: No
--- NOTE | 2024-12-14 14:05 | W.PN.HOSP.TC ---
Today's Communication/Plan
-
Monitoring sodium.
Currently no additional correction required.
Start levothyroxine
Physical therapy assessment
Discharge planing Home versus rehab depends on PT assessment
Discussed with nephrology and patient's daughter at the bedside
Assessment / Plan
Assessment / Plan
Acute metabolic encephalopathy secondary to severe acute hyponatremia secondary to polydipsia:
-also a component of SIADH due to nausea/vomiting
Sodium has been stable at 133�134.
Stable oral intake.
Continue free water restriction.
Follow-up BMP as outpatient
Subclinical hypothyroidism
TSH 9.94.
Free T4 at 1.5
Start low-dose of levothyroxine 25 mcg and follow-up TFT as outpatient.
Other problems:
Diarrhea: possible gastroenteritis, monitor
h/o pSBO
Paroxysmal atrial fibrillation: Not AC
Essential hypertension: cont Norvasc
h/o Ovarian cancer
Underweight
FULL/heparin
Anticipated Discharge: 24 - 48 hours
Subjective/Interval History
-
Date of Service: December 14, 2024
Objective Data
-
Labs:
Laboratory Results
12/14/24
06:12
Sodium 133 L
Potassium 4.0
Chloride 100
Carbon Dioxide 24
BUN 14
Creatinine 0.5 L
Glucose 87
Calcium 8.9
Vital Signs:
Vital Signs
Temp Pulse Resp BP Pulse Ox
97.4 F 78 18 153/77 97
12/14/24 07:30 12/14/24 07:30 12/14/24 07:30 12/14/24 07:30 12/14/24 07:30
I&O
12/13/24 12/14/24 12/15/24
06:59 06:59 06:59
Intake Total 1560 / 1560 720 / 720
Output Total 2650 / 2650 1410 / 1410
Balance -1090 / -1090 -690 / -690
Physical Exam
-
General: Well Developed, Well Nourished, No Apparent Distress and Comfortable
HEENT: Normocephalic, Atraumatic, Moist Mucous Membranes, Anicteric and PERRLA
Respiratory: Clear to Auscultation
Cardiac: Regular Rhythm and S1/S2
Breast: Deferred by me
GI: Nontender, Nondistended, Normal Bowel Sounds and Other (NG Tube)
Rectal: Deferred by Provider
Genito-urinary: Deferred by me
Musculoskeletal: No Clubbing, No Cyanosis and No Edema
Neuro: Awake, Alert and Oriented
[2024-12-14] MEDS: SYNTHROID 25 MCG PO (14:42)
[2024-12-14 15:30] VITALS: BP 114/57
--- NOTE | 2024-12-14 18:34 | PTCARENOTE ---
patient NA improving at 133, medicated with Tylenol for c/o upper leg pain with relief, tolerating diet, sat oob for 3 hours this afternoon, vss, will continue to monitor.
[2024-12-14 23:00] VITALS: BP 123/60
[2024-12-15] MEDS: HEPARIN 2500 UNITS SC ×2 (05:00→12:36)
[2024-12-15] MEDS: SYNTHROID 25 MCG PO (05:06)
[2024-12-15 06:00] VITALS: BMI 14.3
[2024-12-15 07:57] LABS: Blood Urea Nitrogen 18 mg/dl (7-17); Calcium 8.7 mg/dl (8.4-10.2); Carbon Dioxide 26 mmol/L (22-30); Chloride 101 mmol/L (98-107); Estimated Creatinine Clearance 39 ml/min; Glucose 87 mg/dl (70-99); Potassium 4.3 mmol/L (3.5-5.1); Sodium 134 mmol/L (135-145); eGFR > 60.00
[2024-12-15 08:00] VITALS: BP 144/69
[2024-12-15] MEDS: NORVASC 2.5 MG PO (08:14)
[2024-12-15] MEDS: OSCAL CAL 500 500 MG PO (08:14)
[2024-12-15] MEDS: VITAMIN D3 (cholecalciferol) 50 MCG PO (08:17)
[2024-12-15] MEDS: THERAGRAN 1 TABLET PO (08:17)
[2024-12-15] MEDS: MIRALAX 17 GRAMS PO (08:19)
[2024-12-15] MEDS: TYLENOL 650 MG PO (13:48)
--- NOTE | 2024-12-15 15:19 | W.DS.TRANS ---
DC Summary - [employer] Manager
-
Discharge Instructions:
Discharge Diagnosis/Procedures TME secondary to hyponatremia.
Diet Regular,Restrict fluids to 48 oz
Instructions:
Stand-Alone Forms:
Changes to Home Medications: Yes
Discharge Medications:
DC Medications w/original date entered in [employer]
coenzyme Q10 100 mg capsule (CoQ-10) 100 mg PO DAILYPRN PRN supplement 08/05/24
amlodipine 2.5 mg tablet 2.5 mg PO DAILY Blood pressure #0 tabs 08/10/24
calcium carbonate (Calcium 600) 600 mg PO DAILY Supplement #0 tabs 08/10/24
cholecalciferol (vitamin D3) 50 mcg (2,000 unit) tablet (Vitamin D3) 50 mcg PO DAILY Supplement #0 tabs 08/10/24
polyethylene glycol 3350 17 gram oral powder packet (Miralax) 17 g PO DAILY Gastrointestinal issue #0 ea 08/10/24
therapeutic multivitamin 1 tab PO DAILY Supplement #0 tabs 08/10/24
levothyroxine 25 mcg tablet 25 mcg PO DAILY @ 0600 #30 tabs 12/15/24
Home Medication Changes
Levothyroxine initiated
Pending Results: No
[2024-12-15 15:23] VITALS: BP 120/65; PULSE 82; O2SAT 98
[2024-12-15 16:07] VITALS: BP 120/65; BP 150/62; PULSE 85; O2SAT 98
[2024-12-15 16:09] VITALS: BP 122/60
--- NOTE | 2024-12-15 16:28 | CM ---
PT recommends HH. OT recommends HH with assist.
Spoke with daughter this morning; she was aware we were waiting for updated PT/OT [facility]- if rehab is needed she prefers [facility].
Met with patient and daughter Genesis; both agree to d/c home today. IMM completed. Patient and daughter agree to [facility] for SN/PT/OT and daughter chose [facility]- gave daughter the phone # for scheduling as patient/ are both hard of hearing.
Daughter will provide transport home today.
Spoke with YARITZA Melgar; referral placed.
Plan home today with YARITZA.
--- NOTE | 2024-12-15 16:54 | PTCARENOTE ---
Order to removed linares obtained and removed @1500. Pt voided large amount of clear yellow urine post removal. D/c order in and pt discharged at this time.
--- NOTE | 2024-12-15 17:34 | W.PN.NEPH.PH ---
Today's Communication / Plan
-
ok for d/c
f/u with PCP BMP in 1week
Assessment/Plan
-
84-year-old female past medical history of partial small bowel obstruction, paroxysmal atrial fibrillation, hypertension, ovarian cancer, presenting with acute change in mental status starting an hour prior to arrival associate with nausea and
vomiting. Prior to coming to the hospital she drank about seven glasses of water because she wasn't feeling well but has not been drinking excessive water over last few weeks. In fact she's been eating very little and drinking very little overall.
Her daughter was at the bedside who provided history states that since her bowel obstruction she's very cautious about what she eats eating and eating small quantities. With that she is been slowly deteriorating and presents here with hyponatremia
of 108 with minimal responsiveness 20 verbal stimuli. Also hypothermic at 95.7
Impression.
Acute hyponatremia of 108.
hypothermia.
altered Mental status.
Plan.
sodium stable at 134
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
cont FR and improve solute intake
BP stable on low dose AMlodipine
follow BMP in 1week with PCP
d/w daughter at bedside
-
-
Date of Service: December 15, 2024
CC / HPI / ROS
-
Chief Complaint:
hyponatremia
History of Present Illness:
Na better at 134 stable
awake and alert, oriented
BP stable
Review of Systems:
No chest pain or shortness of breath
good appetite
Labs
-
Labs:
WBC 6.2 10^3/uL (4.8-10.8) 12/13/24 03:46
RBC 3.39 10^6/uL (4.20-5.40) L 12/13/24 03:46
Hgb 10.8 g/dL (12.0-16.0) L 12/13/24 03:46
Hct 30.2 % (37.0-47.0) L 12/13/24 03:46
Plt Count 207 10^3/uL (130-400) 12/13/24 03:46
Sodium 134 mmol/L (135-145) L 12/15/24 06:47
Potassium 4.3 mmol/L (3.5-5.1) 12/15/24 06:47
Chloride 101 mmol/L (98-107) 12/15/24 06:47
Carbon Dioxide 26 mmol/L (22-30) 12/15/24 06:47
BUN 18 mg/dl (7-17) H 12/15/24 06:47
Creatinine 0.5 mg/dL (0.6-1.0) L 12/15/24 06:47
eGFR > 60.00 12/15/24 06:47
Glucose 87 mg/dl (70-99) 12/15/24 06:47
Calcium 8.7 mg/dl (8.4-10.2) 12/15/24 06:47
Phosphorus 2.9 mg/dl (2.5-4.5) 12/13/24 03:46
Albumin 3.1 g/dl (3.5-5.0) L 12/13/24 03:46
Physical Exam
-
Vital Signs:
Vital Signs
Temp Pulse Resp BP Pulse Ox
98.0 F 73 20 122/60 98
12/15/24 16:09 12/15/24 16:09 12/15/24 16:09 12/15/24 16:09 12/15/24 16:09
Cardiovascular:: Regular rate and rhythm
Respiratory:: Bilateral: CTA
Lung Excursion:: Normal
Abdomen:: Nontender and Soft
Extremity Edema:: None: Bilateral:
Garrett Catheter: No
== END 2024-12-15 17:33 | disposition home health service (06) | DRG 643 ==
LOC: 3 WEST ACU 16:26
PROVIDERS: Nurse Practitioner Primary Care; Physician Assistant; Specialist; ADMITTING PHYSICIAN Hospitalist; ATTENDING PHYSICIAN Internal Medicine; CONSULT PHYSICIAN Internal Medicine Critical Care Medicine; CONSULT PHYSICIAN Internal Medicine Nephrology; EMERGENCY PHYSICIAN Emergency Medicine; FAMILY PHYSICIAN Family Medicine
DX: E22.2 Syndrome of inappropriate secretion of antidiuretic hormone (principal); G92.8 Other toxic encephalopathy; Z68.1 Body mass index [BMI] 19.9 or less, adult; E78.00 Pure hypercholesterolemia, unspecified; I10 Essential (primary) hypertension; I48.0 Paroxysmal atrial fibrillation; E87.8 Other disorders of electrolyte and fluid balance, not elsewhere classified; E83.51 Hypocalcemia; R63.1 Polydipsia; M81.0 Age-related osteoporosis without current pathological fracture; E03.8 Other specified hypothyroidism; I08.1 Rheumatic disorders of both mitral and tricuspid valves; R68.0 Hypothermia, not associated with low environmental temperature; D64.9 Anemia, unspecified; R63.6 Underweight; R13.10 Dysphagia, unspecified; Z79.899 Other long term (current) drug therapy; Z85.43 Personal history of malignant neoplasm of ovary; Z86.006 Personal history of melanoma in-situ; Z11.52 Encounter for screening for COVID-19; Z91.040 Latex allergy status; Z90.722 Acquired absence of ovaries, bilateral; Z90.710 Acquired absence of both cervix and uterus; Z88.0 Allergy status to penicillin; Z87.891 Personal history of nicotine dependence
CPT/HCPCS: 51701; 70450; 71045; 80048; 80053; 81003; 82248; 82570; 83605; 83690; 83735; 83935; 84100; 84300; 84439; 84443; 84484; 85025; 85027; 85610; 85730; 87040; 87070; 87502; 87811; 92610; 93005; 96374; 96375; 97116; 97162; 97166; 97530; 97535; 99291

== ENCOUNTER 2024-12-27 13:53 | Inpatient (IN) | payer OTHER, SELFPAY ==
[2024-12-27] VITALS (14 sets, daily range): BP systolic 110–178; BP diastolic 74–113; BMI 16.6; BMI 15.7
--- NOTE | 2024-12-27 07:22 | ED.GENMED ---
History of Present Illness
General
Chief Complaint: Change in Mental Status
Source: patient
Exam Limitations: none
Time Seen by Provider: 12/27/24 07:11
Nursing documentation reviewed up to this point in time: agreed with
History of Present Illness
History of Present Illness:
84-year-old female past medical history of dementia hypertension hyperlipidemia lives at home presenting to the emergency department with concerns of worsening confusion. Recently treated for UTI with antibiotics over the past few days without
improvement. She denies any specific symptoms here though she is confused she is able to answer basic questioning.
Past History
Past History
ED Past Medical History: Cancer (ovarian), HTN, Hypercholesterolemia, Valvular disease (Mild tricuspid regurgitation) and Other (valve disorder)
ED Past Surgical History: Bowel resection (Small bowel resection for small bowel obstruction January 2017) and Other (Hysterectomy for ovarian CA, bilateral caataract surgery, sinus surgery, left inguinal hernia repair April 2018)
Social History
Tobacco: Former smoker
Alcohol: None
Drug: None
Personal:
Living: with family
Employment: Retired
Family History
Family History: Hypertension
Review of Systems
Review of Systems
Allergies reviewed?: Yes
All Other Systems: ROS reviewed and negative except as documented in HPI and ROS
Phy Exam
Physical Exam
Physical Exam:
GENERAL: Alert , continuously asking for daughter
EYE: pupils equal and reactive
NECK: Supple, no significant adenopathy.
ENT: o/p clr, mmm.
CARDIAC: Regular rate and rhythm .
LUNGS: Clear breath sounds bilaterally, no acute respiratory distress, no wheezes/rales/rhonchi
ABDOMEN: Soft, without focal tenderness, no r/g, no cvat
NEUROLOGICAL: Alert following basic commands no focal neuro deficits
SKIN: Warm and dry, skin intact.
MUSCULOSKELETAL: No edema, well perfused.
PSYCH: Continuously asking for her daughter, answering basic questions about discomfort and symptoms.
Course
Orders/Labs/Results
Orders:
Orders
12/27/24 07:20
0.9% Sodium Chloride 500 ml [Nss] 500 ml IV BOLUS
12/27/24 08:01
Complete Blood Count/With Diff Urgent
Comprehensive Metabolic Panel Urgent
Creatine Phosphokinase Urgent
Comment: ADD ON
Lactic Acid Urgent
Lipase Urgent
TSH Reflex To Free T4 Urgent
Blood Culture Q30M
JENNA Source: Blood/Venous
Specimen Description:
12/27/24 08:02
Urinalysis Reflex To Culture Urgent
Date Specimen was Collected: 12/27/24
Time Specimen was Collected: 07:25
Urine Microscopic Reflex Cult Urgent
Blood Culture Q30M
JENNA Source: Blood/Venous
Specimen Description:
12/27/24 08:45
CT Head W/o Iv Contrast Urgent
Comment:
Reason For Exam: ams fall may have hit head
12/27/24 08:47
0.9% Sodium Chloride 500 ml [Nss] 500 ml IV BOLUS
Chest [CR Chest - 2 Views ] Urgent
Comment:
Reason For Exam: ams
12/27/24 08:48
Add On- LAB Urgent
Tests Added?: creatine kinase
12/27/24 11:28
CT Abd/Pel (IV only)-DH only Urgent
Comment:
Reason For Exam: ams, rcent urniary symptoms
Abnormal Lab Results
12/27/24 12/27/24
08:01 08:02
RBC 3.92 L 10^6/uL
(4.20-5.40)
Hct 36.7 L %
(37.0-47.0)
MCH 32.1 H pg
(27.0-31.0)
Absolute Lymphs (auto) 0.8 L 10^3/uL
(1.2-3.4)
Lymphocytes % 16.4 L %
(20.5-51.1)
Lactic Acid 2.9 H mmol/L
(0.7-2.0)
Total Bilirubin 1.7 H mg/dl
(0.2-1.3)
AST 44 H U/L
(14-36)
Creatine Kinase 318 H U/L
(30-135)
Ur Occult Blood Reflex 1+ A
(Negative)
Urine Bacteria (Reflex) Few A
(Negative)
12/27/24 08:01
12/27/24 08:01
Vital Signs
Initial and Last Documented VS:
Initial Vital Signs
Pulse Resp BP
89 26 178/98
12/27/24 07:25 12/27/24 07:25 12/27/24 07:25
Last Documented Vital Signs
Temp Pulse Resp BP Pulse Ox
98.6 F 76 12 156/78 95
12/27/24 07:40 12/27/24 11:30 12/27/24 11:30 12/27/24 11:00 12/27/24 11:30
MDM/Problems Addressed
MDM/Problems Addressed:
84-year-old female presenting to the emergency department today with concerns of confusion per the daughter over the past few days has been treated with antibiotics for UTI. She denies specific symptoms while here. On arrival afebrile heart rate
in the 80s. Patient is confused throughout examination. Labs without white count but does have elevated lactic acid level 2.9. Slight elevation of creatinine kinase. Urinalysis does not appear to be consistent with infection. Unclear cause of
altered mental status. Head CT without emergent findings. Plan to admit for further monitoring and assessment.
*Critical Care Note
Total Time (30-74mins, 75-104mins- exclusive of procedures): Not Applicable
ED Attending Note
-
Portions of this chart may have been created with voice recognition software.� Occasional wrong word or��sound alike� substitutions may have occurred due to the inherent limitations of voice recognition software.
Discharge Plan
Departure
Patient Disposition: Admit
Date of Disposition: 12/27/24
Time of Disposition: 11:39
Admit to: Med/Surg
Admit to doctor: Reese
Presentation/result/management discussed w/ accepting MD/DO: Hospitalist
Patient with high blood pressure during this ER visit?: No
Condition: Good
Covid-19: Not Applicable
Discharge Problem:
AMS (altered mental status)
Prescriptions:
No Action
coenzyme Q10 [CoQ-10] 100 mg Capsule
100 mg PO DAILYPRN PRN (Reason: supplement)
polyethylene glycol 3350 [Miralax] 17 gram Powder In Packet
17 g PO DAILY Qty: 0 0RF
therapeutic multivitamin Tablet
1 tab PO DAILY Qty: 0 0RF
amlodipine 2.5 mg Tablet
2.5 mg PO DAILY Qty: 0 0RF
calcium carbonate [Calcium 600] 600 mg calcium (1,500 mg) Tablet
600 mg PO DAILY Qty: 0 0RF
cholecalciferol (vitamin D3) [Vitamin D3] 50 mcg (2,000 unit) Tablet
50 mcg PO DAILY Qty: 0 0RF
levothyroxine 25 mcg Tablet
25 mcg PO DAILY @ 0600 Qty: 30 0RF
Referrals:
Sandra Kerr MD [Family Provider] -
Interventions
Interventions:
*Risk Screen - Suicide Last Done: 12/27/24 07:40
*General Assessment Last Done: 12/27/24 07:40
*Neglect/Abuse Screening Last Done: 12/27/24 07:40
ED- Fall Risk Assessment Last Done: 12/27/24 07:57
*ED COVID-19 Vaccine History Last Done: 12/27/24 07:40
ED- Pulmonary Assessment Last Done: 12/27/24 07:57
ED- Neurological Assessment Last Done: 12/27/24 07:57
ED- Cardiac Assessment Last Done: 12/27/24 07:57
Discharge Date and Time
Print Language: ARABIC
[2024-12-27] MEDS: NSS 500 IV ×2 (07:59→09:40)
[2024-12-27 08:24] LABS: % Basophils 1.4 % (0-2); % Immature Granulocytes 0.2 % (0-0.5); % Lymphocytes 16.4 % (20.5-51.1); % Monocytes 7.7 % (1.7-9.3); % Neutrophils 73.3 % (42.2-75.2); Absolute Basophils 0.1 10^3/uL (0-0.2); Absolute Eosinophils 0.1 10^3/uL (0-0.7); Absolute Lymphocytes 0.8 10^3/uL (1.2-3.4); Absolute Monocytes 0.4 10^3/uL (0.1-0.6); Absolute Neutrophils 3.7 10^3/uL (1.4-6.5); Hematocrit 36.7 % (37.0-47.0); Hemoglobin 12.6 g/dL (12.0-16.0); Mean Corp Hgb Conc. 34.3 g/dL (33.0-37.0); Mean Corpuscular Hgb 32.1 pg (27.0-31.0); Mean Corpuscular Volume 93.6 fL (81.0-99.0); Nucleated Red Blood Cells % 0 %; Platelet Count 348 10^3/uL (130-400); Red Blood Cell Count 3.92 10^6/uL (4.20-5.40); Red Cell Dist. Width 14.2 % (11.5-14.5); White Blood Cell Count 5.1 10^3/uL (4.8-10.8)
[2024-12-27 08:32] LABS: Lactic Acid 2.9 mmol/L (0.7-2.0)
[2024-12-27 08:32] LABS: Urine Albumin Negative (Neg - Trace); Urine Bilirubin Negative (Negative); Urine Character Clear (Clear); Urine Color Yellow; Urine Glucose Negative (Negative); Urine Ketone Negative (Negative); Urine Leukocyte Negative (Negative); Urine Nitrite Negative (Negative); Urine Occult Blood 1+ (Negative); Urine Urobilinogen Negative (Neg - 1+)
[2024-12-27 08:33] LABS: ALT (SGPT) 25 U/L (0-35); AST (SGOT) 44 U/L (14-36); Albumin 4.6 g/dl (3.5-5.0); Alkaline Phosphatase 82 U/L (38-126); Blood Urea Nitrogen 14 mg/dl (7-17); Calcium 10.1 mg/dl (8.4-10.2); Carbon Dioxide 23 mmol/L (22-30); Chloride 103 mmol/L (98-107); Estimated Creatinine Clearance 34 ml/min; Glucose 81 mg/dl (70-99); Lipase 211 U/L (23-300); Potassium 3.9 mmol/L (3.5-5.1); Sodium 138 mmol/L (135-145); Total Bilirubin 1.7 mg/dl (0.2-1.3); Total Protein 7.7 g/dl (6.3-8.2); eGFR > 60.00
[2024-12-27 08:45] LABS: Urine Bacteria Few (Negative); Urine Red Blood Cell 0-2 /HPF (0-2); Urine Squamous Cell 0-2 /LPF (Few); Urine White Cell 0-2 /HPF (0-5)
[2024-12-27 09:03] LABS: TSH Reflex To Free T4 3.35 uIU/ml (0.47-4.68)
[2024-12-27 09:16] LABS: Creatine Phosphokinase 318 U/L (30-135)
--- NOTE | 2024-12-27 15:18 | HPS.HSE ---
Family Physician
-
Family Physician: Sandra Kerr
Chief Complaint
-
Confusion
History of Present Illness
84-year-old woman past medical history of dementia, (but usually can take care of self). hypertension, hyperlipidemia, lives at home presenting with concerns of worsening confusion. She was recently treated for UTI with antibiotics for the last 3
days without improvement. She denies any specific symptoms here, and though she is confused, she is able to answer basic questioning. At the time of my interview she was comfortable and pleasantly confused. Her daughter provided most of the
history. Daughter states she was placed on nitrofuratoin.
Medical History
Past Medical History
Past Medical History: Reports Other
Additional Past Medical History:
Cancer (ovarian),
essential HTN,
Hypercholesterolemia,
Valvular disease (Mild tricuspid regurgitation)
Bowel resection (Small bowel resection for small bowel obstruction January 2017)
Hysterectomy for ovarian CA,
bilateral caataract surgery,
sinus surgery,
left inguinal hernia repair April 2018
Past Surgical History: Reports Other
Additional Past Surgical History:
See above
Social History
Tobacco: Non-smoker
Alcohol: None
Drug: None
Personal:
Living: With Family
Family History
Family History: Not pertinent
Allergies / Home Medications
Allergies reflects when Allergies were last updated in [facility].
Home Medications with original date entered in [facility]
Allergy/Medication List:
Allergies
Allergy/AdvReac Type Severity Reaction Status Date / Time
Arnica (Arnica [place]) Allergy severe Verified 12/27/24 07:56
hypertension
barium sulfate Allergy Unknown Verified 12/27/24 07:56
latex Allergy Unknown Verified 12/27/24 07:56
Penicillins Allergy Rash Verified 12/27/24 07:56
Home Medications
amlodipine 2.5 mg tablet 2.5 mg PO DAILY Blood pressure #0 tabs 08/10/24
polyethylene glycol 3350 17 gram oral powder packet (Miralax) 17 g PO DAILY Gastrointestinal issue #0 ea 08/10/24
levothyroxine 25 mcg tablet 25 mcg PO DAILY @ 0600 #30 tabs 12/15/24
nitrofurantoin 100 mg capsule 100 mg PO BID 12/27/24
Review of Systems
-
Unable to obtain full review of systems at this time due to: Acuity
History Source: Patient
A 12 point ROS was completed and negative except as noted: Yes
Physical Exam
Vital Signs
Vital Signs
Temp Pulse Resp BP Pulse Ox
98.7 F 76 21 154/89 96
12/27/24 13:15 12/27/24 14:00 12/27/24 14:00 12/27/24 14:00 12/27/24 14:00
Physical Exam
General: Well Developed, Well Nourished, No Apparent Distress and Comfortable
HEENT: NormoCephalic, Nose Appears Normal and Ears Appear Normal
Respiratory: Clear and Decreased Breath Sounds
Cardiac: S1/S2 and Regular Rhythm
GI: Soft, Non Tender and Non Distended
Musculoskeletal: No Clubbing, No Cyanosis and No Edema
Skin: Warm and Dry
Neuro: Awake and Alert; No Oriented
Psych: Calm and Confused
Laboratory Results
-
12/27/24 08:01
12/27/24 08:01
Laboratory Results
Lactic Acid 2.9 mmol/L (0.7-2.0) H 12/27/24 08:01
Total Bilirubin 1.7 mg/dl (0.2-1.3) H 12/27/24 08:01
AST 44 U/L (14-36) H 12/27/24 08:01
ALT 25 U/L (0-35) 12/27/24 08:01
Alkaline Phosphatase 82 U/L (38-126) 12/27/24 08:01
Lipase 211 U/L (23-300) 12/27/24 08:01
Data Reviewed
-
Lab Data: Labs Reviewed by me
Impression/Plan
-
IMPRESSION:
84 woman with confusion after being diagnosed with UTI, and started on nitrofurantoin.
Lactic acid 2.9
PLAN:
1. Confusion, could be metabolic encephalopathy from infection, or psychosis from nitrofurantoin
Stop nitrofurantoin
Given findings on CXR, decreased breath sounds on exam, cover for pulmonary organisms
(allergic to PCN)
Otherwise supportive care and follow clinical course
2. H/O recent UTi
Follow results of our UA/UC
3. Essential HTN - continue home meds
4. Hypothyroidism - continue levothyroxine
Code:Full
VCD for DVTp
[2024-12-27] MEDS: VIBRAMYCIN 260 MG IV (17:55)
--- NOTE | 2024-12-27 18:16 | PTCARENOTE ---
Patient admitted into room 402-01 from the ER. Oriented to room, use of call trevino and TV/bed controls. Patient and family verbalize understanding of teaching. IV antibiotic administered as ordered. Assisted patient with ordering dinner. Patient
resting comfortably in bed at this time.
--- NOTE | 2024-12-27 19:01 | PTCARENOTE ---
BP 160/100 - checked manually. Reported to Dr. Disla with receipt confirmation.
[2024-12-28] MEDS: SYNTHROID 25 MCG PO (05:54)
[2024-12-28] MEDS: VIBRAMYCIN 260 MG IV (05:54)
[2024-12-28 07:31] VITALS: BP 140/73
[2024-12-28] MEDS: MIRALAX 17 GRAMS PO (07:52)
[2024-12-28] MEDS: NORVASC 2.5 MG PO (07:52)
[2024-12-28 08:00] LABS: Hematocrit 35.7 % (37.0-47.0); Mean Corp Hgb Conc. 33.6 g/dL (33.0-37.0); Mean Corpuscular Hgb 31.9 pg (27.0-31.0); Mean Corpuscular Volume 94.9 fL (81.0-99.0); Mean Platelet Volume 10.3 fL (7.4-10.4); Platelet Count 335 10^3/uL (130-400); Red Blood Cell Count 3.76 10^6/uL (4.20-5.40); Red Cell Dist. Width 14.2 % (11.5-14.5); White Blood Cell Count 4.1 10^3/uL (4.8-10.8)
--- NOTE | 2024-12-28 08:29 | W.PN.HOSP.TC ---
Addendum entered and electronically signed by Clint Grigsby MD 12/29/24 09:10:
Discussed w/ daughter, correction: patient does not have dementia.
Original Note:
Today's Communication/Plan
-
see bold
Assessment / Plan
Assessment / Plan
HPI: 84-year-old female past medical history of dementia, (but usually can take care of self). hypertension, hyperlipidemia, lives at home presenting with concerns of worsening confusion. She was recently treated for UTI with antibiotics for the
last 3 days without improvement. She denies any specific symptoms here, and though she is confused, she is able to answer basic questioning. At the time of my interview she was comfortable and pleasantly confused. Her daughter provided most of
the history. Daughter states she was placed on nitrofuratoin.
#Acute encephalopathy
Possibly secondary to Macrobid versus UTI
Improving, TSH normal, follow-up on B12 levels
PT/OT rec HH
#Recent urinary tract infection
Urine analysis here unremarkable as patient was on Macrobid
Macrobid discontinued due to the above
Start Keflex
#Dementia, unspecified type
She is independent in self-care at baseline
#Essential hypertension
Continue amlodipine 2.5 mg daily
Hypothyroidism
Continue levothyroxine
DVT prophylaxis�subcu Lovenox
Full code
Total time spent to see the patient on the floor, examine the patient, review data and lab results, discuss treatment plan with patient, nursing staff around 51 minutes.
Physical Exam
General: Frail, elderly, no acute distress
HEENT: Normocephalic, Atraumatic, EOMI, MMM
Respiratory: Clear to Auscultation bilaterally
Cardiac: Normal S1/S2, Regular Rate and Rhythm
GI: Soft, Nontender, Nondistended, Normal Bowel Sounds
Extremities: No Clubbing, Cyanosis, or Edema
Neuro: Nonfocal/Grossly Intact, oriented x 4
Psych: Calm, Cooperative
Derm: No Visible lesions
Anticipated Discharge: 24 - 48 hours
Subjective/Interval History
-
Date of Service: December 28, 2024
Patient reports dysuria has improved. She is coughing. Denies shortness of breath. No fever, no vomiting.
Objective Data
-
Labs:
Laboratory Results
12/28/24
06:34
WBC 4.1 L
Hgb 12.0
Hct 35.7 L
Plt Count 335
Sodium Pending
Potassium Pending
Chloride Pending
Carbon Dioxide Pending
BUN Pending
Creatinine Pending
Glucose Pending
Calcium Pending
Vital Signs:
Vital Signs
Temp Pulse Resp BP Pulse Ox
98.4 F 86 16 132/85 97
12/27/24 23:28 12/28/24 07:52 12/27/24 23:28 12/28/24 07:52 12/27/24 23:28
I&O
12/27/24 12/28/24 12/29/24
06:59 06:59 06:59
Intake Total 500 / 500
Balance 500 / 500
[2024-12-28 08:33] LABS: Blood Urea Nitrogen 10 mg/dl (7-17); Calcium 9.4 mg/dl (8.4-10.2); Carbon Dioxide 23 mmol/L (22-30); Chloride 102 mmol/L (98-107); Creatine Phosphokinase 211 U/L (30-135); Estimated Creatinine Clearance 36 ml/min; Glucose 75 mg/dl (70-99); Magnesium 2.1 mg/dl (1.6-2.3); Potassium 3.7 mmol/L (3.5-5.1); Sodium 134 mmol/L (135-145); eGFR > 60.00
--- NOTE | 2024-12-28 08:55 | VNURNOTE ---
Chart reviewed. Patient is current with [facility] nursing, PT, OT. Will continue to follow hospital course and DC plans.
[2024-12-28 10:37] VITALS: BP 140/76; PULSE 75; O2SAT 96
[2024-12-28 10:47] VITALS: BP 140/76; PULSE 75; O2SAT 96
[2024-12-28] MEDS: KEFLEX 500 MG PO ×3 (11:41→19:41)
[2024-12-28 13:55] VITALS: BMI 15.7
[2024-12-28 16:00] VITALS: BP 123/86
[2024-12-28 23:55] VITALS: BP 126/56
--- NOTE | 2024-12-29 00:04 | W.PN.UPDATE ---
Update Note
Progress Note Update
pt confused and screaming.Trying to spit at nurses. At one point pt put her hands around her neck and stated ' i want to .'
RN had to physically remove hand from pt neck.
1:1 initiated for suicide precautions
Psych consult placed.
Ativan iv for severe agitation (received last admit)
--- NOTE | 2024-12-29 00:06 | PTCARENOTE ---
Addendum entered by Leonard Hicks RN 12/29/24 00:10:
pt's neck is red in the area that she was choking herself
Original Note:
pt found choking herself with both hands- her hands were pulled away from neck- she then screamed that she wants to - rock singer ordered one to one- safe environment maintained per protocol
[2024-12-29] MEDS: TYLENOL 650 MG PO ×2 (00:25→12:33)
[2024-12-29] MEDS: ATIVAN 0.5 MG IV (00:48)
--- NOTE | 2024-12-29 05:14 | PTCARENOTE ---
pt was choking herself again - Ativan given and pt has been sleeping - no more attempts at harming herself since Ativan was given- see mar. pt sleeps when left undisturbed- remains 1-1
[2024-12-29 07:15] VITALS: BP 134/64
[2024-12-29 07:35] LABS: % Basophils 1.3 % (0-2); % Eosinophils 3.2 % (0-6); % Immature Granulocytes 0.4 % (0-0.5); % Lymphocytes 25.9 % (20.5-51.1); % Monocytes 9.4 % (1.7-9.3); % Neutrophils 59.8 % (42.2-75.2); Absolute Basophils 0.1 10^3/uL (0-0.2); Absolute Eosinophils 0.2 10^3/uL (0-0.7); Absolute Lymphocytes 1.2 10^3/uL (1.2-3.4); Absolute Monocytes 0.4 10^3/uL (0.1-0.6); Absolute Neutrophils 2.8 10^3/uL (1.4-6.5); Mean Corp Hgb Conc. 34.4 g/dL (33.0-37.0); Mean Corpuscular Hgb 32.2 pg (27.0-31.0); Mean Corpuscular Volume 93.6 fL (81.0-99.0); Mean Platelet Volume 10.3 fL (7.4-10.4); Nucleated Red Blood Cells % 0 %; Platelet Count 286 10^3/uL (130-400); Red Blood Cell Count 3.42 10^6/uL (4.20-5.40); White Blood Cell Count 4.7 10^3/uL (4.8-10.8)
[2024-12-29 07:51] LABS: Blood Urea Nitrogen 14 mg/dl (7-17); Calcium 9.2 mg/dl (8.4-10.2); Carbon Dioxide 22 mmol/L (22-30); Chloride 103 mmol/L (98-107); Estimated Creatinine Clearance 36 ml/min; Glucose 76 mg/dl (70-99); Potassium 3.7 mmol/L (3.5-5.1); Sodium 134 mmol/L (135-145); eGFR > 60.00
--- NOTE | 2024-12-29 09:08 | W.PN.UPDATE ---
Update Note
Progress Note Update
Patient is not suicidal. Will cancel 1-1.
--- NOTE | 2024-12-29 09:09 | W.PN.HOSP.TC ---
Today's Communication/Plan
-
see bold
Assessment / Plan
Assessment / Plan
HPI: 84-year-old female past medical history of dementia, (but usually can take care of self). hypertension, hyperlipidemia, lives at home presenting with concerns of worsening confusion. She was recently treated for UTI with antibiotics for the
last 3 days without improvement. She denies any specific symptoms here, and though she is confused, she is able to answer basic questioning. At the time of my interview she was comfortable and pleasantly confused. Her daughter provided most of
the history. Daughter states she was placed on nitrofuratoin.
#Acute encephalopathy
#Mild cognitive impairment at baseline
She is independent in self-care at baseline
Acute confusion may be secondary to Macrobid versus other, unlikely to be due to UTI as urine analysis was negative upon admission
Improving, TSH normal, follow-up on B12 levels
Patient is not suicidal, discontinue one-to-one
Consult psychiatry, consult neurology
PT/OT rec HH
#Recent urinary tract infection
Urine analysis here unremarkable as patient was on Macrobid
Macrobid discontinued due to confusion above
Started Keflex to complete a 5-day course
#Essential hypertension
Continue amlodipine 2.5 mg daily
Hypothyroidism
Continue levothyroxine
DVT prophylaxis�subcu Lovenox
Full code
Total time spent to see the patient on the floor, examine the patient, review data and lab results, discuss treatment plan with patient, nursing staff around 54 minutes.
Physical Exam
General: Frail, elderly, no acute distress
HEENT: Normocephalic, Atraumatic, EOMI, MMM
Respiratory: Clear to Auscultation bilaterally
Cardiac: Normal S1/S2, Regular Rate and Rhythm
GI: Soft, Nontender, Nondistended, Normal Bowel Sounds
Extremities: No Clubbing, Cyanosis, or Edema
Neuro: Nonfocal/Grossly Intact, oriented x 4
Psych: Calm, Cooperative
Derm: No Visible lesions
Anticipated Discharge: 24 - 48 hours
Subjective/Interval History
-
Date of Service: December 29, 2024
Overnight events noted. Patient was confused yesterday evening, and there were concerns about her choking herself. She denies suicidal ideation, she denies wanting to kill herself or harm herself. No fever, no vomiting.
Objective Data
-
Labs:
Laboratory Results
12/29/24
06:15
WBC 4.7 L
Hgb 11.0 L
Hct 32.0 L
Plt Count 286
Sodium 134 L
Potassium 3.7
Chloride 103
Carbon Dioxide 22
BUN 14
Creatinine 0.6
Glucose 76
Calcium 9.2
Vital Signs:
Vital Signs
Temp Pulse Resp BP Pulse Ox
97.4 F 69 16 134/64 99
12/29/24 07:15 12/29/24 07:15 12/29/24 07:15 12/29/24 07:15 12/29/24 07:15
I&O
12/28/24 12/29/24 12/30/24
06:59 06:59 06:59
Intake Total 500 / 500 720 / 720
Balance 500 / 500 720 / 720
[2024-12-29] MEDS: KEFLEX 500 MG PO ×3 (09:14→21:02)
[2024-12-29] MEDS: MIRALAX PO (09:14)
[2024-12-29] MEDS: NORVASC 2.5 MG PO (09:14)
--- NOTE | 2024-12-29 09:26 | PTCARENOTE ---
Pt evaluated by Hospitalist at bedside. Pt drowsy, but arousable to voice. AAOx3. [place], hearing aids at bedside. Pt denies any wishes to harm self, thoughts of suicide, or feelings of depression. Pt does not recall events that occurred overnight
requiring 1:1 observation to be initiated. 1:1 observation discontinued. Pt resting in bed with call trevino in reach. Daughter at bedside. Psych consult pending. Assessment documented.
[2024-12-29] MEDS: SYNTHROID 25 MCG PO (11:02)
--- NOTE | 2024-12-29 12:22 | CON.MD ---
Consultation - Medical
-
patients seen chart reviewed. discussed w nursing patient is an 84 year old woman who comes to w inc confusion perhaps secondary to recurrent uti infection. she was seen to have her hands around her neck and there was concern re si. the patient
was placed on one to one and this consult ordered. dr hartley notes she did not feel pt suicidal and dc'ed one to one. when i asked the patient if she were depressed and suicidal she said 'i spend all my time trying to live longer...i am not suicidal.'.
she denies any hx of depression or anxiety. she does enjoy her life. she is trying to make quilts for her eleven grandchildren 'hopefully before i '. she does struggle w sleep lately bc has to get up to urinate. states she is here bc she made the
mistake of not going back to her urologist and instead saw her pcp for uti and she believes the medication she was given did not really help her. appetite when she is well is okay. she denies issues w memory . she received an ativan in the wee
hours of the night and was still a little sleepy when i saw her but did quite a good job talking to me despite this. it is noted several times in the record that patient does NOT have dementia in addition to being noted that she does have dementia
past psych hx denied
medical hx patient w hx recurrent uti osteoporosis ovarian ca skin ca mild mitral regurg htn colon polyps hld paf constipation hearing loss hx small bowel obstruction hld
substance abuse denied
fh non contributory
social hx patient resides w family. she has four kids and eleven grands. 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
mse alert ox3 a little sleepy from am ativan but nl speech and thought process mood is euthymic affect normal no si aver intell insight judgment ok
dx and recommendations: Patient is not exhibiting signs or sx of depression. she does not appear to be a suicide risk she does not need one to one or psychotropic medications at this time. psych will sign off.
--- NOTE | 2024-12-29 14:42 | PN.CDI ---
CDI
- -
CDI:
Physician Documentation Request
Admit Date: 12/27/24 13:53
Dear Doctor Do,
Please review the following and provide your response in the progress notes.
Clinical Indicators:
Pt admitted with AMS/Metabolic Encephalopathy
Documented per ED, ' Slight elevation of creatinine kinase...'
Trended CPK levels are as below /Pt did get IVFs
12/27/24 12/28/24
08:01 06:34
Creatine Kinase 318 H 211 H D
Based on the above, could you clarify in the progress notes, the appropriate diagnosis, if significant, that supports the above abnormalities and additional evaluation, monitoring and/or treatment rendered:
Rhabdomyolysis
Elevated CPK levels only
Other ( please specify)
Use of terms such as suspected, likely, concern for, or probable (associated with a specific diagnosis that is being evaluated, monitored, or treated as if it exists) are acceptable and can be coded in the inpatient setting, when documented at the
time of discharge.
Thank you,
Janet Parish RN
CDI Specialist
[facility]
Please use your independent medical judgment in providing your response.
--- NOTE | 2024-12-29 14:47 | PN.CDI ---
CDI
- -
CDI:
Physician Documentation Request
Admit Date: 12/27/24 13:53
Dear Doctor Do,
Please review the following and provide your response in the progress notes.
Clinical Indicators:
Pt admitted with AMS/Metabolic Encephalopathy
BMI 15.7
Documented per nutrition consult 12/28, ' Pt unsure weight hx per admission list (score 3). Review of records shows weight of 87 lbs 14.4 oz from 08-06-2024; 82.8 lbs from November 24, 2024 external medical summary. Current weight 75 lbs 5 oz on
12-27-2024. Pt and visited; pt feels her usual weight is ~90 lbs-unsure when she last weighed this. Using 82.8 lbs from 11-24-24 external medical summary and 75 lbs 5 oz on 12-27-24, pt appears to have lost 7.8 lbs in ~1 month (9.4% wt
change)-significant. ...Estimated needs: 1190 calories (35 kcal/kg/75 lbs/wt gain), 43 gms protein (1 gm/kg/IBW); 1190 ml fluid (1 ml/kcal). During visit RD able to observe appearance of severe fat/muscle loss on orbital, tricep, clavicle, quads,
calves. Due to weight loss and observations from NFPE (nutrition-focused physical exam), pt meeting criteria for severe protein/calorie malnutrition (ASPEN/AND guidelines, chronic illness). RD to follow with pt per level of care during
hospitalization..'
Based on the above information and your assessment, which of the following most accurately represents the patient's nutritional status?
Severe protein Calorie Malnutrition
Other (Please specify)
Fischer Criteria (ACP Hospitalist 2017)
2 or more criteria must be present for either
non severe or severe malnutrition
Note that the criteria differs related to the
presence of an acute or chronic illness
Acute Illness Chronic Illness
Energy Intake Non Severe: <75% for >7 days Non Severe: <75% for >1 month
Severe: <50% for >5 days Severe: <75% for >1 month
Weight Loss Non Severe: 1-2% over 1 week Non Severe: 5% over 1 month
5% over 1 month 7.5% over 3 months
7.5% over 3 months 10% over 6 months
1 year N/A 20% over 1 year
Severe: >2% over 1 week Severe: >5% over 1 month
>5% over 1 month >7.5% over 3 months
>7.5% over 3 months >10% over 6 months
1 year N/A >20% over 1 year
Body Fat Non Severe: Mild Decrease Non Severe: Mild Loss
Severe: Moderate Decrease Severe: Severe Loss
Muscle Mass Non Severe: Mild Decrease Non Severe: Mild Loss
Severe: Moderate Decrease Severe: Severe Loss
Fluid Accumulation Non Severe: Mild Accumulation Non Severe: Mild Accumulation
Severe: Moderate to severe Severe: Moderate to severe
accumulation accumulation
Reduced Stogy Roller Strength Non Severe: N/A Non Severe: N/A
Severe: Measurably reduced Severe: Measurably reduced
Use of terms such as suspected, likely, concern for, or probable (associated with a specific diagnosis that is being evaluated, monitored, or treated as if it exists) are acceptable and can be coded in the inpatient setting, when documented at the
time of discharge.
Thank you,
Janet Parish RN
CDI Specialist
[place] Text
Please use your independent medical judgment in providing your response.
[2024-12-29 15:15] VITALS: BP 117/69
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
[2024-12-29 16:31] LABS: Vitamin B12 732 pg/ml (239-931)
--- NOTE | 2024-12-29 17:33 | CM ---
Alert awake oriented patient who lives with her Bill in a 2 story home with 5 steps to enter and bed/bathroom on first floor. Pt was appropriate and answered all questions.She said she is independent in activates of daily living.She uses no
adaptive devices.
Had [facility] in past . No SNF hx
Pharmacy [facility]
PCP Dr Kerr
PLAN Home with [facility] Ting S liaison TT referral
[2024-12-29 18:05] LABS: Vitamin B12 765 pg/ml (239-931)
[2024-12-29 23:16] VITALS: BP 108/59
[2024-12-30] MEDS: TYLENOL 650 MG PO ×2 (01:22→18:09)
[2024-12-30] MEDS: SYNTHROID 25 MCG PO (05:34)
[2024-12-30 07:05] VITALS: BP 154/92
--- NOTE | 2024-12-30 08:24 | W.PN.HOSP.TC ---
Today's Communication/Plan
-
see bold
Assessment / Plan
Assessment / Plan
HPI: 84-year-old female past medical history of dementia, (but usually can take care of self). hypertension, hyperlipidemia, lives at home presenting with concerns of worsening confusion. She was recently treated for UTI with antibiotics for the
last 3 days without improvement. She denies any specific symptoms here, and though she is confused, she is able to answer basic questioning. At the time of my interview she was comfortable and pleasantly confused. Her daughter provided most of
the history. Daughter states she was placed on nitrofuratoin.
#Acute encephalopathy -episodic confusion
#Mild cognitive impairment at baseline
She is independent in self-care at baseline
Acute confusion may be secondary to Macrobid versus other, unlikely to be due to UTI as urine analysis was negative upon admission
Improving, TSH/B12 normal
Appreciate psychiatry input, patient is not suicidal, discontinued one-to-one
Appreciate neurology input, recommend brain MRI and EEG
PT/OT rec HH
#Recent urinary tract infection
Urine analysis here unremarkable as patient was on Macrobid
Macrobid discontinued due to confusion above
Started Keflex to complete a 5-day course
#Cough
Influenza/COVID neg, chest x-ray neg
Supportive care
#Subacute hyponatremia
Patient admitted 12/10/2024 with hyponatremia of 108
Continue fluid restriction, trend sodium
#Elevated CPK levels only
CK 318 upon admission, improved to 80 with IV fluids
#Essential hypertension
Continue amlodipine 2.5 mg daily
#Severe protein Calorie Malnutrition
Encourage oral intake, started chocolate Ensure
#Hypothyroidism
Continue levothyroxine
DVT prophylaxis�subcu Lovenox
Full code
Updated daughters at bedside 12/30
Total time spent to see the patient on the floor, examine the patient, review data and lab results, discuss treatment plan with patient, nursing staff around 50 minutes.
Physical Exam
General: Frail, elderly, no acute distress
HEENT: Normocephalic, Atraumatic, EOMI, MMM
Respiratory: Clear to Auscultation bilaterally
Cardiac: Normal S1/S2, Regular Rate and Rhythm
GI: Soft, Nontender, Nondistended, Normal Bowel Sounds
Extremities: No Clubbing, Cyanosis, or Edema
Neuro: Nonfocal/Grossly Intact, oriented x 4
Psych: Calm, Cooperative
Derm: No Visible lesions
Anticipated Discharge: Within 24 hours
Subjective/Interval History
-
Date of Service: December 29, 2024
No agitation last night. Patient does report a cough. No fever, no vomiting.
Objective Data
-
Labs:
Laboratory Results
12/29/24
06:15
WBC 4.7 L
Hgb 11.0 L
Hct 32.0 L
Plt Count 286
Sodium 134 L
Potassium 3.7
Chloride 103
Carbon Dioxide 22
BUN 14
Creatinine 0.6
Glucose 76
Calcium 9.2
Vital Signs:
Vital Signs
Temp Pulse Resp BP Pulse Ox
97.9 F 75 16 117/69 98
12/29/24 15:15 12/29/24 15:15 12/29/24 15:15 12/29/24 15:15 12/29/24 15:15
I&O
12/28/24 12/29/24 12/30/24
06:59 06:59 06:59
Intake Total 500 / 500 720 / 720
Balance 500 / 500 720 / 720
[2024-12-30] MEDS: KEFLEX 500 MG PO ×3 (08:34→21:00)
[2024-12-30] MEDS: NORVASC 2.5 MG PO (08:34)
[2024-12-30] MEDS: FLUSH (NSS) 1 FLUSH IV (08:35)
[2024-12-30] MEDS: MIRALAX 17 GRAMS PO (08:35)
[2024-12-30 08:59] LABS: Blood Urea Nitrogen 15 mg/dl (7-17); Calcium 9.3 mg/dl (8.4-10.2); Carbon Dioxide 22 mmol/L (22-30); Chloride 103 mmol/L (98-107); Estimated Creatinine Clearance 36 ml/min; Glucose 83 mg/dl (70-99); Magnesium 2.2 mg/dl (1.6-2.3); Potassium 4.1 mmol/L (3.5-5.1); Sodium 130 mmol/L (135-145); eGFR > 60.00
--- NOTE | 2024-12-30 09:24 | PN.CDI ---
CDI
- -
CDI:
Physician Documentation Request
Admit Date: 12/27/24 13:53
Dear Doctor Do,
Please review the following and provide your response in the progress notes.
Clinical Indicators:
Pt admitted with AMS/Metabolic Encephalopathy
Sodium levels are as below /Pt did get IVFs
12/28/24 12/29/24 12/30/24
06:34 06:15 07:46
Sodium 134 L 134 L 130 L
Based on the above, could you clarify in the progress notes, the appropriate diagnosis, if significant, that supports the above abnormalities and additional evaluation, monitoring and/or treatment rendered:
Hyponatremia
Abnormal lab value only
Other ( please specify)
Use of terms such as suspected, likely, concern for, or probable (associated with a specific diagnosis that is being evaluated, monitored, or treated as if it exists) are acceptable and can be coded in the inpatient setting, when documented at the
time of discharge.
Thank you,
Janet Parish RN
CDI Specialist
[place] Text
Please use your independent medical judgment in providing your response.
[2024-12-30 09:59] LABS: Creatine Phosphokinase 80 U/L (30-135)
[2024-12-30] MEDS: SENOKOT-S 1 TABLET PO ×2 (12:00→20:58)
[2024-12-30 12:45] LABS: COVID-19 Antigen Negative (Negative)
[2024-12-30 13:21] LABS: Sodium 136 mmol/L (135-145)
[2024-12-30 15:20] VITALS: BP 118/64
[2024-12-30 16:20] VITALS: BP 118/64; PULSE 84; O2SAT 94
--- NOTE | 2024-12-30 16:30 | PTCARENOTE ---
Pt AAO x3, sl forgetful at times; very [place]. CASTILLO well, OOBin chair for most of shift; ambultes in room with assist x1/walker, paulo well, no c/o weakness/dizziness. VSS. On room air- pulse ox 97%, no SOB noted. Abd soft, paulo PO well. Voids in BR
without difficulty. Resting comfortably at present, no c/o. Will continue to monitor.
[2024-12-30 23:24] VITALS: BP 121/68
[2024-12-31] MEDS: SYNTHROID PO (05:10)
[2024-12-31 07:35] VITALS: BP 149/84
[2024-12-31] MEDS: MIRALAX PO (08:00)
[2024-12-31] MEDS: SENOKOT-S PO (08:00)
[2024-12-31] MEDS: NORVASC 2.5 MG PO (08:00)
[2024-12-31] MEDS: FLUSH (NSS) 1 FLUSH IV (08:04)
[2024-12-31] MEDS: KEFLEX 500 MG PO ×2 (08:04→16:32)
--- NOTE | 2024-12-31 09:07 | W.PN.HOSP.TC ---
Today's Communication/Plan
-
Discharge home with home care today
Assessment / Plan
Assessment / Plan
HPI: 84-year-old female past medical history of dementia, (but usually can take care of self). hypertension, hyperlipidemia, lives at home presenting with concerns of worsening confusion. She was recently treated for UTI with antibiotics for the
last 3 days without improvement. She denies any specific symptoms here, and though she is confused, she is able to answer basic questioning. At the time of my interview she was comfortable and pleasantly confused. Her daughter provided most of
the history. Daughter states she was placed on nitrofuratoin.
#Acute encephalopathy -episodic confusion
#Mild cognitive impairment at baseline
She is independent in self-care at baseline
Acute confusion may be secondary to Macrobid versus other, unlikely to be due to UTI as urine analysis was negative upon admission
Resolved, TSH/B12 normal
Appreciate psychiatry input, patient is not suicidal, discontinued one-to-one
Appreciate neurology input, brain MRI and EEG unremarkable
Medically stable for discharge
PT/OT rec HH
#Recent urinary tract infection
Urine analysis here unremarkable as patient was on Macrobid
Macrobid discontinued due to confusion above
Currently on Keflex, she has completed 5 days of antibiotics, does not need anymore upon discharge
#Cough
Influenza/COVID neg, chest x-ray neg
Supportive care
#Subacute hyponatremia
Patient admitted 12/10/2024 with hyponatremia of 108
Continue fluid restriction, trend sodium
#Elevated CPK levels only
CK 318 upon admission, improved to 80 with IV fluids
#Essential hypertension
Continue amlodipine 2.5 mg daily
#Severe protein Calorie Malnutrition
Encourage oral intake, started chocolate Ensure
#Hypothyroidism
Continue levothyroxine
DVT prophylaxis�subcu Lovenox
Full code
Updated daughter at bedside 12/31
Physical Exam
General: Frail, elderly, no acute distress
HEENT: Normocephalic, Atraumatic, EOMI, MMM
Respiratory: Clear to Auscultation bilaterally
Cardiac: Normal S1/S2, Regular Rate and Rhythm
GI: Soft, Nontender, Nondistended, Normal Bowel Sounds
Extremities: No Clubbing, Cyanosis, or Edema
Neuro: Nonfocal/Grossly Intact, oriented x 4
Psych: Calm, Cooperative
Derm: No Visible lesions
Anticipated Discharge: Today
Subjective/Interval History
-
Date of Service: December 31, 2024
Patient had a bowel movement yesterday. She denies chest pain, shortness of breath. She does have a cough. No fever, no vomiting.
Objective Data
-
Vital Signs:
Vital Signs
Temp Pulse Resp BP Pulse Ox
97.9 F 102 17 149/84 96
12/30/24 23:24 12/31/24 08:00 12/30/24 23:24 12/31/24 08:00 12/31/24 07:59
I&O
12/30/24 12/31/24 01/01/25
06:59 06:59 06:59
Intake Total 1020 / 1020 1080 / 1080
Balance 1020 / 1020 1080 / 1080
[2024-12-31] MEDS: TYLENOL 650 MG PO ×2 (11:19→16:31)
--- NOTE | 2024-12-31 12:18 | W.DCSUMMARY ---
Discharge Summary
Discharge Data
Date of Admission: 12/27/24
Date of Discharge: 12/31/24
-
Pending Results: No
Hospital Course
Discharge diagnosis:
Acute encephalopathy with episodic confusion
Mild cognitive impairment at baseline
Recent urinary tract infection
Subacute hyponatremia
Cough
Constipation
Hypothyroidism
Essential hypertension
Gastroesophageal reflux disease
Severe protein calorie malnutrition
Consults: Neurology, psychiatry
Brain MRI:
No acute intracranial abnormality noted.
Mild atrophy with sequelae of mild small vessel ischemic disease.
Hospital course:
84-year-old female with a past medical history of gastroesophageal reflux disease, hypertension, hypothyroidism, hyponatremia, and protein calorie malnutrition was admitted for acute encephalopathy with episodic confusion. Patient was seen in
conjunction with neurology, who diagnosed her with mild cognitive impairment. She is functional at baseline. She was started on Macrobid by her PCP prior to admission for possible urinary tract infection. Her urine analysis was negative upon
admission. She was transitioned to Keflex to complete a 5-day course for concerns that Macrobid could be contributing to her confusion.
Patient tends to get confused in the evenings and early mornings when she wakes up. One evening, nursing staff witnessed her to have her hands around her neck, saying 'I want to '. She was seen in conjunction with psychiatry. By the following
morning, her acute episode of confusion resolved. She denied suicidal ideation or intent to harm herself. She was seen in conjunction with psychiatry, who agreed that she was not suicidal.
Patient was worked up for her episodic confusion. Brain MRI and EEG showed age-appropriate changes. B12 and TSH were normal. Her confusion waxed and waned, however resolved on the day of discharge. She was seen in conjunction with PT, who
recommended home PT. Patient is medically stable and cleared by neurology for discharge. She needs to follow-up with her primary care doctor in 1 week.
Disposition: Home with home care
Discharge planning: Required 45 minutes
Discharge Plan
-
Patient Disposition: Home with Home Care
Discharge Diagnosis/Procedures: Weakness, episodic confusion, mild cognitive impairment, resolving urinary tract infection, cough, subacute hyponatremia, protein calorie malnutrition
Condition: Good
Diet: Regular, Restrict fluids to 48 oz and Supplements
Additional Diets: Increase your protein intake, you may take a protein supplement 2�3 times a day as tolerated
Activity: As tolerated
Other Services: VN and PT
Referrals:
Sandra Kerr MD [Family Provider] - in one week
Prescriptions:
Continued
polyethylene glycol 3350 [Miralax] 17 gram Powder In Packet
17 g PO DAILY Qty: 0 0RF
levothyroxine 25 mcg Tablet
25 mcg PO DAILY @ 0600 Qty: 30 0RF
Discontinued
nitrofurantoin 100 mg Capsule
100 mg PO BID
Rx Instructions:
x5days
No Action
acetaminophen [Tylenol] 325 mg Tablet
650 mg PO DAILYPRN PRN (Reason: mild pain)
amlodipine 2.5 mg tablet
2.5 mg PO NOON
Discharge Orders:
Discharge Patient (As Directed); Ordered 12/31/24
Ordered By: Clint Grigsby
Discharge Date and Time
Discharge Date/Time: 12/31/24 17:15
Print Language: ANDORRAN
[2024-12-31 12:32] VITALS: BP 142/71
--- NOTE | 2024-12-31 12:42 | EEG.RPT ---
Electroencephalogram Report
Recording
Date of EE12/30/24
Type of EEG: Routine
Length of EEG recordin mins
Done with Video Recording: Yes
Patient Status: Inpatient
Recording Conditions: Awake and Drowsy
Hyperventilation Performed: No
Photic Stimulation Performed: Yes
Report
History: she is an 84 year old woman with episodic confusion
Background: slowing of the posterior dominant rhythm, 7-8 Hz in the occipital region, symmetric and reactive
Sleep: none
Focal/rhythmic/epileptiform: none
Seizures: none
Photic stim: no background change
Impression: background slowing
Clinical correlation: mild generalized cerebral dysfunction.
--- NOTE | 2024-12-31 13:03 | CM ---
Pt for discharge to home today. VN arranged for home care services. Pt's daughter will drive her home; she will be arriving later, as she needs to pick someone up from the airport prior to pt's discharge. IMM reviewed verbally with patient; she
declined to sign, giving verbal consent, as she was trying to nap. Copy left at bedside.
Plan: Discharge to home with [facility].
--- NOTE | 2024-12-31 15:10 | CM ---
CM met with pt and her daughter to review discharge plans. Confirmed [facility] will resume after discharge.
Plan: Discharge to home with [facility]. Daughter is here to transport her home today.
--- NOTE | 2024-12-31 16:14 | PTCARENOTE ---
Pt AAO x3, forgetful , [place]. CASTILLO well, OOB to chair/ambulates to BR with assist x1/walker, VSS. On room air- no c/o SOB. Abd soft, paulo PO well. Voids in BR without difficulty. Pt resting quietly at present; awaiting DC to home.
[2024-12-31 16:18] VITALS: BP 145/78
== END 2024-12-31 17:15 | disposition home health service (06) | DRG 70 ==
LOC: 4 EAST ACU 13:53
PROVIDERS: Nurse Practitioner Family; Physician Assistant; ADMITTING PHYSICIAN Internal Medicine; ATTENDING PHYSICIAN Family Medicine; CONSULT PHYSICIAN Psychiatry & Neurology Clinical Neurophysiology; EMERGENCY PHYSICIAN Emergency Medicine; FAMILY PHYSICIAN Family Medicine; OTHER PHYSICIAN Psychiatry & Neurology Psychiatry
DX: G93.41 Metabolic encephalopathy (principal); E43 Unspecified severe protein-calorie malnutrition; E87.1 Hypo-osmolality and hyponatremia; Z68.1 Body mass index [BMI] 19.9 or less, adult; T36.8X5A Adverse effect of other systemic antibiotics, initial encounter; I10 Essential (primary) hypertension; E78.00 Pure hypercholesterolemia, unspecified; E03.9 Hypothyroidism, unspecified; R45.1 Restlessness and agitation; Z87.891 Personal history of nicotine dependence; Z87.440 Personal history of urinary (tract) infections; Z85.43 Personal history of malignant neoplasm of ovary; Z88.0 Allergy status to penicillin; Z79.890 Hormone replacement therapy; Z79.899 Other long term (current) drug therapy; Z11.52 Encounter for screening for COVID-19
CPT/HCPCS: 70450; 70551; 71046; 74177; 80048; 80053; 81003; 81015; 82550; 82607; 83605; 83690; 83735; 84295; 84443; 85025; 85027; 87040; 87070; 87205; 87502; 87811; 95816; 96361; 96374; 97116; 97129; 97162; 97166; 97530; 97535; 99285; Q9967

== ENCOUNTER 2025-01-04 08:46 | Inpatient (IN) | payer OTHER, SELFPAY ==
[2025-01-01] VITALS (7 sets, daily range): BP systolic 105–167; BP diastolic 67–95; BMI 17.5
--- NOTE | 2025-01-01 09:00 | ED.GENMED ---
History of Present Illness
General
Chief Complaint: Change in Mental Status
Source: records and ambulance crew
Exam Limitations: altered mental status
Time Seen by Provider: 01/01/25 08:55
History of Present Illness
History of Present Illness:
84yoF with a history of mild cognitive impairment, hypertension, and hyperlipidemia presenting via EMS for evaluation of altered mental status. Patient has two recent admissions. The first was from 12/10/24-12/15/24 for hyponatremia and she presented
with a sodium of 108. The second admission was from 12/27/24-12/31/24 was for altered mental status. She had an MRI brain on 12/30/24 which was negative for acute findings. She also underwent EEG which showed mild generalized cerebral dysfunction
without epileptiform activity. Notes document that she was A&Ox4 yesterday.
Patient returned home yesterday evening around 6pm. She was apparently acting normally at that time. EMS was called this morning due to an acute change in mental status. Family states that patient was confused this morning and was having a hard time
ambulating. Daughter found her in the bathroom and she was completely naked. She was pulled at her hair saying she wanted to . Patient was spitting at the paramedics during transport.
Past History
Past History
ED Past Medical History: Cancer (ovarian), HTN, Hypercholesterolemia, Valvular disease (Mild tricuspid regurgitation) and Other (valve disorder)
ED Past Surgical History: Bowel resection (Small bowel resection for small bowel obstruction January 2017) and Other (Hysterectomy for ovarian CA, bilateral caataract surgery, sinus surgery, left inguinal hernia repair April 2018)
Social History
Tobacco: Former smoker
Alcohol: None
Drug: None
Personal:
Living: with family
Employment: Retired
Family History
Family History: Hypertension
Phy Exam
Physical Exam
Physical Exam:
Patient agitated, pulling at hair, yelling 'I have too much children at home. I'm sorry Cristiano' repeatedly
General Physical Exam
General Presentation: well appearing
General Skin: warm and dry
General Habitus: elderly
General Mental: anxious
Eye Exam
Eye Exam: PERRL
Cardiovascular Exam
Cardiovascular Exam: regular rate/rhythm
Pulmonary Exam
Pulmonary Exam: lungs clear, no respiratory distress, no rales, no crackles and no rhonchi
Neurological Exam
Neurological Exam: alert
[place] Coma Scale
Eye Opening: Spontaneous
Verbal Response: Confused
Motor Response: Obeys Commands
GCS Total Score: 14
Skin Exam
Skin Exam: normal color and warm/dry
Psychiatric Exam
Psychiatric Exam: agitated and anxious
Sepsis
Sepsis Screening
Sepsis Assessment: Sepsis Ruled Out
Sepsis Screen
Sepsis Screen: Sepsis Ruled Out
Date: 01/01/25
Time: 16:56
Course
Orders/Labs/Results
Orders:
Orders
01/01/25 08:57
Electrocardiogram (*1) Urgent
Reason for Study: Other
Other Reason for Exam: AMS
CT Head W/o Iv Contrast Urgent
Comment:
Reason For Exam: AMS
EKG- Treatment ONCE
01/01/25 09:28
Complete Blood Count/With Diff Urgent
Comprehensive Metabolic Panel Urgent
Magnesium Urgent
TSH Reflex To Free T4 Urgent
Troponin I Urgent
Urinalysis Reflex To Culture Urgent
Date Specimen was Collected: 01/01/25
Time Specimen was Collected: 09:11
Urine Microscopic Reflex Cult Urgent
01/01/25 09:51
Speech Screening from [facility] Routine
01/01/25 Lunch
Regular
Reason for opting out of [facility] order writing: Provider Decision
01/01/25 10:34
Case Management Consult ONCE
Case Management Consult: Discharge Planning
01/01/25 11:30
NEUROLOGY CONSULT Routine
Consulting Provider: Mahendra Veronica
Was physician already notified: Yes
01/01/25 12:15
Quetiapine Fumarate [Seroquel] 12.5 mg PO DAILY PRN
01/01/25 12:54
Admit/Transfer Patient As Directed
Co-Sign Provider:
Level of Care: Observation services
Assign to:: Medical/Surgical
Physician / Group: flower hartley
Diagnosis: Episodic confusion
Reason for Hospitalization: Episodic confusion
PRN Pain Medication Management As Directed
May give lesser potent ordered pain med per pt: Yes
preference::
Protocol:: Medication orders for pain may be administered in a
manner that supports deferring to patient preference
when the pt is:
- Requesting an ordered lesser potent pain medication.
Least to most potent pain medications are defined
as: acetaminophen < NSAID < tramadol < opioids
(morphine, oxycodone, hydromorphone).
- Requesting a lesser dose of the same medication IF
ORDERED.
- Requesting a less intrusive route of administration
if both routes are prescribed by the provider (PO <
IV).
01/01/25 12:55
Code Status As Directed
Resuscitation Status: Do not resuscitate
Reached after discussion with pt or family/Healthcare POA: Yes
01/01/25 12:56
DNR Bracelet Application ONCE
01/01/25 15:59
0.9% Sodium Chloride 1000 ml [Nss] 1,000 ml IV 50 mls/hr
Acetaminophen [Tylenol] 650 mg PO DAILYPRN PRN
Mag Hydrox/Al Hydrox/Simeth [Maalox] 30 ml PO Q6HPRN PRN
Ondansetron Injectable [Zofran] 4 mg IV Q6HPRN PRN
01/01/25 15:59
Activity As Directed
Activity Level: Ambulate
Vital Signs As Directed
Frequency: Per unit guidelines
Ot Eval And Treat Routine
Pt Eval And Treat Routine
Activity Level: Ambulate
DX Deep Vein Thrombosis Video Routine
01/01/25 18:00
Enoxaparin Sodium [Lovenox] 30 mg SC QPM
01/02/25 06:00
Basic Metabolic Panel IN AM
Levothyroxine [Synthroid] 25 mcg PO DAILY@0600
01/02/25 08:00
Polyethylene Glycol Powder [Miralax] 17 grams PO DAILY
01/02/25 12:00
Amlodipine [Norvasc] 2.5 mg PO NOON
Abnormal Lab Results
01/01/25
09:28
RBC 3.90 L 10^6/uL
(4.20-5.40)
Hct 36.4 L %
(37.0-47.0)
MCH 31.8 H pg
(27.0-31.0)
Absolute Lymphs (auto) 1.1 L 10^3/uL
(1.2-3.4)
Absolute Monos (auto) 0.8 H 10^3/uL
(0.1-0.6)
Lymphocytes % 13.8 L %
(20.5-51.1)
Monocytes % 10.2 H %
(1.7-9.3)
BUN 23 H mg/dl
(7-17)
Creatinine 0.5 L mg/dL
(0.6-1.0)
Glucose 109 H mg/dl
(70-99)
AST 45 H U/L
(14-36)
Ur Occult Blood Reflex 2+ A
(Negative)
Urine RBC 3-6 A /HPF
(0-2)
Urine Albumin (Reflex) 1+ A
(Neg - Trace)
01/01/25 09:28
01/01/25 09:28
Vital Signs
Initial and Last Documented VS:
Initial Vital Signs
Pulse Resp
94 19
01/01/25 08:57 01/01/25 08:57
Last Documented Vital Signs
Temp Pulse Resp BP Pulse Ox
97.6 F 96 16 142/67 99
01/01/25 09:33 01/01/25 15:40 01/01/25 15:40 01/01/25 15:40 01/01/25 15:40
MDM/Problems Addressed
Differential Diagnosis Includes:
84yoF here with AMS. Just discharged yesterday for an admission with a similar presentation. Was lucid last night but became confused again this morning. VSS. Patient agitated on arrival and pulling at hair and yelling. Differential diagnosis
includes but is not limited to: Dementia with behavioral disturbance, UTI, electrolyte abnormality, central pontine myelinolysis, less likely CVA
Initial ED plan: Check cardiac labs, TSH, UA, EKG, and CT head.
*EKG
Interpreted by ED Provider?: Yes
EKG Intrepretation Date: 01/01/25
Heart Rate: 75
Rate: normal
Rhythm: sinus
[place]: normal axis
Interval: normal interval
QRS Pattern: normal QRS
Ischemia: no ischemia
*Critical Care Note
Total Time (30-74mins, 75-104mins- exclusive of procedures): Not Applicable
Update Note
Update Note:
Labs overall unremarkable. Sodium is within normal limits. No overt signs of infection on urinalysis. CT head negative for acute findings. Patient's agitation improved on reassessment although she continues to be confused and tangential.
Daughter states this is much different than when she was discharged yesterday. Will admit for further evaluation and management.
ED Attending Note
-
Portions of this chart may have been created with voice recognition software.� Occasional wrong word or��sound alike� substitutions may have occurred due to the inherent limitations of voice recognition software.
Discharge Plan
Departure
Patient Disposition: Admit
Date of Disposition: 01/01/25
Time of Disposition: 10:44
Presentation/result/management discussed w/ accepting MD/DO: Hospitalist
Discharge Problem:
Altered mental status
Interventions
Interventions:
*Risk Screen - Suicide Last Done: 01/01/25 09:34
*General Assessment Last Done: 01/01/25 09:34
*Neglect/Abuse Screening Last Done: 01/01/25 09:34
ED- Fall Risk Assessment Last Done: 01/01/25 09:34
*ED COVID-19 Vaccine History Last Done: 01/01/25 09:34
ED- Pulmonary Assessment Last Done: 01/01/25 15:41
ED- Neurological Assessment Last Done: 01/01/25 15:41
ED- Cardiac Assessment Last Done: 01/01/25 09:34
ED Swallowing Screen Last Done: 01/01/25 09:50
[2025-01-01 09:38] LABS: Urine Albumin 1+ (Neg - Trace); Urine Bilirubin Negative (Negative); Urine Character Clear (Clear); Urine Color Yellow; Urine Glucose Negative (Negative); Urine Ketone Negative (Negative); Urine Leukocyte Negative (Negative); Urine Nitrite Negative (Negative); Urine Occult Blood 2+ (Negative); Urine Urobilinogen Negative (Neg - 1+)
[2025-01-01 09:42] LABS: % Basophils 0.8 % (0-2); % Eosinophils 2.4 % (0-6); % Immature Granulocytes 0.3 % (0-0.5); % Lymphocytes 13.8 % (20.5-51.1); % Monocytes 10.2 % (1.7-9.3); % Neutrophils 72.5 % (42.2-75.2); Absolute Basophils 0.1 10^3/uL (0-0.2); Absolute Eosinophils 0.2 10^3/uL (0-0.7); Absolute Lymphocytes 1.1 10^3/uL (1.2-3.4); Absolute Monocytes 0.8 10^3/uL (0.1-0.6); Absolute Neutrophils 5.8 10^3/uL (1.4-6.5); Hematocrit 36.4 % (37.0-47.0); Hemoglobin 12.4 g/dL (12.0-16.0); Mean Corp Hgb Conc. 34.1 g/dL (33.0-37.0); Mean Corpuscular Hgb 31.8 pg (27.0-31.0); Mean Corpuscular Volume 93.3 fL (81.0-99.0); Mean Platelet Volume 9.7 fL (7.4-10.4); Nucleated Red Blood Cells % 0 %; Platelet Count 299 10^3/uL (130-400); Red Cell Dist. Width 14.3 % (11.5-14.5); White Blood Cell Count 7.9 10^3/uL (4.8-10.8)
[2025-01-01 09:52] LABS: ALT (SGPT) 32 U/L (0-35); AST (SGOT) 45 U/L (14-36); Albumin 4.3 g/dl (3.5-5.0); Alkaline Phosphatase 59 U/L (38-126); Blood Urea Nitrogen 23 mg/dl (7-17); Carbon Dioxide 27 mmol/L (22-30); Chloride 103 mmol/L (98-107); Estimated Creatinine Clearance 40 ml/min; Glucose 109 mg/dl (70-99); Magnesium 2.2 mg/dl (1.6-2.3); Potassium 4.7 mmol/L (3.5-5.1); Sodium 140 mmol/L (135-145); Total Bilirubin 0.9 mg/dl (0.2-1.3); eGFR > 60.00
[2025-01-01 10:04] LABS: Troponin I < 0.012 ng/ml
[2025-01-01 10:14] LABS: Urine Amorphous Seen
[2025-01-01 10:22] LABS: TSH Reflex To Free T4 3.01 uIU/ml (0.47-4.68)
--- NOTE | 2025-01-01 11:33 | EDRN ---
Addendum entered by Alice Ledbetter RN 01/01/25 11:34:
Daughter was asking for sedation of pt at that time. Radha JENNINGS was informed.
Original Note:
Pt is agitated again and using unplugged phone at this time. Pt was attempting to get OOB and taking all her leads and BP cuff off.
--- NOTE | 2025-01-01 12:24 | EDRN ---
Dr. Grigsby w/ family at this time.
--- NOTE | 2025-01-01 14:02 | EDRN ---
Pt pulled all leads off prior to falling asleep. Pt still sleeping and this RN will let her sleep as she exerted a lot of energy prior to falling asleep. Family, daughter and son, left at this time to get some lunch.
--- NOTE | 2025-01-01 15:42 | EDRN ---
Pt calling for 'Blue' repeatedly. Family believe pt asking for Purewick to go to the bathroom, she used it earlier and took it off. Purewick reapplied and diaper placed. Gown put back on and pt covered with warm blankets. Pt calling out for
'Shruthi. I need the baby!' Pt talking about a dog, says it is a girl dog but cannot remember the name. Pt requested cold water, this RN gave pt small sip and she gargled with it and spit it out.
--- NOTE | 2025-01-01 15:50 | EDRN ---
TT to provider for IV agitation medication since pt would not swallow water provided.
--- NOTE | 2025-01-01 16:08 | CM ---
Initial Assessment and Case Management Consult completed
Pharmacy verified: [facility] @ [address] [facility], [place], [place]
CM met with patient's spouse and daughter, Genesis; DEL REAL form explained and signed @ 1530.
Per daughter, patient and her live in a split level home; 4 steps to enter; 7 steps between floors; powder room on lower level; patient's bedroom and bathroom on upper level
PLOF: wears hearing aids; at baseline prior to November 2024, patient was independent with personal care and ADLs; ambulated without a device; driving
No history of SNF utilization
Daughter reported that patient was hospitalized in November 2024 for low sodium; discharged with home health services from [facility]
She was hospitalized again on December 22 for a UTI; was treated and discharged with a [facility];
On December 27, they brought her to the ED again; discharged yesterday, 12/31; she was up and walking yesterday
Patient returned to the ED this morning with agitation and confusion
Discharge plan to be determined; if patient does not quality for SNF, CM suggested to spouse and daughter that they contact Evangelina Lopez #[phone] @ [facility] for help with personal/memory care placement
[2025-01-01] MEDS: NSS 1000 IV (16:09)
[2025-01-01] MEDS: HALDOL 1 MG IV (16:10)
--- NOTE | 2025-01-01 16:49 | CON.NEURO ---
Neuro Assessment/Plan
Assessment
84 year old woman with history consistent with MCI, presenting with multiple episodes of delirium, today appears unprovoked, and it's not entirely clear whether the prior admission for delirium was provoked or not. Patient with substantial
fluctuations, and is at times lucid
Believe that she is progressing towards dementia.
Had Head CT, Brain MRI, and EEG that does not show an alternative explanation
Spoke with and dtr, people in this situation often compensate for a long time, and tend to have preserved social skills until late into the disease, smooth over any lapses.
Plan
Will restart Seroquel 12.5 mg PRN
will consider Aricept/Namenda
family considering placement, and expect that patient will become lucid again enough to be part of the conversation
would admit patient to facilitate this
Consultation
Order
Date of Consultation: 01/01/25
Requesting Provider: Earline Grigsby
Reason for Consult: AMS
Subjective/Objective
Subjective Data
Date of Service: January 01, 2025
She is an 84 year old woman, recently admitted for AMS, ?UTI vs antibiotic toxicity. During the prior admission, the description was of someone with progressive cognitive difficulties, without evidence of functional decline. At the time of my
evaluation, the patient was fully oriented, spoke clearly, and I made a diagnosis of mild cognitive impairment. I suspect the etiology to be Alzheimer's. The patient was discharged home. This morning the patient was confused, had difficulty
ambulating, daughter found her in bathroom naked, pulling her hair saying she wanted to . She spit at paramedics during transport.
In the ED, patient restless, confused.
Objective Data
Vital Signs
Temp Pulse Resp BP Pulse Ox
36.4 C 96 16 142/67 99
01/01/25 09:33 01/01/25 15:40 01/01/25 15:40 01/01/25 15:40 01/01/25 15:40
Lab Results
01/01/25 09:28
01/01/25 09:28
Sodium 140 mmol/L (135-145) 01/01/25 09:28
Potassium 4.7 mmol/L (3.5-5.1) 01/01/25 09:28
BUN 23 mg/dl (7-17) H 01/01/25 09:
Glucose 109 mg/dl (70-99) H 01/01/25 09:
Calcium 10.0 mg/dl (8.4-10.2) 01/01/25 09:28
Patient Allergies
Arnica (Arnica [place]) Allergy (Verified 12/27/24 07:56)
severe hypertension
barium sulfate Allergy (Verified 12/27/24 07:56)
Unknown
latex Allergy (Verified 12/27/24 07:56)
Unknown
Penicillins Allergy (Verified 12/27/24 07:56)
Rash
Physical Exam
-
restless, confused, disoriented
no insight into present situation
moving all extremities anti gravity
Medications
-
Active Medications
Generic Name Dose Route Start Last Admin
Trade Name Freq PRN Reason Stop Dose Admin
Acetaminophen 650 mg 01/01/25 15:59
Acetaminophen 325 Mg Tablet PO 01/29/25 15:58
DAILYPRN PRN
mild pain
Al Hydrox/Mg Hydrox/Simethicone 30 ml 01/01/25 15:59
Mag/Al/Simethicone Suspension 30 Ml Cup PO 01/29/25 15:58
Q6HPRN PRN
Heartburn
Amlodipine Besylate 2.5 mg 01/02/25 12:00
Amlodipine 2.5 Mg Tablet PO 01/30/25 11:59
NOON ANGE
Enoxaparin Sodium 30 mg 01/01/25 18:00
Enoxaparin Sodium 30 Mg/0.3 Ml Syringe SC 01/29/25 17:59
QPM ANGE
Haloperidol Lactate 1 mg 01/01/25 15:56 01/01/25 16:10
Haloperidol 5 Mg/Ml 1 Ml Vial IV 01/29/25 15:55 1 mg
Q4HPRN PRN Administration
agitation
Sodium Chloride 1,000 mls @ 50 mls/hr 01/01/25 16:00 01/01/25 16:09
Nss IV 1,000 mls
.Q20H ANGE Administration
Levothyroxine Sodium 25 mcg 01/02/25 06:00
Levothyroxine 25 Mcg Tablet PO 01/30/25 05:59
DAILY@0600 ANGE
Ondansetron HCl 4 mg 01/01/25 15:59
Ondansetron 4 Mg/2 Ml Vial IV 01/29/25 15:58
Q6HPRN PRN
nausea and vomiting
Polyethylene Glycol 17 grams 01/02/25 08:00
Polyethylene Glycol Powder 17 Grams Packet PO 01/30/25 07:59
DAILY ANGE
Quetiapine Fumarate 12.5 mg 01/01/25 12:15
Quetiapine 25 Mg Tablet PO 01/29/25 12:14
DAILY PRN
agitation
Home Medications
�Medication �Instructions �Recorded
polyethylene glycol 3350 17 gram 17 g PO DAILY Gastrointestinal 08/10/24
oral powder packet (Miralax) issue #0 ea
levothyroxine 25 mcg tablet 25 mcg PO DAILY @ 0600 #30 tabs 12/15/24
acetaminophen 325 mg tablet 650 mg PO DAILYPRN PRN mild pain 01/01/25
(Tylenol)
amlodipine 2.5 mg tablet 2.5 mg PO NOON Blood pressure 01/01/25
--- NOTE | 2025-01-01 16:58 | HPS.HSE ---
Family Physician
-
Family Physician: Sandra Kerr
Chief Complaint
-
Altered mental status
History of Present Illness
84-year-old female with a past medical history of mild cognitive impairment, hypothyroidism, hypertension, and hyponatremia presents with altered mental status this morning. Patient was admitted earlier this week for altered mental status. MRI and
EEG were unrevealing. She was seen by neurology, who diagnosed her with mild cognitive impairment. She was seen by physical therapy, who recommended home care. She was alert, awake and oriented x 4 yesterday. This morning, family reports patient
woke up confused. She was found in the bathroom naked, and tells the family she is going to . Currently she denies chest pain, denies shortness of breath. No abdominal pain, no nausea, no vomiting. No fever, no dysuria.
Medical History
Past Medical History
Past Medical History: Reports Other
Additional Past Medical History:
Cancer (ovarian)
Essential HTN
Hypercholesterolemia
Valvular disease (Mild tricuspid regurgitation)
Hyponatremia
Malnutrition
Mild cognitive impairment
Past Surgical History: Reports Other
Additional Past Surgical History:
Bowel resection (Small bowel resection for small bowel obstruction January 2017)
Hysterectomy for ovarian CA,
Bilateral caataract surgery,
Sinus surgery,
Left inguinal hernia repair April 2018
Social History
Tobacco: Non-smoker
Alcohol: None
Drug: None
Personal:
Living: With Family
Family History
Family History: Not pertinent
Allergies / Home Medications
Allergies reflects when Allergies were last updated in [facility].
Home Medications with original date entered in [facility]
Allergy/Medication List:
Allergies
Allergy/AdvReac Type Severity Reaction Status Date / Time
Arnica (Arnica [place]) Allergy severe Verified 12/27/24 07:56
hypertension
barium sulfate Allergy Unknown Verified 12/27/24 07:56
latex Allergy Unknown Verified 12/27/24 07:56
Penicillins Allergy Rash Verified 12/27/24 07:56
Home Medications Table - record
�Medication �Instructions �Recorded �Confirmed
polyethylene glycol 3350 17 gram 17 g PO DAILY Gastrointestinal 08/10/24 01/01/25
oral powder packet (Miralax) issue #0 ea
levothyroxine 25 mcg tablet 25 mcg PO DAILY @ 0600 #30 tabs 12/15/24 01/01/25
acetaminophen 325 mg tablet 650 mg PO DAILYPRN PRN mild pain 01/01/25 01/01/25
(Tylenol)
amlodipine 2.5 mg tablet 2.5 mg PO NOON Blood pressure 01/01/25 01/01/25
Review of Systems
-
A 12 point ROS was completed and negative except as noted: Yes
Physical Exam
Vital Signs
Vital Signs
Temp Pulse Resp BP Pulse Ox
97.6 F 96 16 142/67 99
01/01/25 09:33 01/01/25 15:40 01/01/25 15:40 01/01/25 15:40 01/01/25 15:40
Physical Exam
General: No Apparent Distress
HEENT: NormoCephalic, Anicteric and Moist mucous membranes
Respiratory: Clear
Cardiac: S1/S2
GI: Soft, Non Tender, Non Distended and Normal Bowel Sounds
Musculoskeletal: No Clubbing, No Cyanosis and No Edema
Skin: Warm and Dry
Neuro: Awake and Alert
Psych: Confused, Agitated and Other (Delusional)
Laboratory Results
-
01/01/25 09:28
01/01/25 09:28
Laboratory Results
Total Bilirubin 0.9 mg/dl (0.2-1.3) 01/01/25 09:28
AST 45 U/L (14-36) H 01/01/25 09:28
ALT 32 U/L (0-35) 01/01/25 09:28
Alkaline Phosphatase 59 U/L (38-126) 01/01/25 09:28
Troponin I < 0.012 ng/ml 01/01/25 09:28
Impression/Plan
-
HPI: 84-year-old female with a past medical history of mild cognitive impairment, hypothyroidism, hypertension, and hyponatremia presents with altered mental status this morning. Patient was admitted earlier this week for altered mental status.
MRI and EEG were unrevealing. She was seen by neurology, who diagnosed her with mild cognitive impairment. She was seen by physical therapy, who recommended home care. She was alert, awake and oriented x 4 yesterday. This morning, family reports
patient woke up confused. She was found in the bathroom naked, and tells the family she is going to . Currently she denies chest pain, denies shortness of breath. No abdominal pain, no nausea, no vomiting. No fever, no dysuria.
#Acute encephalopathy -episodic confusion
#Mild cognitive impairment at baseline
She is independent in self-care at baseline
TSH/B12 normal. Brain MRI and EEG unremarkable. UA/CXR/Head CT all neg
Appreciate neurology input, patient likely has new onset dementia and will need to be placed if family cannot handle her at home
Place in observation, give Seroquel as needed, IV Haldol as needed
Consult PT/OT
#Dehydration
Gentle IV fluids
#Recent urinary tract infection
Resolved s/p 5 days of antibiotics
UA in the ER negative
#Cough
Influenza/COVID neg, chest x-ray neg
Supportive care
#Subacute hyponatremia
Patient admitted 12/10/2024 with hyponatremia of 108
Monitor off fluid restriction for now as her sodium is 140
#Essential hypertension
Continue amlodipine 2.5 mg daily
#Severe protein Calorie Malnutrition
Encourage oral intake, start chocolate Ensure
#Hypothyroidism
TSH normal, continue levothyroxine
DVT prophylaxis�subcu Lovenox
Full code
Updated family at bedside 01/01
Total time spent to see the patient on the floor, examine the patient, review data and lab results, discuss treatment plan with patient, nursing staff around 76 minutes.
--- NOTE | 2025-01-01 17:34 | EDRN ---
Pt quieter, not calling out. Pt removed her gown, diaper, purewick, slipper socks and most of linens from stretcher. Family said pt had to go to the bathroom. Pt cooperative with log rolling on her own to put new sheet on stretcher. This RN
reapplied Purewick (there is urine in container from earlier), diaper, gown. Numerous blankets applied on pt.
[2025-01-01] MEDS: LOVENOX 30 MG SC (18:47)
[2025-01-01] MEDS: SEROQUEL 12.5 MG PO (20:25)
[2025-01-01] MEDS: TYLENOL 650 MG PO (20:25)
[2025-01-02] MEDS: NSS 1000 IV (03:33)
[2025-01-02] MEDS: LIDOCAINE 4% PATCH 1 PATCH TOPICAL (04:57)
[2025-01-02] MEDS: SYNTHROID PO (04:59)
[2025-01-02 07:35] VITALS: BP 135/75
--- NOTE | 2025-01-02 07:47 | W.PN.HOSP.TC ---
Today's Communication/Plan
-
see bold
Assessment / Plan
Assessment / Plan
HPI: 84-year-old female with a past medical history of mild cognitive impairment, hypothyroidism, hypertension, and hyponatremia presents with altered mental status this morning. Patient was admitted earlier this week for altered mental status.
MRI and EEG were unrevealing. She was seen by neurology, who diagnosed her with mild cognitive impairment. She was seen by physical therapy, who recommended home care. She was alert, awake and oriented x 4 yesterday. This morning, family reports
patient woke up confused. She was found in the bathroom naked, and tells the family she is going to . Currently she denies chest pain, denies shortness of breath. No abdominal pain, no nausea, no vomiting. No fever, no dysuria.
#Dementia with behavioral disturbance
Suspect episodic confusion due to
Patient admits to memory impairment, but has been hiding it from her family
She is independent in self-care at baseline
TSH/B12 normal. Brain MRI and EEG unremarkable. UA/CXR/Head CT all neg
Appreciate neurology input, start Namenda and Aricept
Give Seroquel as needed, IV Haldol as needed
PT/OT, family looking into placement
#Dehydration
Gentle IV fluids
#Recent urinary tract infection
Resolved s/p 5 days of antibiotics
UA in the ER negative
#Cough
Influenza/COVID neg, chest x-ray neg
Supportive care
#Subacute hyponatremia
Patient admitted 12/10/2024 with hyponatremia of 108
Monitor off fluid restriction for now as her sodium is 140
#Essential hypertension
Continue amlodipine 2.5 mg daily
#Severe protein Calorie Malnutrition
Encourage oral intake, started chocolate Ensure
#Hypothyroidism
TSH normal, continue levothyroxine
DVT prophylaxis�subcu Lovenox
Full code
Updated family at bedside 01/02
Total time spent to see the patient on the floor, examine the patient, review data and lab results, discuss treatment plan with patient, nursing staff around 51 minutes.
Physical Exam
General: Frail, elderly, no acute distress
HEENT: Normocephalic, Atraumatic, EOMI, MMM
Respiratory: Clear to Auscultation bilaterally
Cardiac: Normal S1/S2, Regular Rate and Rhythm
GI: Soft, Nontender, Nondistended, Normal Bowel Sounds
Extremities: No Clubbing, Cyanosis, or Edema
Neuro: Nonfocal/Grossly Intact, oriented to person and place but not time
Psych: Agitated, intermittent aggression noted
Anticipated Discharge: > 48 hours
Subjective/Interval History
-
Date of Service: January 02, 2025
Patient is agitated, confused this morning. She complains of her chronic back pain. No fever, no vomiting.
Objective Data
-
Labs:
Laboratory Results
01/02/25
06:00
Sodium Pending
Potassium Pending
Chloride Pending
Carbon Dioxide Pending
BUN Pending
Creatinine Pending
Glucose Pending
Calcium Pending
Vital Signs:
Vital Signs
Temp Pulse Resp BP Pulse Ox
97.7 F 79 19 155/88 99
01/01/25 23:46 01/01/25 23:46 01/01/25 23:46 01/01/25 23:46 01/01/25 23:46
I&O
01/01/25 01/02/25 01/03/25
06:59 06:59 06:59
Intake Total 520 / 520
Output Total 300 / 300
Balance 220 / 220
[2025-01-02] MEDS: SYNTHROID 25 MCG PO (08:59)
[2025-01-02] MEDS: MIRALAX 17 GRAMS PO (08:59)
[2025-01-02] MEDS: HALDOL 1 MG IV (09:24)
--- NOTE | 2025-01-02 10:25 | W.PN.NEURO.1 ---
Today's Communication / Plan
-
patient and family coming to terms dx
Start Aricept 5 mg BID
Start Namenda 10 mg BID
Neuro Assessment/Plan
Assessment
84 year old woman with history consistent with MCI, presenting with multiple episodes of delirium, today appears unprovoked, and it's not entirely clear whether the prior admission for delirium was provoked or not. Patient with substantial
fluctuations, and is at times lucid
Believe that she is progressing towards dementia.
Had Head CT, Brain MRI, and EEG that does not show an alternative explanation
Spoke with and dtr, people in this situation often compensate for a long time, and tend to have preserved social skills until late into the disease, smooth over any lapses.
Plan
Will restart Seroquel 12.5 mg PRN
start Aricept 5 BID, Namenda 10 BID
agree with placement dementia unit
Subjective/Objective
Subjective Data
Date of Service: January 02, 2025
seen this morning ~10 am dtr at bedside. patient more lucid. She admits that she has been having memory problems for a long time, and that she did the totally normal thing of hiding it from her family because she didn't want to be a burden to them,
and that she is not able to hide it anymore. She is coming to terms with the fact that she will be moving to an 'insane asylum' her words not mine. They are understanding that there will be a lot of fluctuations,
Objective Data
Vital Signs
Temp Pulse Resp BP Pulse Ox
36.9 C 76 16 135/75 99
01/02/25 07:35 01/02/25 07:35 01/02/25 07:35 01/02/25 07:35 01/02/25 07:35
Lab Results
01/01/25 09:28
01/02/25 06:00
Sodium Cancelled 01/02/25 06:00
Potassium Cancelled 01/02/25 06:00
BUN Cancelled 01/02/25 06:00
Glucose Cancelled 01/02/25 06:00
Calcium Cancelled 01/02/25 06:00
Patient Allergies
Arnica (Arnica jesseana) Allergy (Verified 12/27/24 07:56)
severe hypertension
barium sulfate Allergy (Verified 12/27/24 07:56)
Unknown
latex Allergy (Verified 12/27/24 07:56)
Unknown
Penicillins Allergy (Verified 12/27/24 07:56)
Rash
[2025-01-02] MEDS: ARICEPT 5 MG PO ×2 (11:03→22:35)
[2025-01-02] MEDS: NORVASC 2.5 MG PO (11:03)
[2025-01-02] MEDS: NAMENDA 10 MG PO ×2 (11:03→22:35)
[2025-01-02] MEDS: SEROQUEL 25 MG PO (11:03)
--- NOTE | 2025-01-02 13:12 | CM ---
CM met with pt's daughter and son in law at length to discuss dispo and educated on levels of care.
PT eval is pending.
SNF list provided and reviewed.
They plan to tour [facility] today and have been in conversation with [facility]. They have also put a call into [facility] pending return call.
Both in agreement that it is not safe to dc home to spouse with this level of confusion. Daughter reports being unable to care for her at this time.
[2025-01-02 15:28] VITALS: BP 133/94
[2025-01-02] MEDS: TYLENOL 650 MG PO (15:59)
[2025-01-02] MEDS: LOVENOX SC ×2 (17:23→17:25)
[2025-01-02] MEDS: HALDOL 2 MG IV (17:36)
[2025-01-02] MEDS: LIDOCAINE 4% PATCH TOPICAL (22:36)
[2025-01-02 23:23] VITALS: BP 147/83
[2025-01-03] MEDS: TYLENOL 650 MG PO (00:03)
[2025-01-03] MEDS: HALDOL 2 MG IV (00:04)
--- NOTE | 2025-01-03 01:44 | PTCARENOTE ---
01/03: Restraint ordered 01:17. 01:40 nonviolent b/lat soft limb wrist restraints applied, 4 bed rails up as per Sally curran NP. attempted redirection with music, verbal redirection, and haldol. Pt pulling at hair, ripping personal items and
pillows, up out of bed with bed and chair alarms. Patient tolerating restraints at this time.
[2025-01-03] MEDS: SYNTHROID PO (06:07)
[2025-01-03 07:45] VITALS: BP 145/83
--- NOTE | 2025-01-03 08:00 | PTCARENOTE ---
Pt at times will pull her hair or pull sheets over her head. Today appears to be less hyper. She still is paranoid about what meds she is getting and will refuse to take them. Pt did not sleep last night reports assembler 1st shift RN. Restraints removed
this am for pt to eat her breakfast. Pt calm and wanting to eat. 1:1 provided for pt safety and to coordinate her care. Will cont to monitor.
--- NOTE | 2025-01-03 08:37 | W.PN.HOSP.TC ---
Today's Communication/Plan
-
see bold
Assessment / Plan
Assessment / Plan
HPI: 84-year-old female with a past medical history of mild cognitive impairment, hypothyroidism, hypertension, and hyponatremia presents with altered mental status this morning. Patient was admitted earlier this week for altered mental status.
MRI and EEG were unrevealing. She was seen by neurology, who diagnosed her with mild cognitive impairment. She was seen by physical therapy, who recommended home care. She was alert, awake and oriented x 4 yesterday. This morning, family reports
patient woke up confused. She was found in the bathroom naked, and tells the family she is going to . Currently she denies chest pain, denies shortness of breath. No abdominal pain, no nausea, no vomiting. No fever, no dysuria.
#Dementia with behavioral disturbance
Suspect episodic confusion due to
Patient admits to memory impairment, but has been hiding it from her family
She is independent in self-care at baseline
TSH/B12 normal. Brain MRI and EEG unremarkable. UA/CXR/Head CT all neg
Appreciate neurology input, started Namenda and Aricept
Change Seroquel to 25 mg 3 times daily, start Zyprexa 10 mg IM daily as needed as IV Haldol is not working
Consult psychiatry
PT/OT, family looking into placement
#Hypothyroidism
TSH now normal with starting low-dose levothyroxine
Daughter concerned that patient's confusion coincided with starting low-dose levothyroxine a few weeks ago
Daughter requesting to stop levothyroxine, will stop per her request
#Dehydration
Encourage oral intake
#Recent urinary tract infection
Resolved s/p 5 days of antibiotics
UA in the ER negative
#Cough
Influenza/COVID neg, chest x-ray neg
Supportive care
#Subacute hyponatremia
Patient admitted 12/10/2024 with hyponatremia of 108
Monitor off fluid restriction for now as her sodium is 140
#Essential hypertension
Continue amlodipine 2.5 mg daily
#Severe protein Calorie Malnutrition
Encourage oral intake, started chocolate Ensure
DVT prophylaxis�subcu Lovenox
Full code
Updated family at bedside 01/03
Total time spent to see the patient on the floor, examine the patient, review data and lab results, discuss treatment plan with patient, nursing staff around 50 minutes.
Physical Exam
General: Frail, elderly, no acute distress
HEENT: Normocephalic, Atraumatic, EOMI, MMM
Respiratory: Clear to Auscultation bilaterally
Cardiac: Normal S1/S2, Regular Rate and Rhythm
GI: Soft, Nontender, Nondistended, Normal Bowel Sounds
Extremities: No Clubbing, Cyanosis, or Edema
Neuro: Nonfocal/Grossly Intact, oriented to person and place but not time
Psych: Agitated, intermittent aggression noted
Anticipated Discharge: 24 - 48 hours
Subjective/Interval History
-
Date of Service: January 03, 2025
Patient agitated and aggressive overnight, requiring restraints. She remains confused today. No fever, no vomiting.
Objective Data
-
Vital Signs:
Vital Signs
Temp Pulse Resp BP Pulse Ox
98.6 F 91 19 147/83 98
01/02/25 23:23 01/02/25 23:23 01/02/25 23:23 01/02/25 23:23 01/02/25 23:23
I&O
01/02/25 01/03/25 01/04/25
06:59 06:59 06:59
Intake Total 520 / 520 1129 / 1130
Output Total 300 / 300
Balance 220 / 220 113 / 1130
[2025-01-03] MEDS: SEROQUEL 25 MG PO ×3 (09:25→20:56)
[2025-01-03] MEDS: NAMENDA 10 MG PO ×2 (09:26→20:55)
[2025-01-03] MEDS: ARICEPT 5 MG PO (09:26)
[2025-01-03] MEDS: MIRALAX 17 GRAMS PO (09:26)
--- NOTE | 2025-01-03 09:39 | CS.PSYCHR ---
Consult Summary - Psychiatry
-
Psychiatry consult for dementia with behavioral disturbances and agitation. Chart reviewed. 84 yo female admitted 01/01 with cognitive decline with behavioral issues. Seen by neurology 01/01 and determined to be progressing toward dementia, nothing
further determined via CT, MRI brain and EEG. Taking Aricept and memantine now. Seroquel has been titrated to 25mg TID. Overnight was pulling at hair and ripping personal items/pillows, resulted in need for restrains and haldol 2mg IV. She is now on
Seroquel 25mg TID as well as Haldol 2mg IV q4h PRN agitation. Had UTI treated last week. Family reports history of recurrent UTIs. Family able to acknowledge cognitive decline but present concerned for episodes of acute agitation as noted above.
Patient is calm and cooperative at this time. She states she remembers episodes of agitation and feeling scared in those moments, particularly when her family is not here.
01/02 Qtc 440
MSE- sitting in chair. somnolent but arousable. impoverished speech. denies hallucinations at this time. oriented to person, place, year, month, season.
PMH- HTN, HLD, hyponatremia, hypothyroidism valvular disease, recently treated UTI
Social- Lives with . has supportive daughter
Past psych- none
A/P- 84 yo female with dementia with behavioral disturbance. Condition possibly exacerbated by recent UTI which although treated and most recent urine is clear, can still have a lingering effect on the brain in vulnerable patient population. Also
given history of recurrent UTIs, will check another routine urine. Agree with management of agitation with standing seroquel for now. Also has haldol IV PRN available. if this is delirium on top of dementia condition should show gradual improvement.
--- NOTE | 2025-01-03 11:46 | W.PN.NEURO.1 ---
Today's Communication / Plan
-
increase Aricept 10 BID (in place of 23 mg tablet)
Neuro Assessment/Plan
Assessment
84 year old woman with history consistent with MCI, presenting with multiple episodes of delirium, today appears unprovoked, and it's not entirely clear whether the prior admission for delirium was provoked or not. Patient with substantial
fluctuations, and is at times lucid
Believe that she is progressing towards dementia.
Had Head CT, Brain MRI, and EEG that does not show an alternative explanation
Spoke with and dtr, people in this situation often compensate for a long time, and tend to have preserved social skills until late into the disease, smooth over any lapses.
Plan
Agree increase Seroquel 25 TID
increase Aricept 10 BID (in place of 23 mg tablet)
continue Namenda 10 BID
agree with placement dementia unit
Subjective/Objective
Subjective Data
Date of Service: January 03, 2025
overnight episode of agitation requiring IM zyprexa, restraints
now calm
Objective Data
Vital Signs
Temp Pulse Resp BP Pulse Ox
36.9 C 95 16 145/83 96
01/03/25 07:45 01/03/25 07:45 01/03/25 07:45 01/03/25 07:45 01/03/25 08:00
Lab Results
01/01/25 09:28
01/02/25 06:00
Sodium Cancelled 01/02/25 06:00
Potassium Cancelled 01/02/25 06:00
BUN Cancelled 01/02/25 06:00
Glucose Cancelled 01/02/25 06:00
Calcium Cancelled 01/02/25 06:00
Patient Allergies
Arnica (Arnica montana) Allergy (Verified 12/27/24 07:56)
severe hypertension
barium sulfate Allergy (Verified 12/27/24 07:56)
Unknown
latex Allergy (Verified 12/27/24 07:56)
Unknown
Penicillins Allergy (Verified 12/27/24 07:56)
Rash
Physical Exam
-
Awake, picking at her hair
pleasantly confused
nonfocal
--- NOTE | 2025-01-03 12:15 | CM ---
Met with patient's daughter, Genesis, at the bedside; explained that PT recommended SNF; spouse and family are agreeable
Facility options reviewed; preferences identified; referrals [facility] via [facility] to [facility], [facility], [facility] and [facility]
Left a voice mail for Xena Santana; requested she contact if we need to fax clinicals to her for review
Plan: Discharge to SNF when stable; pending bed availability and [place] [id number] AUTH approval
[2025-01-03] MEDS: NORVASC 2.5 MG PO (13:46)
[2025-01-03 15:30] VITALS: BP 115/76
[2025-01-03] MEDS: LOVENOX SC (17:10)
[2025-01-03 17:34] LABS: Urine Albumin 2+ (Neg - Trace); Urine Bilirubin Negative (Negative); Urine Character Slightly Cloudy (Clear); Urine Color Yellow; Urine Glucose Negative (Negative); Urine Ketone Negative (Negative); Urine Leukocyte 3+ (Negative); Urine Nitrite Positive (Negative); Urine Occult Blood 2+ (Negative); Urine Specific Gravity 1.015 (<1.030); Urine Urobilinogen Negative (Neg - 1+)
[2025-01-03 17:50] LABS: Urine Bacteria Many (Negative); Urine Red Blood Cell 16-20 /HPF (0-2); Urine White Cell >100 /HPF (0-5)
[2025-01-03] MEDS: ARICEPT 10 MG PO (20:55)
[2025-01-03] MEDS: LIDOCAINE 4% PATCH 1 PATCH TOPICAL (21:18)
[2025-01-03 23:19] VITALS: BP 142/72
[2025-01-04 07:50] VITALS: BP 100/53
[2025-01-04] MEDS: SEROQUEL 25 MG PO ×3 (08:02→20:54)
[2025-01-04] MEDS: NAMENDA 10 MG PO ×2 (08:02→20:55)
[2025-01-04] MEDS: TYLENOL 650 MG PO ×3 (08:03→18:11)
[2025-01-04] MEDS: MIRALAX 17 GRAMS PO (08:03)
[2025-01-04] MEDS: ARICEPT 10 MG PO ×2 (08:03→20:55)
[2025-01-04] MEDS: STERILE WATER FOR INJECTION 2.1 ML IM (08:12)
[2025-01-04] MEDS: ZYPREXA 5 MG IM (08:12)
--- NOTE | 2025-01-04 08:25 | PTCARENOTE ---
Patient restless and verbalizes that she feels anxious; PRN IM Zyprexa given.
[2025-01-04] MEDS: ROCEPHIN 1000 MG IV (11:51)
[2025-01-04] MEDS: STERILE WATER FOR INJECTION 10 ML IV (11:51)
[2025-01-04] MEDS: NORVASC PO (11:55)
--- NOTE | 2025-01-04 12:55 | W.PN.HOSP.TC ---
Today's Communication/Plan
-
Start IV ceftriaxone and follow urine culture
Monitor mental status
Plan for placement at discharge
Assessment / Plan
Assessment / Plan
#Dementia with behavioral disturbance
-Suspect episodic confusion due to
-Patient admits to memory impairment, but has been hiding it from her family
-She is independent in self-care at baseline
-TSH/B12 normal. Brain MRI and EEG unremarkable. UA/CXR/Head CT all neg
-Neurology started on Namenda and Aricept BID
-Psychiatry started Seroquel 25 mg 3 times daily
-Pending placement
#Urinary tract infection
#H/O recurrent UTI
-Recently treated for urinary tract infection with 5 days antibiotics, question fecal incontinence contributing (?)
-Urinalysis yesterday consistent with infection; does have tenderness to the suprapubic palpation
-Unable to provide much history on symptoms such as dysuria, frequency, due to mental status
-Will start on IV ceftriaxone empirically, narrow antibiotics per culture results
-Monitor mental status on antibiotic
#Hypothyroidism
-TSH now normal with starting low-dose levothyroxine
-Daughter concerned that patient's confusion coincided with starting low-dose levothyroxine a few weeks ago
-Levothyroxine was stopped here upon patient's request
#Dehydration
-Encourage oral intake
#Cough
-Influenza/COVID neg, chest x-ray neg
-Supportive care
#Essential hypertension
-Continue amlodipine 2.5 mg daily
#Severe protein Calorie Malnutrition
-Encourage oral intake, started chocolate Ensure
DVT prophylaxis: subcu Lovenox
Diet: Regular
CODE STATUS: Full code
Updated family at bedside 01/03, 01/04
Total time spent to see the patient on the floor, examine the patient, review data and lab results, discuss treatment plan with patient, nursing staff around 40 minutes.
Anticipated Discharge: 24 - 48 hours
Subjective/Interval History
-
Date of Service: January 04, 2025
Seen and examined at the bedside. No acute events reported overnight. AFVSS as of this morning
Spoke with the patient's daughter outside of the room. Mentions that her mother's mental status really worsened over the last 3 weeks, was able to hold conversation and perform IADLs prior to that. States that she is acting like she has in the
past with urinary tract infections. Urinalysis overnight was consistent with UTI, does have some tenderness to suprapubic palpation on my exam.
ROS otherwise limited from her mental status.
Objective Data
-
Vital Signs:
Vital Signs
Temp Pulse Resp BP Pulse Ox
97.2 F 104 16 100/53 97
01/04/25 07:50 01/04/25 07:50 01/04/25 07:50 01/04/25 07:50 01/04/25 07:50
I&O
01/03/25 01/04/25 01/05/25
06:59 06:59 06:59
Intake Total 1130 / 1130 1320 / 1320
Output Total 750 / 750
Balance 1130 / 1130 570 / 570
Review of Systems
-
Unable to obtain full review of systems at this time due to: Other (Encephalopathy)
History Source: Patient
All other systems: Reviewed and negative
Physical Exam
-
General: Well Developed, No Apparent Distress, Comfortable and Cachectic
HEENT: Normocephalic, Atraumatic and Moist Mucous Membranes
Respiratory: Clear to Auscultation and Non Labored Respirations
Cardiac: Regular Rhythm and S1/S2; Negative Murmur, Rub or Gallop
GI: Soft, Nontender, Nondistended and Normal Bowel Sounds
Genito-urinary: Other (Tenderness to suprapubic palpation)
Musculoskeletal: No Clubbing, No Cyanosis and No Edema
Skin: Warm and Dry; Negative Rash
Neuro: Sedated, Nonfocal/Grossly Intact and Other (Encephalopathic)
Psych: Calm
Data Reviewed
-
Labs: Labs Reviewed by me and Discussed with Family
[2025-01-04] MEDS: REFRESH EYE DROPS (PF) 1 DROPS OPHTH (14:37)
[2025-01-04 14:54] VITALS: BMI 17.5
[2025-01-04 15:15] VITALS: BP 125/73
--- NOTE | 2025-01-04 15:23 | CM ---
Reviewed the chart notes and spoke with the patient's daughter at the bedside. [facility] is reviewing. [facility] declined patient. Family to review list and provide additional names. CM continues to be available to patient/family and is
monitoring medical plan for needs at discharge.
Plan: Discharge to SNF once bed secured and precert required.
[2025-01-04] MEDS: LOVENOX 30 MG SC (17:36)
[2025-01-04] MEDS: LIDOCAINE 4% PATCH 1 PATCH TOPICAL (20:55)
[2025-01-04 23:36] VITALS: BP 97/63
[2025-01-05 07:14] LABS: % Basophils 1.5 % (0-2); % Eosinophils 6.5 % (0-6); % Immature Granulocytes 0.2 % (0-0.5); % Lymphocytes 31.6 % (20.5-51.1); % Monocytes 12.9 % (1.7-9.3); % Neutrophils 47.3 % (42.2-75.2); Absolute Basophils 0.1 10^3/uL (0-0.2); Absolute Eosinophils 0.3 10^3/uL (0-0.7); Absolute Lymphocytes 1.5 10^3/uL (1.2-3.4); Absolute Monocytes 0.6 10^3/uL (0.1-0.6); Absolute Neutrophils 2.2 10^3/uL (1.4-6.5); Hematocrit 33.8 % (37.0-47.0); Hemoglobin 11.5 g/dL (12.0-16.0); Mean Corpuscular Volume 94.2 fL (81.0-99.0); Mean Platelet Volume 10.1 fL (7.4-10.4); Nucleated Red Blood Cells % 0 %; Platelet Count 264 10^3/uL (130-400); Red Blood Cell Count 3.59 10^6/uL (4.20-5.40); Red Cell Dist. Width 14.1 % (11.5-14.5); White Blood Cell Count 4.7 10^3/uL (4.8-10.8)
[2025-01-05 07:20] VITALS: BP 157/101
[2025-01-05 07:46] LABS: Blood Urea Nitrogen 25 mg/dl (7-17); Calcium 9.5 mg/dl (8.4-10.2); Carbon Dioxide 28 mmol/L (22-30); Chloride 99 mmol/L (98-107); Estimated Creatinine Clearance 35 ml/min; Glucose 90 mg/dl (70-99); Potassium 4.5 mmol/L (3.5-5.1); Sodium 136 mmol/L (135-145); eGFR > 60.00
[2025-01-05] MEDS: SEROQUEL 25 MG PO (08:02)
[2025-01-05] MEDS: NAMENDA 10 MG PO (08:03)
[2025-01-05] MEDS: ARICEPT 10 MG PO (08:03)
[2025-01-05] MEDS: MIRALAX 17 GRAMS PO (08:03)
[2025-01-05] MEDS: REFRESH EYE DROPS (PF) 1 DROPS OPHTH (08:06)
--- NOTE | 2025-01-05 10:17 | VNURNOTE ---
Chart reviewed.� Patient is current with [facility] nursing.� Will continue to follow hospital course and DC plans.
--- NOTE | 2025-01-05 10:30 | W.PN.UPDATE ---
Update Note
Progress Note Update
Patient seen on follow up for Psych. at bedside. Ms. Rothman is sitting up in the chair but sleepy this AM. tells me she has been calmer and family is trying to stay with her as much as possible. She is being treated for another UTI.
Impression/Plan: Dementia with behavioral disturbance - continue with Seroquel 25mg TID. Monitor for oversedation. Continue efforts to reorient as needed to avoid agitation. Zyprexa and Haldol available PRN for extreme agitation.
[2025-01-05 10:43] VITALS: PULSE 107; O2SAT 97
[2025-01-05] MEDS: ROCEPHIN 1000 MG IV (11:40)
[2025-01-05] MEDS: ZOFRAN 4 MG IV (11:40)
[2025-01-05] MEDS: STERILE WATER FOR INJECTION 10 ML IV (11:40)
[2025-01-05] MEDS: NORVASC 2.5 MG PO (11:41)
--- NOTE | 2025-01-05 11:46 | W.PN.HOSP.TC ---
Today's Communication/Plan
-
Continue antibiotics and follow urine culture/sensitivity
Continue Namenda and Aricept
Monitor for oversedation from Seroquel
Monitor MSE
Assessment / Plan
Assessment / Plan
#Urinary tract infection
#H/O recurrent UTI
-Recently treated for urinary tract infection with 5 days antibiotics, question fecal incontinence contributing (?)
-Urinalysis yesterday consistent with infection; does have tenderness to the suprapubic palpation
-Unable to provide much history on symptoms such as dysuria, frequency, due to mental status
-Started on IV ceftriaxone empirically; urine culture is growing gram-negative rods
-Continue IV ceftriaxone and follow-up urine culture and sensitivities
-Monitor mental status on antibiotic
#Dementia with behavioral disturbance
-Suspect episodic confusion due to ; She is independent in self-care at baseline
-Patient admits to memory impairment, but has been hiding it from her family
-TSH/B12 normal. Brain MRI and EEG unremarkable. UA/CXR/Head CT all neg
-Neurology started on Namenda and Aricept BID
-Psychiatry started Seroquel 25 mg TID
-Monitor for oversedation from Seroquel
-Pending placement
#Hypothyroidism
-TSH now normal with starting low-dose levothyroxine
-Daughter concerned that patient's confusion coincided with starting low-dose levothyroxine a few weeks ago
-Levothyroxine was stopped here upon patient's request
#Dehydration
-Encourage oral intake
#Cough
-Influenza/COVID neg, chest x-ray neg
-Supportive care
#Essential hypertension
-Continue amlodipine 2.5 mg daily
#Severe protein Calorie Malnutrition
-Encourage oral intake, started chocolate Ensure
-BMI 17.5, weight 38 kg
DVT prophylaxis: subcu Lovenox
Diet: Regular
CODE STATUS: Full code
Updated family at bedside 01/03, 01/04, 01/05
Anticipated Discharge: 24 - 48 hours
Subjective/Interval History
-
Date of Service: January 05, 2025
Seen and examined while seated in the chair. No acute events overnight. AFVSS this morning
Mental status minimally improved, still seems lethargic and minimally responsive.
ROS limited from her mental status. at bedside and provided updates
Objective Data
-
Labs:
Laboratory Results
01/05/25
06:12
WBC 4.7 L
Hgb 11.5 L
Hct 33.8 L
Plt Count 264
Sodium 136
Potassium 4.5
Chloride 99
Carbon Dioxide 28
BUN 25 H
Creatinine 0.7
Glucose 90
Calcium 9.5
Vital Signs:
Vital Signs
Temp Pulse Resp BP Pulse Ox
97.4 F 88 16 144/95 98
01/05/25 07:20 01/05/25 11:41 01/05/25 07:20 01/05/25 11:41 01/05/25 07:20
I&O
01/04/25 01/05/25 01/06/25
06:59 06:59 06:59
Intake Total 1320 / 1320 510 / 510
Output Total 750 / 750
Balance 570 / 570 510 / 510
Review of Systems
-
History Source: Patient
All other systems: Reviewed and negative
Physical Exam
-
General: Well Developed, No Apparent Distress, Appears Chronically Ill and Cachectic
HEENT: Normocephalic, Atraumatic and Moist Mucous Membranes
Respiratory: Clear to Auscultation and Non Labored Respirations
Cardiac: Regular Rhythm and S1/S2; Negative Murmur, Rub or Gallop
GI: Soft, Nontender, Nondistended and Normal Bowel Sounds
Musculoskeletal: No Clubbing, No Cyanosis and No Edema
Skin: Warm, Dry and Normal Turgor; Negative Rash
Neuro: Sedated, Nonfocal/Grossly Intact and Other (Resistance examination of pupils)
Psych: Calm
Data Reviewed
-
Labs: Labs Reviewed by me and Discussed with Family
[2025-01-05 15:10] VITALS: BP 136/94
--- NOTE | 2025-01-05 15:12 | CM ---
Reviewed the chart notes and spoke with the patient's daughter at the bedside. Additional referrals sent. CM continues to be available to patient/family and is monitoring medical plan for needs at discharge.
Plan: Discharge to SNF/rehab once bed found and precert obtained.
[2025-01-05] MEDS: SEROQUEL PO ×2 (15:16→22:58)
[2025-01-05] MEDS: LOVENOX 30 MG SC (17:44)
[2025-01-05] MEDS: ARICEPT PO (21:20)
[2025-01-05] MEDS: NAMENDA PO (21:21)
[2025-01-05] MEDS: LIDOCAINE 4% PATCH TOPICAL (22:58)
[2025-01-05 23:03] VITALS: BP 126/64
[2025-01-05 23:25] VITALS: BP 126/64
--- NOTE | 2025-01-06 03:38 | DOWNTIME ---
There was a [employer] Client [employer] Checker Downtime on 01/06/2025 from 0100 to 01/06/2024 at 0235 . Downtime documentation of patient's care, including medication administrations, has been reconciled in the electronic record per guidelines. Refer to the
patient's paper chart under the miscellaneous tab to see printed paper medication records and downtime forms.
[2025-01-06 07:11] LABS: % Basophils 1.1 % (0-2); % Eosinophils 1.3 % (0-6); % Lymphocytes 17.4 % (20.5-51.1); % Monocytes 6.4 % (1.7-9.3); % Neutrophils 71.8 % (42.2-75.2); Absolute Basophils 0.1 10^3/uL (0-0.2); Absolute Eosinophils 0.1 10^3/uL (0-0.7); Absolute Immature Granulocytes 0.2 10^3/uL (0-0.05); Absolute Lymphocytes 1.3 10^3/uL (1.2-3.4); Absolute Monocytes 0.5 10^3/uL (0.1-0.6); Absolute Neutrophils 5.4 10^3/uL (1.4-6.5); Hematocrit 37.8 % (37.0-47.0); Hemoglobin 12.4 g/dL (12.0-16.0); Mean Corp Hgb Conc. 32.8 g/dL (33.0-37.0); Mean Corpuscular Hgb 31.5 pg (27.0-31.0); Mean Corpuscular Volume 95.9 fL (81.0-99.0); Nucleated Red Blood Cells % 0 %; Platelet Count 308 10^3/uL (130-400); Red Blood Cell Count 3.94 10^6/uL (4.20-5.40); Red Cell Dist. Width 14.2 % (11.5-14.5); White Blood Cell Count 7.5 10^3/uL (4.8-10.8)
[2025-01-06 07:43] VITALS: BP 157/87
[2025-01-06 08:09] LABS: Blood Urea Nitrogen 20 mg/dl (7-17); Calcium 9.5 mg/dl (8.4-10.2); Carbon Dioxide 27 mmol/L (22-30); Chloride 98 mmol/L (98-107); Estimated Creatinine Clearance 40 ml/min; Glucose 164 mg/dl (70-99); Potassium 4.1 mmol/L (3.5-5.1); Sodium 135 mmol/L (135-145); eGFR > 60.00
[2025-01-06] MEDS: NAMENDA PO ×2 (08:21→08:32)
[2025-01-06] MEDS: SEROQUEL PO ×2 (08:21→08:29)
[2025-01-06] MEDS: ARICEPT PO ×2 (08:21→08:30)
[2025-01-06] MEDS: MIRALAX 17 GRAMS PO (08:21)
--- NOTE | 2025-01-06 08:33 | PTCARENOTE ---
This RN went in to administer AM meds, pt refusing and daughter stating they should have already been cancelled, made aware, medications not administered (see MAR). No new orders at this time.
[2025-01-06] MEDS: NORVASC 2.5 MG PO (11:06)
[2025-01-06] MEDS: TYLENOL 650 MG PO ×2 (11:06→22:16)
--- NOTE | 2025-01-06 11:48 | W.PN.HOSP.TC ---
Today's Communication/Plan
-
Transition to oral antibiotic within the next day
Close OP follow-up with urology for consideration of antibiotic maintenance
SNF planning
Assessment / Plan
Assessment / Plan
#Urinary tract infection
#H/O recurrent UTI
#Metabolic encephalopathy
-Recently treated for urinary tract infection with 5 days antibiotics, question fecal incontinence contributing (?)
-Urinalysis yesterday consistent with infection; does have tenderness to the suprapubic palpation
-Started on IV ceftriaxone empirically; urine culture with K. pneumoniae (resistant to ampicillin)
-Mental status has improved vastly since initiation of antibiotic
-Discussed with urology for close OP follow-up appointment
Plan
-Plan for 14 days of antibiotic with transition to cephalexin as oral option
-Close OP follow-up with urology for consideration of maintenance antibiotic
-Plan for OP CT A/P without contrast to assess for stone prior to OV
-Will need to repeat urine culture at 3 weeks to reassess for infection
-Trend CBC and temperature curve here
#Dementia (?)
-Patient has no formal diagnosis of dementia, was concerns due to mental changes at admission
-Cannot rule out that she does not have underlying cognitive process but needs formal diagnosis
-Should have follow-up with neurology as OP for neuropsychiatric eval
-Will discontinue Namenda/Aricept/Seroquel at family request
#Hypothyroidism
-TSH now normal with starting low-dose levothyroxine
-Daughter concerned that patient's confusion coincided with starting low-dose levothyroxine a few weeks ago
-Levothyroxine was stopped here upon patient and family request
#Dehydration
-Encourage oral intake
#Cough
-Influenza/COVID neg, chest x-ray neg
-Supportive care
#Essential hypertension
-Continue amlodipine 2.5 mg daily
#Severe protein Calorie Malnutrition
-Encourage oral intake, started chocolate Ensure
-BMI 17.5, weight 38 kg
DVT prophylaxis: subcu Lovenox
Diet: Regular
CODE STATUS: Full code
Updated family at bedside 01/03, 01/04, 01/05, 01/06. Updated them that they need to call Dr. Orozco's office before this upcoming Saturday to schedule office visit, ideally in the timeframe of 3 to 4 weeks when patient is out of SNF and off of
antibiotic regimen. Will need CT A/P without contrast to assess for stones. Will need repeat urine culture at 3 weeks.
Anticipated Discharge: Within 24 hours
Subjective/Interval History
-
Date of Service: January 06, 2025
Seen and examined at the bedside. No acute events reported overnight. AFVSS this morning
Mental status is vastly improved. Patient was sitting up in chair, eyes open, able to participate in conversation. Daughter is at bedside and on phone, updated
Denies any new complaints as of this morning.
Objective Data
-
Labs:
Laboratory Results
01/06/25
06:20
WBC 7.5
Hgb 12.4
Hct 37.8
Plt Count 308
Sodium 135
Potassium 4.1
Chloride 98
Carbon Dioxide 27
BUN 20 H
Creatinine 0.6
Glucose 164 H
Calcium 9.5
Vital Signs:
Vital Signs
Temp Pulse Resp BP Pulse Ox
97.7 F 97 16 157/87 97
01/06/25 07:43 01/06/25 07:43 01/06/25 07:43 01/06/25 07:43 01/06/25 10:25
I&O
01/05/25 01/06/25 01/07/25
06:59 06:59 06:59
Intake Total 510 / 510 960 / 960
Output Total 200 / 200
Balance 510 / 510 760 / 760
Review of Systems
-
History Source: Patient
All other systems: Reviewed and negative
Physical Exam
-
General: Well Developed, No Apparent Distress, Comfortable, Cachectic and Other (Frail-appearing)
HEENT: Normocephalic, Atraumatic and Moist Mucous Membranes
Respiratory: Clear to Auscultation and Non Labored Respirations
Cardiac: Regular Rhythm and S1/S2; Negative Murmur, Rub or Gallop
GI: Soft, Nontender, Nondistended and Normal Bowel Sounds
Musculoskeletal: No Clubbing, No Cyanosis and No Edema
Skin: Warm, Dry and Normal Turgor; Negative Rash
Neuro: Awake, Alert, Oriented and Nonfocal/Grossly Intact; Negative Tremors
Data Reviewed
-
Labs: Labs Reviewed by me, Discussed with Physician (Urologist) and Discussed with Patient
[2025-01-06] MEDS: ROCEPHIN 1000 MG IV (12:29)
[2025-01-06] MEDS: STERILE WATER FOR INJECTION 10 ML IV (12:32)
--- NOTE | 2025-01-06 13:27 | CM ---
Reviewed the chart notes. Additional referrals sent. CM continues to be available to patient/family and is monitoring medical plan for needs at discharge.
Plan: Discharge to SNF/rehab once bed secured and precert obtained.
[2025-01-06 15:48] VITALS: BP 101/89; PULSE 93; O2SAT 97
[2025-01-06 15:55] VITALS: BP 152/80
[2025-01-06] MEDS: LOVENOX 30 MG SC (17:26)
[2025-01-06] MEDS: REFRESH EYE DROPS (PF) 1 DROPS OPHTH (19:12)
[2025-01-06] MEDS: LIDOCAINE 4% PATCH 1 PATCH TOPICAL (19:13)
[2025-01-06 22:59] VITALS: BP 147/78
[2025-01-07 07:32] VITALS: BP 151/81
[2025-01-07] MEDS: MIRALAX 17 GRAMS PO (07:52)
--- NOTE | 2025-01-07 11:10 | W.PN.HOSP.TC ---
Today's Communication/Plan
-
Plan 14 days of antibiotics, cephalexin to complete course at discharge
Outpatient CT A/P without contrast, urine culture after antibiotics
Will consider prescription for cefdinir if symptoms recur prior to OP OV with urologist
Patient is medically stable for discharge to SNF pending bed availability and insurance authorization
Assessment / Plan
Assessment / Plan
#Urinary tract infection
#H/O recurrent UTI
#Metabolic encephalopathy
-Recently treated for urinary tract infection with 5 days antibiotics, question fecal incontinence contributing (?)
-Urinalysis yesterday consistent with infection; does have tenderness to the suprapubic palpation
-Started on IV ceftriaxone empirically; urine culture with K. pneumoniae (resistant to ampicillin)
-Mental status has improved vastly since initiation of antibiotic
-Discussed with urology for close OP follow-up appointment
Plan
-Plan for 14 days of antibiotic with transition to cephalexin as oral option
-Close OP follow-up with urology for consideration of maintenance antibiotic
-Plan for OP CT A/P without contrast to assess for stone prior to OV
-Will need to repeat urine culture at 3 weeks to reassess for infection
-Trend CBC and temperature curve here
#Dementia (?)
-Patient has no formal diagnosis of dementia, was concerns due to mental changes at admission
-Cannot rule out that she does not have underlying cognitive process but needs formal diagnosis
-Should have follow-up with neurology as OP for neuropsychiatric eval
-Will discontinue Namenda/Aricept/Seroquel at family request
#Hypothyroidism
-TSH now normal with starting low-dose levothyroxine
-Daughter concerned that patient's confusion coincided with starting low-dose levothyroxine a few weeks ago
-Levothyroxine was stopped here upon patient and family request
#Dehydration
-Encourage oral intake
#Cough
-Influenza/COVID neg, chest x-ray neg
-Supportive care
#Essential hypertension
-Continue amlodipine 2.5 mg daily
#Severe protein Calorie Malnutrition
-Encourage oral intake, started chocolate Ensure
-BMI 17.5, weight 38 kg
DVT prophylaxis: subcu Lovenox
Diet: Regular
CODE STATUS: Full code
Updated family at bedside 01/03, 01/04, 01/05, 01/06. Updated them that they need to call Dr. Orozco's office before this upcoming Saturday to schedule office visit, ideally in the timeframe of 3 to 4 weeks when patient is out of SNF and off of
antibiotic regimen. Will need CT A/P without contrast to assess for stones. Will need repeat urine culture at 3 weeks.
Anticipated Discharge: Within 24 hours
Subjective/Interval History
-
Date of Service: January 07, 2025
Seen and examined at the bedside. No acute events reported overnight. AFVSS this morning
She continues to appear well, was walking through her room using the walker. Remains alert and AAOx4
Denies any new complaints as of this morning.
Objective Data
-
Vital Signs:
Vital Signs
Temp Pulse Resp BP Pulse Ox
97.6 F 87 16 151/81 98
01/07/25 07:32 01/07/25 07:32 01/07/25 07:32 01/07/25 07:32 01/07/25 08:44
I&O
01/06/25 01/07/25 01/08/25
06:59 06:59 06:59
Intake Total 960 / 960 640 / 640
Output Total 200 / 200
Balance 760 / 760 640 / 640
Review of Systems
-
History Source: Patient
All other systems: Reviewed and negative
Physical Exam
-
General: Well Developed, No Apparent Distress and Cachectic
HEENT: Normocephalic, Atraumatic and Moist Mucous Membranes
Respiratory: Clear to Auscultation and Non Labored Respirations
Cardiac: Regular Rhythm and S1/S2; Negative Murmur, Rub or Gallop
GI: Soft, Nontender, Nondistended and Normal Bowel Sounds
Musculoskeletal: No Clubbing, No Cyanosis and No Edema
Skin: Warm, Dry and Normal Turgor; Negative Rash
Neuro: AO x 3 and Nonfocal/Grossly Intact
Psych: Calm
Data Reviewed
-
Labs: Labs Reviewed by me and Discussed with Patient
[2025-01-07] MEDS: NORVASC 2.5 MG PO (12:18)
[2025-01-07] MEDS: REFRESH EYE DROPS (PF) 1 DROPS OPHTH (12:19)
[2025-01-07] MEDS: ROCEPHIN 1000 MG IV (12:19)
[2025-01-07] MEDS: STERILE WATER FOR INJECTION 10 ML IV (12:20)
--- NOTE | 2025-01-07 12:20 | CM ---
Spoke with spouse and patient bedside re discharge plans.
Patient ambulating in halls with RW.
Patient and spouse aware that skilled rehab may not be approved and are agreeable to home with [facility].
Spoke with patients daughter via phone and discussed above.
Daughter would like skilled rehab, she sent financials to [facility], await determination.
CM explained to daughter that patient may not meet insurance criteria for skilled rehab at this time.
Daughter will discuss with her brother.
Plan: skilled rehab if appropriate.
[2025-01-07 15:11] VITALS: BP 135/74
[2025-01-07] MEDS: LOVENOX 30 MG SC (16:58)
[2025-01-07 19:34] VITALS: BP 120/72
[2025-01-07] MEDS: LIDOCAINE 4% PATCH 1 PATCH TOPICAL (20:24)
[2025-01-07] MEDS: TYLENOL 650 MG PO (20:25)
[2025-01-07 22:57] VITALS: BP 92/56
[2025-01-08 01:52] VITALS: BP 137/85
[2025-01-08 07:47] VITALS: BP 126/94
[2025-01-08 09:04] LABS: % Basophils 1.1 % (0-2); % Eosinophils 3.9 % (0-6); % Lymphocytes 29.8 % (20.5-51.1); % Monocytes 10.7 % (1.7-9.3); % Neutrophils 54.5 % (42.2-75.2); Absolute Basophils 0.1 10^3/uL (0-0.2); Absolute Eosinophils 0.2 10^3/uL (0-0.7); Absolute Lymphocytes 1.7 10^3/uL (1.2-3.4); Absolute Monocytes 0.6 10^3/uL (0.1-0.6); Absolute Neutrophils 3.1 10^3/uL (1.4-6.5); Hematocrit 35.8 % (37.0-47.0); Hemoglobin 11.9 g/dL (12.0-16.0); Mean Corp Hgb Conc. 33.2 g/dL (33.0-37.0); Mean Corpuscular Volume 96.2 fL (81.0-99.0); Mean Platelet Volume 9.3 fL (7.4-10.4); Nucleated Red Blood Cells % 0 %; Platelet Count 280 10^3/uL (130-400); Red Blood Cell Count 3.72 10^6/uL (4.20-5.40); Red Cell Dist. Width 14.2 % (11.5-14.5); White Blood Cell Count 5.7 10^3/uL (4.8-10.8)
[2025-01-08 09:27] LABS: Blood Urea Nitrogen 23 mg/dl (7-17); Calcium 9.3 mg/dl (8.4-10.2); Carbon Dioxide 24 mmol/L (22-30); Chloride 104 mmol/L (98-107); Estimated Creatinine Clearance 40 ml/min; Glucose 100 mg/dl (70-99); Sodium 134 mmol/L (135-145); eGFR > 60.00
[2025-01-08] MEDS: MIRALAX 17 GRAMS PO (09:29)
[2025-01-08] MEDS: SEROQUEL 12.5 MG PO ×2 (09:56→17:01)
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
[2025-01-08] MEDS: STERILE WATER FOR INJECTION 10 ML IV (11:14)
[2025-01-08] MEDS: ROCEPHIN 1000 MG IV (11:16)
[2025-01-08] MEDS: NORVASC 2.5 MG PO (11:18)
--- NOTE | 2025-01-08 11:58 | W.PN.HOSP.TC ---
Today's Communication/Plan
-
Seroquel as needed for delirium
Delirium precautions/protocol
Continue IV ceftriaxone for now
Pending SNF placement
Assessment / Plan
Assessment / Plan
#Urinary tract infection
#H/O recurrent UTI
#Metabolic encephalopathy
-Recently treated for urinary tract infection with 5 days antibiotics, question fecal incontinence contributing (?)
-Urinalysis yesterday consistent with infection; does have tenderness to the suprapubic palpation
-Started on IV ceftriaxone empirically; urine culture with K. pneumoniae (resistant to ampicillin)
-Mental status has improved vastly since initiation of antibiotic
-Discussed with urology for close OP follow-up appointment
Plan
-Plan for 14 days of antibiotic with transition to cephalexin as oral option
-Close OP follow-up with urology for consideration of maintenance antibiotic
-Plan for OP CT A/P without contrast to assess for stone prior to OV
-Will need to repeat urine culture at 3 weeks to reassess for infection
-Trend CBC and temperature curve here
#Delirium
-This morning was altered, concerned about her who was just outside the room and perfectly fine
-No fevers or other signs of worsening infection, has been in good mental state last couple of days
-Will resume Seroquel at 12.5 mg as needed up to 3 times daily for agitation/delirium
-Continue to monitor her mental status; optimize natural lighting, frequent redirection
-Avoid benzodiazepines
#Dementia (?)
-Patient has no formal diagnosis of dementia, was concerns due to mental changes at admission
-Cannot rule out that she does not have underlying cognitive process but needs formal diagnosis
-Should have follow-up with neurology as OP for neuropsychiatric eval
-Discontinued standing Namenda/Aricept/Seroquel at family request
#Hypothyroidism
-TSH now normal with starting low-dose levothyroxine
-Daughter concerned that patient's confusion coincided with starting low-dose levothyroxine a few weeks ago
-Levothyroxine was stopped here upon patient and family request
#Essential hypertension
-Continue amlodipine 2.5 mg daily
#Severe protein Calorie Malnutrition
-Encourage oral intake, started chocolate Ensure
-BMI 17.5, weight 38 kg
DVT prophylaxis: subcu Lovenox
Diet: Regular
CODE STATUS: Full code
Updated family at bedside 01/03, 01/04, 01/05, 01/06, 01/07, 01/08. Updated them that they need to call Dr. Orozco's office before this upcoming Saturday to schedule office visit, ideally in the timeframe of 3 to 4 weeks when patient is out of SNF and
off of antibiotic regimen. Will need CT A/P without contrast to assess for stones. Will need repeat urine culture at 3 weeks.
Anticipated Discharge: Within 24 hours
Subjective/Interval History
-
Date of Service: January 08, 2025
Seen and examined at the bedside. No acute events overnight though this morning was very agitated and delirious. AFVSS otherwise
Patient was extremely agitated and worried that her was not well (him and his daughter were standing outside of the room without issue). Sodium level 134 on recheck
History/ROS otherwise limited by her agitation/delirium
Objective Data
-
Labs:
Laboratory Results
01/08/25
08:58
WBC 5.7
Hgb 11.9 L
Hct 35.8 L
Plt Count 280
Sodium 134 L
Potassium 4.0
Chloride 104
Carbon Dioxide 24
BUN 23 H
Creatinine 0.5 L
Glucose 100 H
Calcium 9.3
Vital Signs:
Vital Signs
Temp Pulse Resp BP Pulse Ox
97.2 F 82 14 138/90 99
01/08/25 07:47 01/08/25 11:18 01/08/25 07:47 01/08/25 11:18 01/08/25 07:47
I&O
01/07/25 01/08/25 01/09/25
06:59 06:59 06:59
Intake Total 640 / 640 740 / 740 480 / 480
Balance 640 / 640 740 / 740 480 / 480
Review of Systems
-
History Source: Patient
All other systems: Reviewed and negative
Physical Exam
-
General: Well Developed, Appears in Distress (Emotional) and Cachectic; Negative Pain
HEENT: Normocephalic, Atraumatic and Moist Mucous Membranes
Respiratory: Clear to Auscultation and Non Labored Respirations
Cardiac: Regular Rhythm and S1/S2; Negative Murmur, Rub or Gallop
GI: Soft, Nontender, Nondistended and Normal Bowel Sounds
Musculoskeletal: No Clubbing, No Cyanosis and No Edema
Skin: Warm and Dry; Negative Rash
Neuro: Awake, Alert, Nonfocal/Grossly Intact and Central Nerve's Intact
Psych: Agitated
Data Reviewed
-
Labs: Labs Reviewed by me, Discussed with Patient and Discussed with Family
[2025-01-08 15:04] VITALS: BP 122/70
--- NOTE | 2025-01-08 15:43 | CM ---
Reviewed the chart notes and spoke with the patient's daughter at the bedside. Patient with agitated outbursts today, swinging at staff and calling out. CM continues to be available to patient/family and is monitoring medical plan for needs at
discharge.
Plan: Discharge to SNF/rehab once bed secure and precert obtained.
[2025-01-08] MEDS: LOVENOX 30 MG SC (17:01)
--- NOTE | 2025-01-08 18:28 | PTCARENOTE ---
Patient's mental status waxing and waning throughout shift; AAOX3 but confused conversation, periods of time where patient is cooperative with care but occasionally restless and agitated, pulling at blankets, ripping wipes/paper towels, pulling at
IV wrap and telling this RN she 'needs to bleed.' Frequently asking for who left earlier in evening. Patient given coloring book with colored pencils in attempt to redirect patient. PRN seroquel given - see MAR. Visitor at bedside. Bed and
chair alarm in place.
[2025-01-08] MEDS: LIDOCAINE 4% PATCH 1 PATCH TOPICAL (21:37)
[2025-01-08 23:10] VITALS: BP 112/64
[2025-01-09] MEDS: ZYPREXA 5 MG IM (07:09)
[2025-01-09] MEDS: STERILE WATER FOR INJECTION 2.1 ML IM (07:10)
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
[2025-01-09] MEDS: MIRALAX 17 GRAMS PO (07:39)
--- NOTE | 2025-01-09 07:47 | PTCARENOTE ---
Patient agitated and aggressive this AM, pushing through staff to get to doorway of room, attempting to swing/hit staff with walker, yelling at staff stating she needs to leave room and see her immediately, not able to be redirected. Code
purple called, patient restrained with B/L wrist restraints, PRN IM zyprexa given by this RN. MD made aware of restraint application by night shift manager RN. Daughter at bedside, patient calm and cooperative at this time in bed, restraints removed.
[2025-01-09 07:48] VITALS: BP 125/69
[2025-01-09 09:49] LABS: % Basophils 1.1 % (0-2); % Eosinophils 2.9 % (0-6); % Immature Granulocytes 0.3 % (0-0.5); % Lymphocytes 17.1 % (20.5-51.1); % Monocytes 10.5 % (1.7-9.3); % Neutrophils 68.1 % (42.2-75.2); Absolute Basophils 0.1 10^3/uL (0-0.2); Absolute Eosinophils 0.2 10^3/uL (0-0.7); Absolute Lymphocytes 1.1 10^3/uL (1.2-3.4); Absolute Monocytes 0.7 10^3/uL (0.1-0.6); Absolute Neutrophils 4.2 10^3/uL (1.4-6.5); Hematocrit 34.6 % (37.0-47.0); Hemoglobin 11.5 g/dL (12.0-16.0); Mean Corp Hgb Conc. 33.2 g/dL (33.0-37.0); Mean Corpuscular Hgb 32.2 pg (27.0-31.0); Mean Corpuscular Volume 96.9 fL (81.0-99.0); Mean Platelet Volume 9.6 fL (7.4-10.4); Nucleated Red Blood Cells % 0 %; Platelet Count 288 10^3/uL (130-400); Red Blood Cell Count 3.57 10^6/uL (4.20-5.40); White Blood Cell Count 6.2 10^3/uL (4.8-10.8)
[2025-01-09 10:24] LABS: Blood Urea Nitrogen 19 mg/dl (7-17); Calcium 9.4 mg/dl (8.4-10.2); Carbon Dioxide 26 mmol/L (22-30); Chloride 104 mmol/L (98-107); Estimated Creatinine Clearance 40 ml/min; Glucose 126 mg/dl (70-99); Potassium 4.1 mmol/L (3.5-5.1); Sodium 135 mmol/L (135-145); eGFR > 60.00
[2025-01-09] MEDS: STERILE WATER FOR INJECTION IV (11:49)
[2025-01-09] MEDS: ROCEPHIN IV (11:49)
--- NOTE | 2025-01-09 12:02 | W.PN.HOSP.TC ---
Today's Communication/Plan
-
Transition oral antibiotics
Chemical and mechanical restraints as needed
Plan for Seroquel 12.5 as needed at discharge
Home care versus SNF
Assessment / Plan
Assessment / Plan
#Urinary tract infection
#H/O recurrent UTI
#Metabolic encephalopathy
-Recently treated for urinary tract infection with 5 days antibiotics, question fecal incontinence contributing (?)
-Urinalysis yesterday consistent with infection; does have tenderness to the suprapubic palpation
-Started on IV ceftriaxone empirically; urine culture with K. pneumoniae (resistant to ampicillin)
-Mental status has improved vastly since initiation of antibiotic
-Discussed with urology for close OP follow-up appointment
Plan
-Transition IV ceftriaxone to cephalexin to complete 14 days (last day 01/16)
-Close OP follow-up with urology for consideration of maintenance antibiotic
-Plan for OP CT A/P without contrast to assess for stone prior to OV
-Will need to repeat urine culture at 3 weeks to reassess for infection
-Trend CBC and temperature curve here
#Delirium
-This morning was altered, concerned about her who was just outside the room and perfectly fine
-No fevers or other signs of worsening infection, has been in good mental state last couple of days
-Will resume Seroquel at 12.5 mg as needed up to 3 times daily for agitation/delirium
-Continue to monitor her mental status; optimize natural lighting, frequent redirection
-Avoid benzodiazepines
#Dementia (?)
-Patient has no formal diagnosis of dementia, was concerns due to mental changes at admission
-Cannot rule out that she does not have underlying cognitive process but needs formal diagnosis
-Should have follow-up with neurology as OP for neuropsychiatric eval
-Discontinued standing Namenda/Aricept/Seroquel at family request
#Hypothyroidism
-TSH now normal with starting low-dose levothyroxine
-Daughter concerned that patient's confusion coincided with starting low-dose levothyroxine a few weeks ago
-Levothyroxine was stopped here upon patient and family request
#Essential hypertension
-Continue amlodipine 2.5 mg daily
#Severe protein Calorie Malnutrition
-Encourage oral intake, started chocolate Ensure
-BMI 17.5, weight 38 kg
DVT prophylaxis: subcu Lovenox
Diet: Regular
CODE STATUS: Full code
Updated family at bedside 01/03, 01/04, 01/05, 01/06, 01/07, 01/08, 01/09
Disposition: Patient was initially persistent about SNF placement however with her delirium they are open to taking her home with as needed medications if she responds well to transition to oral antibiotics. Possible discharge on 01/10 if things go
well
Anticipated Discharge: Within 24 hours
Subjective/Interval History
-
Date of Service: January 09, 2025
Seen and examined the bedside. El vania was called this morning when patient became very delirious and agitated. Received a dose of Zyprexa with improved mental state. AFVSS otherwise
Spoke with daughter and at the bedside. Explained to them that her delirium will not get significantly better until she is out of the hospital. Patient initially planning for SNF though her agitation makes placement difficult. May
ultimately benefit from home with home care and visiting nurse as this may be the best scenario for treatment of her delirium.
No other acute issues this morning. Labs are stable
Objective Data
-
Labs:
Laboratory Results
01/09/25
09:32
WBC 6.2
Hgb 11.5 L
Hct 34.6 L
Plt Count 288
Sodium 135
Potassium 4.1
Chloride 104
Carbon Dioxide 26
BUN 19 H
Creatinine 0.5 L
Glucose 126 H
Calcium 9.4
Vital Signs:
Vital Signs
Temp Pulse Resp BP Pulse Ox
98.1 F 84 17 125/69 95
01/09/25 07:48 01/09/25 07:48 01/09/25 07:48 01/09/25 07:48 01/09/25 07:48
I&O
01/08/25 01/09/25 01/10/25
06:59 06:59 06:59
Intake Total 740 / 740 960 / 960
Balance 740 / 740 960 / 960
Review of Systems
-
History Source: Patient
All other systems: Reviewed and negative
Physical Exam
-
General: Well Developed, No Apparent Distress and Cachectic
HEENT: Normocephalic, Atraumatic and Moist Mucous Membranes
Respiratory: Clear to Auscultation and Non Labored Respirations
Cardiac: Regular Rhythm and S1/S2; Negative Murmur, Rub or Gallop
GI: Soft, Nontender, Nondistended and Normal Bowel Sounds
Musculoskeletal: No Clubbing, No Cyanosis and No Edema
Skin: Warm and Dry; Negative Rash
Neuro: AO x 3 and Nonfocal/Grossly Intact
Psych: Calm
Data Reviewed
-
Labs: Labs Reviewed by me, Discussed with Patient and Discussed with Family
[2025-01-09] MEDS: NORVASC 2.5 MG PO (12:44)
[2025-01-09] MEDS: KEFLEX 500 MG PO ×2 (12:44→19:55)
[2025-01-09 15:46] VITALS: BP 123/71
--- NOTE | 2025-01-09 16:18 | CM ---
Reviewed the chart notes and spoke with the patient, spouse, and daughter at the bedside. IMM reviewed and placed on chart. CM continues to be available to patient/family and is monitoring medical plan for needs at discharge.
Plan: Now home with VN services. Patient ambulating well in hallway with spouse.
[2025-01-09] MEDS: LOVENOX 30 MG SC (17:17)
[2025-01-09] MEDS: LIDOCAINE 4% PATCH 1 PATCH TOPICAL (19:55)
[2025-01-09] MEDS: TYLENOL 650 MG PO (19:55)
[2025-01-09 23:25] VITALS: BP 141/69
[2025-01-10] MEDS: SEROQUEL 12.5 MG PO (04:17)
[2025-01-10] MEDS: KEFLEX 500 MG PO ×2 (09:02→20:51)
[2025-01-10] MEDS: MIRALAX 17 GRAMS PO (09:02)
[2025-01-10] MEDS: ZYPREXA 5 MG IM ×2 (09:49→18:44)
[2025-01-10] MEDS: STERILE WATER FOR INJECTION 2.1 ML IM ×2 (09:49→18:44)
[2025-01-10] MEDS: REFRESH EYE DROPS (PF) 1 DROPS OPHTH (10:17)
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
[2025-01-10 11:47] VITALS: BP 141/83
[2025-01-10] MEDS: NORVASC 2.5 MG PO (11:56)
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
[2025-01-10] MEDS: TYLENOL 650 MG PO ×2 (13:15→21:26)
--- NOTE | 2025-01-10 13:45 | CHAP ---
Visited Shruthi at 11:50am, per nurse's request. Family was with her at that time, 'trying to get her to eat.' Shruthi was calm, and said it had been a 'difficult morning.' Shruthi, hard of hearing, was working on a peanut butter sandwich just then. I
assured her of our prayerful support.
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
[2025-01-10] MEDS: SEROQUEL 25 MG PO ×2 (16:05→20:52)
[2025-01-10 16:30] VITALS: BP 134/68
[2025-01-10] MEDS: LIDOCAINE 4% PATCH 1 PATCH TOPICAL (16:37)
[2025-01-10] MEDS: LOVENOX SC (17:37)
[2025-01-10 23:56] VITALS: BP 101/59
--- NOTE | 2025-01-11 06:59 | PTCARENOTE ---
This RN passed along to oncoming shift to please weigh patient.
[2025-01-11 07:48] VITALS: BP 142/82
[2025-01-11] MEDS: KEFLEX 500 MG PO ×2 (07:51→20:47)
[2025-01-11] MEDS: SEROQUEL 25 MG PO ×2 (07:51→22:11)
[2025-01-11] MEDS: MIRALAX PO (07:51)
--- NOTE | 2025-01-11 08:34 | W.PN.HOSP.TC ---
Today's Communication/Plan
-
Antipsychotics. Oral antibiotics. Discharge planning
Assessment / Plan
Assessment / Plan
Physical exam:
General: Well Developed, Well Nourished and No Apparent Distress
HEENT: Normocephalic, Atraumatic and Moist Mucous Membranes
Respiratory: Clear to Auscultation; Negative Wheezes, Rales or Rhonchi
Cardiac: Regular Rhythm and S1/S2
GI: Soft, Nontender and Nondistended
Musculoskeletal: No Clubbing, No Cyanosis and No Edema
Neuro: Awake, Alert and Oriented
Psych: Calm
A/P:
Dementia with behavioral disturbances:
Evaluated by neurology and psychiatry
Currently on Seroquel 25 mg p.o. nightly; and Seroquel and Zyprexa as needed
Discussed with and son at bedside and daughter over the phone
Klebsiella pneumonia UTI:
On oral cephalexin, planning prolonged oral course
Other medical problems:
Metabolic encephalopathy
Delirium
Hyponatremia
Hypertension
Severe protein calorie malnutrition
Presumed hypothyroidism (not on medications-thought to have adverse events but can reevaluate outpatient both Dx and Tx if needed)
DVT prophylaxis:
Lovenox SQ
CODE STATUS:
DNR
Anticipated Discharge: 24 - 48 hours
Subjective/Interval History
-
Date of Service: January 11, 2025
Patient alert and more calm today. Afebrile
Objective Data
-
Vital Signs:
Vital Signs
Temp Pulse Resp BP Pulse Ox
97.6 F 84 16 142/82 98
01/11/25 07:48 01/11/25 07:48 01/11/25 07:48 01/11/25 07:48 01/11/25 07:48
I&O
01/10/25 01/11/25 01/12/25
06:59 06:59 06:59
Intake Total 960 / 960 720 / 720
Balance 960 / 960 720 / 720
[2025-01-11] MEDS: REFRESH EYE DROPS (PF) 1 DROPS OPHTH (10:57)
[2025-01-11] MEDS: NORVASC 2.5 MG PO (13:18)
[2025-01-11 13:47] VITALS: BMI 17.6
--- NOTE | 2025-01-11 14:30 | PTCARENOTE ---
Patient was found sitting on the floor next to her chair with her present in the room. According to the , the patient slid down to the floor from the chair. The patient has a history of cognitive impairment. Pt is confused. Pt stated
she hit her head, but the denied this.The patient denies any pain at this time.Vital signs documented. No signs or symptoms of distress noted. Dr. Hunt and nurse funeral sales manager made aware. No injuries noted.Pt was assisted back to bed by this and
tech.Bed alarm in place and call trevino within reach.
--- NOTE | 2025-01-11 14:37 | W.PN.UPDATE ---
Update Note
Progress Note Update
Pt seen, chart reviewed. Pt currently alert, confused, calm, resting in bed. No signs of EPS. Pt reportedly had a fall/slid from the chair. Pt c/o her stomach hurts. Pt was agitated yesterday, was given Zyprexa 5 mg IM morning and PM. Pt also
took prn Seroquel yesterday afternoon and this morning. QTc has remained stable, 449 on 01/10 (yesterday). Aricept was stopped on 01/03 and Namenda was stopped on 01/05- both at the insistence of pt's family.
Imp: Suspected dementia, with delirium and intermittent agitation, calm this afternoon after given Zyprexa x 2 yesterday
Rec: continue Seroquel routine and prn at current dose. Continue prn Zyprexa for more severe agitation
will continue to follow
--- NOTE | 2025-01-11 14:45 | CM ---
Patient seen bedside with spouse and grandson.
patient itting in chair and pleasant.
TC to daughter Genesis, she stated her dad just called and patient is agitated and told him to leave.
Lengthy discussion with daughter re d/c plan, LTC, VS memory care, vs Personal care, vs private care givers.
Daughter is checking out multiple facilities and spoke with [facility]. CM will drop off additional resources in room.
Daughter stated at this time, patient cannot go home with family.
Plan: await bed availability and medical stability.
[2025-01-11 15:08] VITALS: BP 124/67
[2025-01-11] MEDS: ZYPREXA 5 MG IM (15:59)
[2025-01-11] MEDS: STERILE WATER FOR INJECTION 2.1 ML IM (16:00)
--- NOTE | 2025-01-11 17:00 | PTCARENOTE ---
Pt's spouse made aware of pt has transferred to RM#[id number].
[2025-01-11] MEDS: LOVENOX SC (17:22)
[2025-01-11] MEDS: STERILE WATER FOR INJECTION IM (17:30)
--- NOTE | 2025-01-11 18:19 | PTCARENOTE ---
Pt transferred from 2130 to 2123 to be closer to nursing station due to fall earlier today. Pt oriented to room, previous RN in care of patient calling family to inform them of room swap now. pt resting comfortably in gerichair now. No new orders at
this time.
[2025-01-11 19:34] VITALS: BP 95/55
[2025-01-11] MEDS: LIDOCAINE 4% PATCH 1 PATCH TOPICAL (22:11)
[2025-01-11] MEDS: TYLENOL 650 MG PO (22:12)
[2025-01-11 23:00] VITALS: BP 113/64
[2025-01-12 07:15] VITALS: BP 118/69
--- NOTE | 2025-01-12 08:43 | W.PN.HOSP.TC ---
Today's Communication/Plan
-
Antipsychotics. Discharge planning
Assessment / Plan
Assessment / Plan
Physical exam:
General: Well Developed, Well Nourished and No Apparent Distress
HEENT: Normocephalic, Atraumatic and Moist Mucous Membranes
Respiratory: Clear to Auscultation; Negative Wheezes, Rales or Rhonchi
Cardiac: Regular Rhythm and S1/S2
GI: Soft, Nontender and Nondistended
Musculoskeletal: No Clubbing, No Cyanosis and No Edema
Neuro: Awake, Alert and Disoriented, agitation on and off
Psych: Calm
A/P:
Dementia with behavioral disturbances:
Evaluated by neurology and psychiatry
Currently on Seroquel 25 mg p.o. nightly; and Seroquel and Zyprexa as needed
She is calm and the next minute she is not. Continue to monitor behavior and mental status closely.
Discussed with at bedside and daughter over the phone today
Klebsiella pneumonia UTI:
On oral cephalexin, planning prolonged oral course
Other medical problems:
Metabolic encephalopathy
Delirium
Hyponatremia
Hypertension
Severe protein calorie malnutrition
Presumed hypothyroidism (not on medications-thought to have adverse events but can reevaluate outpatient both Dx and Tx if needed)
DVT prophylaxis:
Lovenox SQ
CODE STATUS:
DNR
Anticipated Discharge: 24 - 48 hours
Subjective/Interval History
-
Date of Service: January 12, 2025
Patient calm this morning but gets agitated on and off.
Objective Data
-
Vital Signs:
Vital Signs
Temp Pulse Resp BP Pulse Ox
97.7 F 81 17 118/69 95
01/12/25 07:15 01/12/25 07:15 01/12/25 07:15 01/12/25 07:15 01/12/25 07:28
I&O
01/11/25 01/12/25 01/13/25
06:59 06:59 06:59
Intake Total 720 / 720 1380 / 1380
Balance 720 / 720 1380 / 1380
[2025-01-12] MEDS: KEFLEX 500 MG PO ×2 (08:59→20:19)
[2025-01-12] MEDS: MIRALAX 17 GRAMS PO (09:00)
[2025-01-12] MEDS: REFRESH EYE DROPS (PF) 1 DROPS OPHTH (09:01)
--- NOTE | 2025-01-12 10:30 | CM ---
Patient OOB in chair.
Spouse in room, calm.
Cont medication adjustment.
Psychiatry following.
Continue to work on discharge planning and bed search.
Plan: LTC vs home with care.
[2025-01-12] MEDS: ZYPREXA 5 MG IM (10:43)
[2025-01-12] MEDS: STERILE WATER FOR INJECTION 2.1 ML IM (10:43)
--- NOTE | 2025-01-12 10:46 | PTCARENOTE ---
Pt increasingly belligerent, grabbing and punching at nursing staff, refusing to take PRN seroquel, IM zyprexa given with assistance of 5 medical personnel to hold pt still for safety. MD aware of current situation.
[2025-01-12] MEDS: NORVASC PO (11:31)
[2025-01-12 12:37] VITALS: BP 124/59
[2025-01-12] MEDS: STERILE WATER FOR INJECTION IM (13:26)
[2025-01-12 13:58] VITALS: BMI 17.5
--- NOTE | 2025-01-12 15:22 | W.PN.UPDATE ---
Update Note
Progress Note Update
Reviewed chart; pt noted to be agitated/combative this morning, refused po med, was given prn Zyprexa 5 mg IM at 10:43. Approached pt to follow up; pt sitting in chair, calm, eating lunch with visitor; did not disturb the pt.
Imp: Suspected dementia, with delirium and intermittent agitation, calm after Zyprexa 5 mg IM prn
Rec: continue Seroquel routine and prn at current dose. Continue prn Zyprexa for more severe agitation
will continue to follow
[2025-01-12 15:35] VITALS: BP 117/64
[2025-01-12] MEDS: LOVENOX 30 MG SC (18:43)
[2025-01-12] MEDS: SEROQUEL 25 MG PO (20:19)
[2025-01-12] MEDS: LIDOCAINE 4% PATCH 1 PATCH TOPICAL (20:19)
[2025-01-12 23:05] VITALS: BP 105/59
[2025-01-13] MEDS: TYLENOL 650 MG PO ×3 (00:15→21:26)
--- NOTE | 2025-01-13 06:37 | PTCARENOTE ---
Pt. restless overnight, hyperfocused on arranging belongings 'just so' around her, out of kim chair frequently to walk/use bathroom. Oriented but forgetful. No uncooperative or aggressive behaviors witnessed.
[2025-01-13 07:31] VITALS: BP 128/87
[2025-01-13] MEDS: MIRALAX 17 GRAMS PO (07:49)
[2025-01-13] MEDS: KEFLEX 500 MG PO ×2 (07:49→20:20)
[2025-01-13] MEDS: REFRESH EYE DROPS (PF) 1 DROPS OPHTH (07:59)
[2025-01-13 08:00] LABS: % Basophils 1.5 % (0-2); % Immature Granulocytes 0.2 % (0-0.5); % Lymphocytes 31.2 % (20.5-51.1); % Monocytes 11.5 % (1.7-9.3); % Neutrophils 50.6 % (42.2-75.2); Absolute Basophils 0.1 10^3/uL (0-0.2); Absolute Eosinophils 0.2 10^3/uL (0-0.7); Absolute Lymphocytes 1.4 10^3/uL (1.2-3.4); Absolute Monocytes 0.5 10^3/uL (0.1-0.6); Absolute Neutrophils 2.3 10^3/uL (1.4-6.5); Hematocrit 33.8 % (37.0-47.0); Hemoglobin 11.2 g/dL (12.0-16.0); Mean Corp Hgb Conc. 33.1 g/dL (33.0-37.0); Mean Corpuscular Hgb 31.7 pg (27.0-31.0); Mean Corpuscular Volume 95.8 fL (81.0-99.0); Mean Platelet Volume 9.2 fL (7.4-10.4); Nucleated Red Blood Cells % 0 %; Platelet Count 318 10^3/uL (130-400); Red Blood Cell Count 3.53 10^6/uL (4.20-5.40); Red Cell Dist. Width 14.6 % (11.5-14.5); White Blood Cell Count 4.6 10^3/uL (4.8-10.8)
--- NOTE | 2025-01-13 08:31 | W.PN.HOSP.TC ---
Today's Communication/Plan
-
Antipsychotics. Antibiotics.
Assessment / Plan
Assessment / Plan
Physical exam:
General: Well Developed, Well Nourished and No Apparent Distress
HEENT: Normocephalic, Atraumatic and Moist Mucous Membranes
Respiratory: Clear to Auscultation; Negative Wheezes, Rales or Rhonchi
Cardiac: Regular Rhythm and S1/S2
GI: Soft, Nontender and Nondistended
Musculoskeletal: No Clubbing, No Cyanosis and No Edema
Neuro: Awake, Alert and Disoriented, agitation on and off
Psych: Calm
A/P:
Dementia with behavioral disturbances:
Evaluated by neurology and psychiatry
Currently on Seroquel 25 mg p.o. nightly; and Seroquel and Zyprexa as needed
Agitation worsens later in the day so we will add low-dose of Seroquel at noon.
She is calm and the next minute she is not. Continue to monitor behavior and mental status closely.
Discussed with daughter at bedside today
Klebsiella pneumonia UTI:
On oral cephalexin, planning prolonged oral course
Family has discussed with outpatient urologist and recommended vaginal estrogen cream and prophylactic antibiotics
Other medical problems:
Metabolic encephalopathy
Delirium
Hyponatremia
Hypertension
Severe protein calorie malnutrition
Presumed hypothyroidism (not on medications-thought to have adverse events but can reevaluate outpatient both Dx and Tx if needed)
DVT prophylaxis:
Lovenox SQ
CODE STATUS:
DNR
Anticipated Discharge: 24 - 48 hours
Subjective/Interval History
-
Date of Service: January 13, 2025
Patient more calm this morning. Afebrile
Objective Data
-
Labs:
Laboratory Results
01/13/25
07:46
WBC 4.6 L
Hgb 11.2 L
Hct 33.8 L
Plt Count 318
Sodium Pending
Potassium Pending
Chloride Pending
Carbon Dioxide Pending
BUN Pending
Creatinine Pending
Glucose Pending
Calcium Pending
Vital Signs:
Vital Signs
Temp Pulse Resp BP Pulse Ox
98.4 F 81 17 128/87 97
01/13/25 07:31 01/13/25 07:31 01/13/25 07:31 01/13/25 07:31 01/13/25 07:31
I&O
01/12/25 01/13/25 01/14/25
06:59 06:59 06:59
Intake Total 1380 / 1380 2550 / 2550
Balance 1380 / 1380 2550 / 2550
[2025-01-13 10:07] LABS: Blood Urea Nitrogen 31 mg/dl (7-17); Calcium 9.4 mg/dl (8.4-10.2); Carbon Dioxide 23 mmol/L (22-30); Chloride 102 mmol/L (98-107); Estimated Creatinine Clearance 40 ml/min; Glucose 78 mg/dl (70-99); Potassium 4.5 mmol/L (3.5-5.1); Sodium 136 mmol/L (135-145); eGFR > 60.00
--- NOTE | 2025-01-13 10:21 | CM ---
PT/OT to eval patient
per nursing agitated, kim-chair, psychiatry following
anticipate SNF
Referrals in [facility] - will need to obtain insurance auth
PLAN: Await PT/OT evals
[2025-01-13] MEDS: NORVASC 2.5 MG PO (11:58)
[2025-01-13] MEDS: SEROQUEL 12.5 MG PO ×2 (11:58→20:18)
--- NOTE | 2025-01-13 14:07 | W.PN.UPDATE ---
Update Note
Progress Note Update
patient seen chart reviewed. discussed with nursing . brother at bedside. patient here at [facility] confusion with periods of very significant agitation. she has been dx uti several times, and uti has been the suspected cause of delirium (superimposed
on existing cognitive decline). the patient has received im zyprexa daily for the past four days. there is also a prn of seroquel she had been receiving in addition to current 12.5 mg dose of seroquel in the day and 25 mg at hs. nursing reports she
started to become agitated around ten am today. she seems to have calmed down with noon time seroquel . when i saw her at two pm she was downright pleasant. have made some changes in her meds to hopefully control am agitation. seroquel now ordered
12. 5 mg q am and midday with the 25 mg dose at hs. if needed would consider another dose at 4 pm but do not want to oversedate her. have decreased the im zyprexa prn to 2 mg (from what nursing describes as to the level of agitation i would
recommend an im prn as she does not have an iv. ) have dc'ed haldol prn which was ordered along w zyprexa would also recheck urine to see if infection is being successfully treated. b12 is nl will check folate. tsh is okay. will follow
[2025-01-13 16:12] VITALS: BP 150/78
[2025-01-13] MEDS: LOVENOX 30 MG SC (16:57)
[2025-01-13] MEDS: SEROQUEL 25 MG PO (21:27)
[2025-01-13] MEDS: LIDOCAINE 4% PATCH 1 PATCH TOPICAL (21:27)
[2025-01-13] MEDS: PREMARIN VAGINAL CREAM 1 APPLIC VAG (21:29)
[2025-01-13 23:30] VITALS: BP 118/68
[2025-01-14] MEDS: TYLENOL 650 MG PO (04:11)
[2025-01-14 07:36] VITALS: BP 167/83
[2025-01-14] MEDS: MIRALAX 17 GRAMS PO (08:18)
[2025-01-14] MEDS: KEFLEX PO ×2 (08:18→08:36)
[2025-01-14] MEDS: SEROQUEL PO ×2 (08:18→08:36)
[2025-01-14] MEDS: ZYPREXA 2 MG IM (08:41)
[2025-01-14] MEDS: STERILE WATER FOR INJECTION 2.1 ML IM (08:41)
--- NOTE | 2025-01-14 08:55 | PTCARENOTE ---
Patient increasingly restless. Patient getting OOB.Patient refusing to take any PO medications. Stating 'I am leaving today, I do not need pills.' Assisted patient to bathroom. Patient fixated on flushing the toilet. Patient flushed the toilet 10
times. Patient not re-directable. Patient agitated and combative. Patient ramming herself into the wall with the walker. Patient biting and kicking staff. Patient given PRN Zyprexa. Patient still agitated and combative. Patient placed in kmi chair,
however, climbing out. Patient assisted to bed and placed in restraints. MD and Psych made aware. updated at bedside.
--- NOTE | 2025-01-14 10:40 | W.PN.UPDATE ---
Addendum entered and electronically signed by Scottie Gill MD 01/14/25 11:04:
spoke with nursing again about the events of this am. patient was banging herself against the wall ....repeatedly flushing the toilet....impervious to redirection from staff. the description is almost like a manic delirium. this is in contrast to
yesterday when she was very + and doing well. this is almost the definition of fluctuation levels of consciousness as in delirium. at this moment having received haldol and ativan is calming.
Original Note:
Update Note
Progress Note Update
spoke to daughter today. patient has had a very very difficult day. she was very agitated this am and combative. she is refusing to take po medications. daughter says when she is here w mom in the am she seems to do better but today she could not
be here. d says before december 10 her mother was fully functional cooking and cleaning. she was sewing quilts all day. she was reading books 'all the time'. the uti had occurred prior to her psych decompensation and the cognitive changes were
attributed to the uti. d says she was told 'she has dementia'. d remembers five years ago it took a month to clear her uti. she was symptomatic on and off throughout that month. d says 'a scan' revealed recurrence of uti in that month. d feels
she has been labeled dementia but she d does not feel (rightly) that you do not get severely demented in a month. i will talk to dr webb and possibly Infectious disease to discuss whether there is more we can do to ascertain that the uti rx is
being effectively treated.
patient when seen by this marketing copywriter was very agitated. she was pulling at the restraints. she was unreachable by verbal intervention . she would not answer even very gentle non threatening questions. i was reluctant to keep injecting w olanzapine
which did not help this am . standing seroquel did not help either she now has an iv and was given one mg haldol and one half mg ativan. told d i would let her know the outcome of this and my discussion with filomena webb and radha.
[2025-01-14] MEDS: NSS (PRESERVATIVE FREE) 0.25 ML IV (10:46)
[2025-01-14] MEDS: ATIVAN 0.5 MG IV (10:46)
[2025-01-14] MEDS: HALDOL 1 MG IV (10:47)
--- NOTE | 2025-01-14 11:26 | W.PN.UPDATE ---
Update Note
Progress Note Update
spoke to doctors re the uti issue. dr webb will review sensitivities and change antibiotic on the chance that uti is the cause of the delirium. called d to appmundoe . roque told me her urologist is dr zaldivar who is on staff at and d suggests
considering consulting him. apprised dr webb
[2025-01-14] MEDS: CIPRO 250 MG PO (11:53)
[2025-01-14] MEDS: NORVASC 2.5 MG PO (11:53)
--- NOTE | 2025-01-14 12:00 | PTCARENOTE ---
Addendum entered by Mary Bernabe RN 01/14/25 14:40:
Patient taking PO pills whole with water at this time.
Original Note:
Patient more alert and oriented. Patient calm. Patient assisted to use the bathroom and assisted to chair. Patient pleasant and cooperative. Patient ordered lunch. Call trevino with in reach and chair alarm in place.
[2025-01-14 14:12] LABS: Folate 9.5 ng/ml (2.76-20)
--- NOTE | 2025-01-14 14:50 | W.PN.HOSP.TC ---
Addendum entered and electronically signed by Pasha Hunt MD 01/14/25 16:18:
After discussion with urology and psychiatry and ID-agree with final recommendation to give cephalexin.
Original Note:
Today's Communication/Plan
-
Change antibiotics. Antipsychotics. Restraints.
Assessment / Plan
Assessment / Plan
Physical exam:
General: Well Developed, Well Nourished and No Apparent Distress
HEENT: Normocephalic, Atraumatic and Moist Mucous Membranes
Respiratory: Clear to Auscultation; Negative Wheezes, Rales or Rhonchi
Cardiac: Regular Rhythm and S1/S2
GI: Soft, Nontender and Nondistended
Musculoskeletal: No Clubbing, No Cyanosis and No Edema
Neuro: Awake, Alert and Disoriented, agitation on and off
Psych: Calm
A/P:
Dementia with behavioral disturbances:
Evaluated by neurology and psychiatry
Currently on Seroquel 25 mg p.o. nightly; and Seroquel and Zyprexa as needed
Continue Seroquel at noon.
She was placed on 4 point restraints this morning.
She is calm and the next minute she is not. Continue to monitor behavior and mental status closely.
Discussed with daughter prior
Discussed with psychiatry who recommended looking to changing antibiotics which is not unreasonable and I just did. Psychiatry also recommend urology eval-I did asked urology and psychiatry on the same text and urology does not feel he needs to be
involved as inpatient but recommend outpatient follow-up.
Klebsiella pneumonia UTI:
Switched today on 01/14 oral cephalexin to oral Cipro renally dose, planning prolonged oral course
Family has discussed with outpatient urologist and recommended vaginal estrogen cream (ordered) and prophylactic antibiotics (this will need to be done after she finishes her course of antibiotics)
Noted penicillin allergy and normal QTc
Can consider retest after finishing treatment
Other medical problems:
Metabolic encephalopathy
Delirium
Hyponatremia
Hypertension
Severe protein calorie malnutrition
Presumed hypothyroidism (not on medications-thought to have adverse events but can reevaluate outpatient both Dx and Tx if needed)
DVT prophylaxis:
Lovenox SQ
CODE STATUS:
DNR
Total time spent on today's encounter was 52 minutes which included time spent in counseling the patient/family regarding diagnosis and treatment plan as listed above, goals of care, and symptom management. Case was discussed with nursing staff,
specialists, and care coordinators/case management. All labs and imaging personally reviewed by me. Remainder the time spent in detailed review of previous records, lab data, imaging, and other medical provider documentation.
Anticipated Discharge: > 48 hours
Subjective/Interval History
-
Date of Service: January 14, 2025
She was agitated early in the morning and had to be restrained. I paid her a second visit and she was very calm sitting in a chair. Remains afebrile
Objective Data
-
Vital Signs:
Vital Signs
Temp Pulse Resp BP Pulse Ox
97.7 F 76 17 167/83 92
01/14/25 07:36 01/14/25 07:36 01/14/25 07:36 01/14/25 07:36 01/14/25 07:36
I&O
01/13/25 01/14/25 01/15/25
06:59 06:59 06:59
Intake Total 2550 / 2550 720 / 720
Balance 2550 / 2550 720 / 720
[2025-01-14] MEDS: REFRESH EYE DROPS (PF) 1 DROPS OPHTH (15:12)
[2025-01-14 15:19] VITALS: BP 106/70
--- NOTE | 2025-01-14 16:03 | W.PN.UPDATE ---
Addendum entered and electronically signed by Scottie Gill MD 01/14/25 16:10:
cannot use seroquel given cipro. will go w prn for now and reassess in am
Original Note:
Update Note
Progress Note Update
this afternoon patient is calm. spoke with nursing how to handle meds for agitation going forward. i did try to get urology to weigh in on antibioitic as they have some experience with her. they said they do not handle difficult uti cases from in pt
and i should call ID. for this i defer to dr webb. at this point antibiotic has been changed and will assess how patient does. re agitation have left a prn of haldol 1mg. iv to be used if patient is agitated. im if she no longer has an iv. for
maintenance of calm will go back to seroquel 25 mg tid hopeully patient will be amenable to po at this point will reassess in am.
--- NOTE | 2025-01-14 16:28 | CM ---
Patient daughter at bedside.
No restraints at present
seen by psychiatry - medication changes
Antibiotic changed
PT has rec SNF
Will need to obtain ins auth
PLAN: SNF when medically stable
[2025-01-14] MEDS: LOVENOX 30 MG SC (17:25)
[2025-01-14] MEDS: SEROQUEL 25 MG PO (19:46)
[2025-01-14] MEDS: KEFLEX 500 MG PO (19:46)
[2025-01-14] MEDS: PREMARIN VAGINAL CREAM 1 APPLIC VAG (21:09)
[2025-01-14] MEDS: LIDOCAINE 4% PATCH 1 PATCH TOPICAL (21:09)
[2025-01-14 23:32] VITALS: BP 99/44
[2025-01-15 07:15] VITALS: BP 129/75
[2025-01-15] MEDS: MIRALAX 17 GRAMS PO (08:13)
[2025-01-15] MEDS: REFRESH EYE DROPS (PF) 1 DROPS OPHTH ×2 (08:15→13:42)
[2025-01-15] MEDS: KEFLEX 500 MG PO ×2 (08:16→21:07)
[2025-01-15] MEDS: SEROQUEL 25 MG PO ×2 (08:16→21:07)
--- NOTE | 2025-01-15 08:51 | W.PN.HOSP.TC ---
Today's Communication/Plan
-
Antipsychotics. Oral antibiotics.
Assessment / Plan
Assessment / Plan
Physical exam:
General: Well Developed, Well Nourished and No Apparent Distress
HEENT: Normocephalic, Atraumatic and Moist Mucous Membranes
Respiratory: Clear to Auscultation; Negative Wheezes, Rales or Rhonchi
Cardiac: Regular Rhythm and S1/S2
GI: Soft, Nontender and Nondistended
Musculoskeletal: No Clubbing, No Cyanosis and No Edema
Neuro: Awake, Alert and Disoriented, agitation on and off
Psych: Calm
A/P:
Dementia with behavioral disturbances:
Evaluated by neurology and psychiatry
Currently on Seroquel 25 mg p.o. nightly; and Seroquel and Zyprexa as needed
Continue Seroquel at noon.
She is calm and the next minute she is not. Continue to monitor behavior and mental status closely.
Discussed with daughter prior
Discussed with psychiatry today
Discussed with RN today
Klebsiella pneumonia UTI:
Continue oral cephalexin
Curbsided urology and ID by psychiatry request and recommended continue this course.
Noted penicillin allergy and tolerating cephalosporin and normal QTc
Can consider retest after finishing treatment
Other medical problems:
Metabolic encephalopathy
Delirium
Hyponatremia
Hypertension
Severe protein calorie malnutrition
Presumed hypothyroidism (not on medications-thought to have adverse events but can reevaluate outpatient both Dx and Tx if needed)
DVT prophylaxis:
Lovenox SQ
CODE STATUS:
DNR
Anticipated Discharge: 24 - 48 hours
Subjective/Interval History
-
Date of Service: January 15, 2025
Patient calm today. Afebrile
Objective Data
-
Vital Signs:
Vital Signs
Temp Pulse Resp BP Pulse Ox
98.5 F 72 16 129/75 96
01/15/25 07:15 01/15/25 07:15 01/15/25 07:15 01/15/25 07:15 01/15/25 07:15
I&O
01/14/25 01/15/25 01/16/25
06:59 06:59 06:59
Intake Total 720 / 720 600 / 600
Balance 720 / 720 600 / 600
--- NOTE | 2025-01-15 12:29 | W.PN.UPDATE ---
Update Note
Progress Note Update
patient seen chart reviewed. spoke with nursing. patient looks very very well this am. she carried on a completely coherent conversation with me this am telling me about her daughter's job, her gratitude to roque for caring so much about her. we
talked about her quilting hobby etc earlier today however she was agitated and required a prn of seroquel which likely has something to do w her settling down. have ordered seroquel 25 mg bid with a prn of 12.5 mg. hopefully w continued rx of
uti her psych condition will improve and she will return to her previous level of functioning which if i can county judge by her positive moments may be quite good. as soon as she seems consistently better would dc seroquel. will follow
[2025-01-15 13:30] VITALS: BP 115/72
[2025-01-15] MEDS: NORVASC 2.5 MG PO (13:30)
[2025-01-15 15:15] VITALS: BP 103/51
--- NOTE | 2025-01-15 15:46 | CM ---
Patient chart reviewed
PT recommend SNF
Will need to obtain ins auth
PLAN: SNF, pending bed availability, when medically stable
[2025-01-15] MEDS: LOVENOX SC (18:16)
[2025-01-15] MEDS: LIDOCAINE 4% PATCH 1 PATCH TOPICAL (21:10)
[2025-01-15] MEDS: PREMARIN VAGINAL CREAM VAG (21:11)
[2025-01-16 00:01] VITALS: BP 116/55
[2025-01-16] MEDS: SEROQUEL 12.5 MG PO (04:47)
[2025-01-16] MEDS: KEFLEX 500 MG PO ×2 (07:37→20:20)
[2025-01-16] MEDS: MIRALAX 17 GRAMS PO (07:38)
[2025-01-16] MEDS: SEROQUEL 25 MG PO ×2 (07:38→20:20)
[2025-01-16 07:44] VITALS: BP 110/73
--- NOTE | 2025-01-16 08:55 | W.PN.HOSP.TC ---
Today's Communication/Plan
-
Oral antibiotics. Antipsychotic.
Assessment / Plan
Assessment / Plan
Physical exam:
General: Well Developed, Well Nourished and No Apparent Distress
HEENT: Normocephalic, Atraumatic and Moist Mucous Membranes
Respiratory: Clear to Auscultation; Negative Wheezes, Rales or Rhonchi
Cardiac: Regular Rhythm and S1/S2
GI: Soft, Nontender and Nondistended
Musculoskeletal: No Clubbing, No Cyanosis and No Edema
Neuro: Awake, Alert and oriented today, agitation on and off but much less
Psych: Calm
A/P:
Dementia with behavioral disturbances:
Evaluated by neurology and psychiatry
Currently on Seroquel 25 mg p.o. twice a day and as needed
Continue to monitor behavior and mental status closely.
Discussed with daughter prior and today discussed with another daughter at bedside on 01/16
PT OT
Klebsiella pneumonia UTI:
Continue oral cephalexin
Can consider retest after finishing treatment
Other medical problems:
Metabolic encephalopathy
Delirium
Hyponatremia
Hypertension
Severe protein calorie malnutrition
Presumed hypothyroidism
DVT prophylaxis:
Lovenox SQ
CODE STATUS:
DNR
Anticipated Discharge: 24 - 48 hours
Subjective/Interval History
-
Date of Service: January 16, 2025
Patient calm and cooperative this morning.
Objective Data
-
Vital Signs:
Vital Signs
Temp Pulse Resp BP Pulse Ox
97.7 F 76 18 110/73 97
01/16/25 07:44 01/16/25 07:44 01/16/25 07:44 01/16/25 07:44 01/16/25 07:44
I&O
01/15/25 01/16/25 01/17/25
06:59 06:59 06:59
Intake Total 600 / 600 2220 / 2220
Balance 600 / 600 2220 / 2220
[2025-01-16] MEDS: NORVASC 2.5 MG PO (12:57)
--- NOTE | 2025-01-16 12:57 | W.PN.UPDATE ---
Update Note
Progress Note Update
Patient is doing reasonably well, seems to be in good mood, not agitated. RN reports she has been calm since .
Discussed with daughter; at this point will leave the Seroquel at 25 mg bid but will consider reduction based on progress.
Will F/U
[2025-01-16 15:55] VITALS: BP 131/74
[2025-01-16] MEDS: LOVENOX 30 MG SC (17:21)
[2025-01-16] MEDS: TYLENOL 650 MG PO (17:52)
[2025-01-16] MEDS: PREMARIN VAGINAL CREAM VAG (20:20)
[2025-01-16] MEDS: LIDOCAINE 4% PATCH 1 PATCH TOPICAL (20:20)
[2025-01-16 23:15] VITALS: BP 101/59
[2025-01-17] MEDS: SEROQUEL 12.5 MG PO (03:44)
[2025-01-17 07:10] VITALS: BP 124/85
[2025-01-17] MEDS: SEROQUEL 25 MG PO ×2 (08:29→21:26)
[2025-01-17] MEDS: MIRALAX 17 GRAMS PO (08:29)
[2025-01-17] MEDS: KEFLEX 500 MG PO ×2 (08:29→21:25)
--- NOTE | 2025-01-17 09:06 | W.PN.HOSP.TC ---
Today's Communication/Plan
-
Antibiotics. Antipsychotics.
Assessment / Plan
Assessment / Plan
Physical exam:
General: Well Developed, Well Nourished and No Apparent Distress
HEENT: Normocephalic, Atraumatic and Moist Mucous Membranes
Respiratory: Clear to Auscultation; Negative Wheezes, Rales or Rhonchi
Cardiac: Regular Rhythm and S1/S2
GI: Soft, Nontender and Nondistended
Musculoskeletal: No Clubbing, No Cyanosis and No Edema
Neuro: Awake, Alert and oriented today, agitation on and off but much less
Psych: Calm
A/P:
Dementia with behavioral disturbances:
Evaluated by neurology and psychiatry
Currently on Seroquel 25 mg p.o. twice a day and as needed
Continue to monitor behavior and mental status closely.
Discussed with both daughters today on 01/17 (one at bedside and the other one over the phone)
PT OT
Medically ready for discharge if behavior remains manageable as is.
manager oncology for discharge dispo
Klebsiella pneumonia UTI:
Continue oral cephalexin
Can consider retest after finishing treatment
Other medical problems:
Metabolic encephalopathy
Delirium
Hyponatremia
Hypertension
Severe protein calorie malnutrition
Presumed hypothyroidism
DVT prophylaxis:
Lovenox SQ
CODE STATUS:
DNR
Anticipated Discharge: Within 24 hours
Subjective/Interval History
-
Date of Service: January 17, 2025
She is doing very well now. More calm and she is engaging in normal conversation and apologizing for anything that happened prior. No episodes of agitations over the last 48 hours. Afebrile
Objective Data
-
Vital Signs:
Vital Signs
Temp Pulse Resp BP Pulse Ox
97.6 F 70 18 124/85 100
01/17/25 07:10 01/17/25 07:10 01/17/25 07:10 01/17/25 07:10 01/17/25 07:10
I&O
01/16/25 01/17/25 01/18/25
06:59 06:59 06:59
Intake Total 2220 / 2220 840 / 840
Balance 2220 / 2220 840 / 840
[2025-01-17] MEDS: REFRESH EYE DROPS (PF) 1 DROPS OPHTH (11:05)
--- NOTE | 2025-01-17 11:47 | W.PN.UPDATE ---
Update Note
Progress Note Update
Patient is doing well, good mood, has not been agitated or aggressive. I discussed the possibility of reducing the dose of Seroquel, presently she is on 25 mg bid. Daughter however is reluctant at this point but is aware of black box warning and
patient wants the decision to be with the daughter. She would consider reduction in the future; we will F/U.
[2025-01-17] MEDS: NORVASC 2.5 MG PO (13:37)
[2025-01-17 15:00] VITALS: BP 108/60
[2025-01-17] MEDS: LOVENOX 30 MG SC (19:00)
[2025-01-17] MEDS: LIDOCAINE 4% PATCH 1 PATCH TOPICAL (21:27)
[2025-01-17] MEDS: PREMARIN VAGINAL CREAM 1 APPLIC VAG (21:28)
[2025-01-17 23:13] VITALS: BP 114/62
[2025-01-18] MEDS: REFRESH EYE DROPS (PF) 1 DROPS OPHTH (07:44)
[2025-01-18] MEDS: MIRALAX 17 GRAMS PO (07:44)
[2025-01-18] MEDS: KEFLEX 500 MG PO ×2 (07:44→19:50)
[2025-01-18] MEDS: SEROQUEL 25 MG PO ×2 (07:44→19:51)
[2025-01-18 07:54] VITALS: BP 142/75
--- NOTE | 2025-01-18 11:52 | CM ---
Met with patient and at bedside
Spoke with hospitalist
Patient calm, no agitation, appropriate conversation
PT/OT updated evals today
Current with [facility] - notified liaison [facility]
[2025-01-18] MEDS: NORVASC 2.5 MG PO (12:00)
[2025-01-18 12:05] VITALS: BP 135/80; PULSE 76; O2SAT 99
--- NOTE | 2025-01-18 12:10 | CM ---
Patient seen at bedside with
Patient calm, pleasant, appropriate conversation
Last PT/OT eval 01/15
PT/OT evals today
Current with [facility], notified [facility] liaison-referral in [facility]
PLAN: [facility]
--- NOTE | 2025-01-18 15:11 | W.PN.HOSP.TC ---
Today's Communication/Plan
-
Continue oral antibiotics
PT/OT, promote OOB
Likely discharge home Saturday
Assessment / Plan
Assessment / Plan
#Urinary tract infection
#H/O recurrent UTI
#Metabolic encephalopathy
-Recently treated for urinary tract infection with 5 days antibiotics, question fecal incontinence contributing (?)
-Urinalysis yesterday consistent with infection; does have tenderness to the suprapubic palpation
-Started on IV ceftriaxone empirically; urine culture with K. pneumoniae (resistant to ampicillin)
-Mental status has improved vastly since initiation of antibiotic
-Discussed with urology for close OP follow-up appointment
Plan
-Continue with Keflex with last day of antibiotics scheduled 01/20/2025
-Close OP follow-up with urology for consideration of maintenance antibiotic
-Plan for OP CT A/P without contrast to assess for stone prior to OV
-Will need to repeat urine culture at 3 weeks to reassess for infection
-Trend CBC and temperature curve here
#Delirium
-This morning was altered, concerned about her who was just outside the room and perfectly fine
-No fevers or other signs of worsening infection, has been in good mental state last couple of days
-Will resume Seroquel at 12.5 mg as needed up to 3 times daily for agitation/delirium
-Continue to monitor her mental status; optimize natural lighting, frequent redirection
-Avoid benzodiazepines
#Dementia (?)
-Patient has no formal diagnosis of dementia, was concerns due to mental changes at admission
-Cannot rule out that she does not have underlying cognitive process but needs formal diagnosis
-Should have follow-up with neurology as OP for neuropsychiatric eval
-Discontinued standing Namenda/Aricept/Seroquel at family request
#Hypothyroidism
-TSH now normal with starting low-dose levothyroxine
-Daughter concerned that patient's confusion coincided with starting low-dose levothyroxine a few weeks ago
-Levothyroxine was stopped here upon patient and family request
#Essential hypertension
-Continue amlodipine 2.5 mg daily
#Severe protein Calorie Malnutrition
-Encourage oral intake, started chocolate Ensure
-BMI 17.5, weight 38 kg
DVT prophylaxis: subcu Lovenox
Diet: Regular
CODE STATUS: Full code
Anticipated Discharge: 24 - 48 hours
Subjective/Interval History
-
Date of Service: January 18, 2025
Seen and examined at the bedside. No acute events reported overnight. AFVSS this morning
Her mental status is remarkably improved since I saw her last in December. Less agitation and more oriented. She denies any complaints this morning
Spoke with at the bedside and will have her work with PT, consider discharge home when stable
Objective Data
-
Vital Signs:
Vital Signs
Temp Pulse Resp BP Pulse Ox
97.6 F 76 18 135/80 100
01/18/25 07:54 01/18/25 12:00 01/18/25 07:54 01/18/25 12:00 01/18/25 07:54
I&O
01/17/25 01/18/25 01/19/25
06:59 06:59 06:59
Intake Total 840 / 840 600 / 600
Balance 840 / 840 600 / 600
Review of Systems
-
History Source: Patient
All other systems: Reviewed and negative
Physical Exam
-
General: Well Developed, No Apparent Distress and Cachectic
HEENT: Normocephalic, Atraumatic and Moist Mucous Membranes
Respiratory: Clear to Auscultation and Non Labored Respirations
Cardiac: Regular Rhythm and S1/S2; Negative Murmur, Rub or Gallop
GI: Soft, Nontender, Nondistended and Normal Bowel Sounds
Musculoskeletal: No Clubbing, No Cyanosis and No Edema
Skin: Warm and Dry; Negative Rash
Neuro: Awake, Alert, Oriented and Nonfocal/Grossly Intact
Psych: Calm
[2025-01-18 15:30] VITALS: BP 139/87
[2025-01-18] MEDS: LOVENOX 30 MG SC (17:05)
[2025-01-18] MEDS: LIDOCAINE 4% PATCH 1 PATCH TOPICAL (21:28)
[2025-01-18] MEDS: PREMARIN VAGINAL CREAM 1 APPLIC VAG (21:29)
[2025-01-18 23:04] VITALS: BP 128/78
[2025-01-19 07:54] VITALS: BP 123/70
[2025-01-19] MEDS: SEROQUEL 25 MG PO ×2 (07:59→20:27)
[2025-01-19] MEDS: MIRALAX 17 GRAMS PO (07:59)
[2025-01-19] MEDS: KEFLEX 500 MG PO ×2 (07:59→20:27)
[2025-01-19] MEDS: REFRESH EYE DROPS (PF) 1 DROPS OPHTH ×2 (07:59→12:19)
--- NOTE | 2025-01-19 11:40 | W.PN.UPDATE ---
Update Note
Progress Note Update
Patient seen sitting up in a chair in her room, chart reviewed, discussed with staff. Ms. Rothman appears to be doing much better than when I last saw her. She is eager to go home tomorrow. She tells me her son will be coming to visit and she is
very excited. Denies any side effects from Seroquel at this time. No issues overnight. No oversedation observed.
Impression/Plan: TME with behavioral disturbances, likely related to UTI m- resolved; R/O dementia - For now, continue with Seroquel 25mg BID. Risks, benefits, side effects, black box warning discussed previously with patient, , and
daughter. Could consider weaning off to HS only if any concerns arise. May benefit from a formal dementia work up as an OP.
[2025-01-19] MEDS: NORVASC 2.5 MG PO (12:19)
--- NOTE | 2025-01-19 12:26 | W.PN.HOSP.TC ---
Today's Communication/Plan
-
Last day of antibiotics
Continue Seroquel standing and as needed
Discharge home with home care tomorrow
Assessment / Plan
Assessment / Plan
#Urinary tract infection
#H/O recurrent UTI
#Metabolic encephalopathy
-Recently treated for urinary tract infection with 5 days antibiotics, question fecal incontinence contributing (?)
-Urinalysis yesterday consistent with infection; does have tenderness to the suprapubic palpation
-Started on IV ceftriaxone empirically; urine culture with K. pneumoniae (resistant to ampicillin)
-Mental status has improved vastly since initiation of antibiotic
-Discussed with urology for close OP follow-up appointment
Plan
-Continue with Keflex with last day of antibiotics scheduled 01/20/2025
-Close OP follow-up with urology for consideration of maintenance antibiotic
-Plan for OP CT A/P without contrast to assess for stone prior to OV
-Will need to repeat urine culture at 3 weeks to reassess for infection
-Trend CBC and temperature curve here
#Delirium
-This morning was altered, concerned about her who was just outside the room and perfectly fine
-No fevers or other signs of worsening infection, has been in good mental state last couple of days
-Will resume Seroquel at 12.5 mg as needed up to 3 times daily for agitation/delirium
-Continue to monitor her mental status; optimize natural lighting, frequent redirection
-Avoid benzodiazepines
#Dementia (?)
-Patient has no formal diagnosis of dementia, was concerns due to mental changes at admission
-Cannot rule out that she does not have underlying cognitive process but needs formal diagnosis
-Should have follow-up with neurology as OP for neuropsychiatric eval
-Discontinued standing Namenda/Aricept/Seroquel at family request
#Hypothyroidism
-TSH now normal with starting low-dose levothyroxine
-Daughter concerned that patient's confusion coincided with starting low-dose levothyroxine a few weeks ago
-Levothyroxine was stopped here upon patient and family request
#Essential hypertension
-Continue amlodipine 2.5 mg daily
#Severe protein Calorie Malnutrition
-Encourage oral intake, started chocolate Ensure
-BMI 17.5, weight 38 kg
DVT prophylaxis: subcu Lovenox
Diet: Regular
CODE STATUS: Full code
Anticipated Discharge: Within 24 hours
Subjective/Interval History
-
Date of Service: January 19, 2025
Seen and examined at the bedside. No acute events reported overnight. AFVSS this morning
Mental status remains stable. Tentative plan for discharge tomorrow back to home care
Denies any new complaints as of this morning
Objective Data
-
Vital Signs:
Vital Signs
Temp Pulse Resp BP Pulse Ox
97.6 F 73 18 123/70 100
01/19/25 07:54 01/19/25 07:54 01/19/25 07:54 01/19/25 07:54 01/19/25 07:54
I&O
01/18/25 01/19/25 01/20/25
06:59 06:59 06:59
Intake Total 600 / 600 1380 / 1380
Balance 600 / 600 1380 / 1380
Review of Systems
-
History Source: Patient
All other systems: Reviewed and negative
Physical Exam
-
General: Well Developed, No Apparent Distress and Cachectic
HEENT: Normocephalic, Atraumatic and Moist Mucous Membranes
Respiratory: Clear to Auscultation and Non Labored Respirations
Cardiac: Regular Rhythm and S1/S2; Negative Murmur, Rub or Gallop
GI: Soft, Nontender, Nondistended and Normal Bowel Sounds
Musculoskeletal: No Clubbing, No Cyanosis and No Edema
Skin: Warm, Dry and Normal Turgor; Negative Rash
Neuro: AO x 3 and Nonfocal/Grossly Intact
Psych: Calm
[2025-01-19 15:30] VITALS: BP 124/68
--- NOTE | 2025-01-19 16:56 | CM ---
Patient seen at bedside.
IMM explained & signed.
tentative d/c tomorrow
Current with [facility]
PLAN: home with [facility]
daughter to transport
[2025-01-19] MEDS: LOVENOX 30 MG SC (18:03)
[2025-01-19] MEDS: LIDOCAINE 4% PATCH 1 PATCH TOPICAL (21:36)
[2025-01-19] MEDS: PREMARIN VAGINAL CREAM VAG (21:47)
[2025-01-19 23:10] VITALS: BP 91/48
[2025-01-20 07:30] VITALS: BP 113/62
[2025-01-20] MEDS: KEFLEX 500 MG PO (08:09)
[2025-01-20] MEDS: MIRALAX 17 GRAMS PO (08:09)
[2025-01-20] MEDS: SEROQUEL 25 MG PO (08:09)
--- NOTE | 2025-01-20 09:15 | VNURNOTE ---
Chart reviewed. Patient is [facility] with [facility], Resumption referral accepted. [facility] liaison spoke with patient's spouse Bill who confirmed he would like resumption of services. Will follow, appears tentative hospital [facility] today.
[2025-01-20] MEDS: REFRESH EYE DROPS (PF) 1 DROPS OPHTH (09:59)
[2025-01-20] MEDS: NORVASC PO (11:07)
--- NOTE | 2025-01-20 11:23 | W.PN.HOSP.TC ---
Today's Communication/Plan
-
Discharge
Continue Seroquel twice daily and as needed
Completed course of antibiotics here
OP urology follow-up with repeat urine culture and CT A/P
Assessment / Plan
Assessment / Plan
#Urinary tract infection
#H/O recurrent UTI
#Metabolic encephalopathy
-Recently treated for urinary tract infection with 5 days antibiotics, question fecal incontinence contributing (?)
-Urinalysis yesterday consistent with infection; does have tenderness to the suprapubic palpation
-Started on IV ceftriaxone empirically; urine culture with K. pneumoniae (resistant to ampicillin)
-Mental status has improved vastly since initiation of antibiotic
-Discussed with urology for close OP follow-up appointment
Plan
-Continue with Keflex with last day of antibiotics scheduled 01/20/2025
-Close OP follow-up with urology for consideration of maintenance antibiotic
-Plan for OP CT A/P without contrast to assess for stone prior to OV
-Will need to repeat urine culture at 3 weeks to reassess for infection
-Trend CBC and temperature curve here
#Delirium
-This morning was altered, concerned about her who was just outside the room and perfectly fine
-No fevers or other signs of worsening infection, has been in good mental state last couple of days
-Will resume Seroquel at 12.5 mg as needed up to 3 times daily for agitation/delirium
-Continue to monitor her mental status; optimize natural lighting, frequent redirection
-Avoid benzodiazepines
#Dementia (?)
-Patient has no formal diagnosis of dementia, was concerns due to mental changes at admission
-Cannot rule out that she does not have underlying cognitive process but needs formal diagnosis
-Should have follow-up with neurology as OP for neuropsychiatric eval
-Discontinued standing Namenda/Aricept/Seroquel at family request
#Hypothyroidism
-TSH now normal with starting low-dose levothyroxine
-Daughter concerned that patient's confusion coincided with starting low-dose levothyroxine a few weeks ago
-Levothyroxine was stopped here upon patient and family request
#Essential hypertension
-Continue amlodipine 2.5 mg daily
#Severe protein Calorie Malnutrition
-Encourage oral intake, started chocolate Ensure
-BMI 17.5, weight 38 kg
DVT prophylaxis: subcu Lovenox
Diet: Regular
CODE STATUS: Full code
Anticipated Discharge: Today
Subjective/Interval History
-
Date of Service: January 20, 2025
Seen and examined at the bedside. No acute events reported overnight. AFVSS as of this morning
Mental status remains stable, no agitation or confusion
Patient denies any new complaints. Discharge today
Objective Data
-
Vital Signs:
Vital Signs
Temp Pulse Resp BP Pulse Ox
97.8 F 75 16 102/59 97
01/20/25 07:30 01/20/25 11:07 01/20/25 07:30 01/20/25 11:07 01/20/25 09:30
I&O
01/19/25 01/20/25 01/21/25
06:59 06:59 06:59
Intake Total 1380 / 1380 2220 / 2220
Balance 1380 / 1380 2220 / 2220
Review of Systems
-
History Source: Patient
All other systems: Reviewed and negative
Physical Exam
-
General: Well Developed, No Apparent Distress and Cachectic
HEENT: Normocephalic, Atraumatic and Moist Mucous Membranes
Respiratory: Clear to Auscultation and Non Labored Respirations
Cardiac: Regular Rhythm and S1/S2; Negative Murmur, Rub or Gallop
GI: Soft, Nontender, Nondistended and Normal Bowel Sounds
Musculoskeletal: No Clubbing, No Cyanosis and No Edema
Skin: Warm and Dry; Negative Rash
Neuro: AO x 3 and Nonfocal/Grossly Intact; Negative Tremors
Psych: Calm
--- NOTE | 2025-01-20 12:20 | W.PN.UPDATE ---
Update Note
Progress Note Update
reviewed chart. spoke w nursing. spoke briefly with patient. mrs stroud is at this point doing pretty well. she has continued to take seroquel. decision support manager this weekend discussed w roque whether to taper and dc but d favored continuing it. she is being
discharged today. would monitor the seroquel closely. if patient continues to be well would consider whether to dc. another reason to reconsider would be if she develops qtc prolongation , she she appears sedated or experiences lightheadedness
weakness or dizziness during the course of the day. psych will sign off.
--- NOTE | 2025-01-20 14:21 | CM ---
Patient for discharge today
IMM signed yesterday - in chart
currrent with [facility] liaison notified - referral in [facility]
PLAN: home with [facility]
daughter to transport
--- NOTE | 2025-01-20 14:58 | W.DCSUMMARY ---
Discharge Summary
Discharge Data
Date of Admission: 01/04/25
Date of Discharge: 01/20/25
Total time spent discharging patient (in min): 39
-
Pending Results: No
Hospital Course
84-year-old female with hypertension, malnutrition, hypothyroidism, history of ovarian cancer that presented to the hospital with altered mental status and family concern for recurrent UTI. Was initially evaluated by medicine and neurology who had
further suspicion that patient was suffering from progressive dementia with associated delirium. Was trialed on pro cholinergic medications including memantine, Aricept, Seroquel. Urinalysis was obtained that showed signs of UTI and urine culture
subsequently demonstrated Klebsiella pneumoniae with resistance to ampicillin. Was started empirically on IV ceftriaxone with improved mental state, with transition to Keflex after urine culture results. Completed 14 days of antibiotics while in
the hospital. Mental status continued to fluctuate with episodes of sundowning in the mornings and evenings. Ultimately was stabilized on Seroquel 25 mg twice daily with 12.5 mg up to 3 times daily as needed for agitation. Recommend holding
Seroquel for signs of sedation.
As patient has had recurrent UTIs family was inquisitive about suppressive antibiotics chronically. Spoke Dr. Orozco from urology who recommended outpatient office follow-up. Provided prescription for urine culture to be performed on 01/25/2025.
Also provided prescription for CT A/P without IV contrast to be performed 1 week prior to office visit with urology, for assessment of underlying nephro/ureterolithiasis. Also provided a 7-day prescription for cefdinir if patient has recurrent UTI
symptoms prior to office visit with urologist. Recommended that patient follow-up with Dr. Orozco as well as family provider after discharge from the hospital.
Discharge Plan
-
Patient Disposition: Shelter/SNF
Discharge Diagnosis/Procedures: Encephalopathy
Recurrent UTI
Dementia/Delirium
Condition: Fair
Diet: No restrictions
Activity: As tolerated
Driving Restrictions: No driving
Bathing Restrictions: None
Blood Work: None
Others Tests: Have repeat urine culture performed on 01/25/2025 with results sent to PCP and urologist
Have CT A/P without IV contrast performed 1 week prior to urologist appointment (ICD diagnosis code provided, should be the only code you need to schedule this test)
Other Services: PT and OT
Activity Restrictions/Additional Instructions:
Follow up with family doctor after discharge. Should be seen in office within 1 to 2 weeks of discharge from the hospital
Should have follow-up with urologist, referral provided
Instructions: Urinary tract infections in adults, Dementia (including Alzheimer disease)
Referrals:
Aaron Orozco MD [Active] - in one to two weeks
Sandra Kerr MD [Family Provider] -
Additional Discharge Medication Instructions: Completed course of antibiotics while in the hospital. You can use the as needed prescription for cefdinir if she starts to develop symptoms of urinary tract infection (Frequent urination, malodorous
urine, burning with urination)
Continue quetiapine (Seroquel) 25 mg twice daily --- if patient appears sedated then do not give medicine
Continue quetiapine 12.5 mg up to 3 times daily as needed for agitation
Continue Premarin vaginal cream for dryness
Continue refresh classic eyedrops as needed for dry eyes
Prescriptions:
New
Refresh Classic (PF) 1.4-0.6 % Dropperette
1 drp ophthalmic (eye) QIDPRN PRN (Reason: dry eyes) Qty: 30 0RF
quetiapine 25 mg Tablet
25 mg PO BID 30 Days Qty: 60 0RF
quetiapine 25 mg Tablet
12.5 mg PO TIDPRN PRN (Reason: AGITATION) 30 Days Qty: 30 0RF
Premarin 0.625 mg/gram Cream
1 applic vaginal HS Qty: 30 0RF
Continued
polyethylene glycol 3350 [Miralax] 17 gram Powder In Packet
17 g PO DAILY Qty: 0 0RF
levothyroxine 25 mcg Tablet
25 mcg PO DAILY @ 0600 Qty: 30 0RF
acetaminophen [Tylenol] 325 mg Tablet
650 mg PO DAILYPRN PRN (Reason: mild pain)
amlodipine 2.5 mg tablet
2.5 mg PO NOON
Discharge Orders:
Discharge Patient (As Directed); Ordered 01/20/25
Ordered By: Coleman Saleh
Discharge Date and Time
Print Language: ETHIOPIAN
[2025-01-20 15:20] VITALS: BP 113/56
--- NOTE | 2025-01-20 15:53 | PTCARENOTE ---
Patient discharged home, transported by daughter. No IV access on patient. Patient's daughter concerned about patient's LE swelling, MD aware, MD stated patient to continue wearing compression socks she has at home. Patient and daughter verbalized
understanding. Patient's daughter provided scripts for CT scan, urine cx, and cefdinir per MD. This RN reviewed discharge paperwork with daughter who verbalized understanding. Patient dressed by tech, belongings gathered in room by daughter
including RW. Patient taken down to daughter's car at [facility] via staff escort and wheelchair.
== END 2025-01-20 16:09 | disposition home health service (06) | DRG 884 ==
LOC: 2 NORTH 08:46
PROVIDERS: Hospitalist; Physician Assistant; Psychiatry & Neurology Psychiatry; ADMITTING PHYSICIAN Family Medicine; ATTENDING PHYSICIAN Internal Medicine; CONSULT PHYSICIAN Psychiatry & Neurology Clinical Neurophysiology; CONSULT PHYSICIAN Psychiatry & Neurology Psychiatry; EMERGENCY PHYSICIAN Emergency Medicine; FAMILY PHYSICIAN Family Medicine
DX: F03.918 Unspecified dementia, unspecified severity, with other behavioral disturbance (principal); G93.41 Metabolic encephalopathy; E43 Unspecified severe protein-calorie malnutrition; N39.0 Urinary tract infection, site not specified; Z68.1 Body mass index [BMI] 19.9 or less, adult; F05 Delirium due to known physiological condition; E87.1 Hypo-osmolality and hyponatremia; Z87.440 Personal history of urinary (tract) infections; I10 Essential (primary) hypertension; E03.9 Hypothyroidism, unspecified; E78.00 Pure hypercholesterolemia, unspecified; Z85.43 Personal history of malignant neoplasm of ovary; Z87.891 Personal history of nicotine dependence; Z88.0 Allergy status to penicillin; Z91.041 Radiographic dye allergy status; E86.0 Dehydration; Z79.899 Other long term (current) drug therapy; Z79.890 Hormone replacement therapy; Z90.710 Acquired absence of both cervix and uterus
CPT/HCPCS: 70450; 80048; 80053; 81003; 81015; 82746; 83735; 84443; 84484; 85025; 87077; 87086; 87186; 93005; 96360; 96361; 97116; 97163; 97166; 97167; 97530; 97535; 99285; J2358

== ENCOUNTER → 2025-02-01 08:24 | Outpatient (REF) | payer OTHER, SELFPAY | LOC: HWRAD 08:24 | PROVIDERS: ATTENDING PHYSICIAN Family Medicine | DX: Z87.19 Personal history of other diseases of the digestive system (principal); Z87.440 Personal history of urinary (tract) infections; R63.4 Abnormal weight loss | CPT/HCPCS: 74176 ==

== ENCOUNTER → 2025-02-23 14:00 | Outpatient (REF) | payer OTHER, SELFPAY | LOC: REG 14:00 | PROVIDERS: ATTENDING PHYSICIAN Obstetrics & Gynecology | DX: Z22.322 Carrier or suspected carrier of Methicillin resistant Staphylococcus aureus (principal) | CPT/HCPCS: 36415; 87070 ==

== ENCOUNTER → 2025-02-25 08:59 | Outpatient (REF) | payer OTHER, SELFPAY | LOC: REG 08:59 | PROVIDERS: ATTENDING PHYSICIAN Obstetrics & Gynecology | DX: Z22.322 Carrier or suspected carrier of Methicillin resistant Staphylococcus aureus (principal) | CPT/HCPCS: 87070 ==